=== PATIENT | female | born 1955 | race Caucasian/White ===

== ENCOUNTER 2018-08-14 10:35 | Emergency (ER) | payer MEDICAID ==
[~2018-08-14] VITALS: Ht 175.3 cm; Wt 66.7 kg
[2018-08-14 10:35] VITALS: BP 152/91
[~2018-08-14 10:35] MED LIST: ASPI81CH43; [UNRECOGNIZED DRUG - CODE]
[2018-08-14] MEDS ORDERED: KETOROLAC TROMETH 30 MG/ML 1ML VIAL IM ONE (13:45)
== END 2018-08-14 14:27 | disposition home or self-care (01) ==
LOC: ER 10:42
DX: S80.02XA Contusion of left knee, initial encounter (principal); J44.9 Chronic obstructive pulmonary disease, unspecified; I48.91 Unspecified atrial fibrillation; Z88.0 Allergy status to penicillin; Z98.51 Tubal ligation status; X58.XXXA Exposure to other specified factors, initial encounter; Y93.89 Activity, other specified; Y92.89 Other specified places as the place of occurrence of the external cause; Y99.8 Other external cause status
CPT/HCPCS: 29505; 73562; 96372; 99283; J1885

== ENCOUNTER 2021-06-13 18:09 | Emergency (ER) | payer OTHER, MEDICAID ==
[~2021-06-13] VITALS: Ht 172.7 cm; Wt 59.0 kg
[2021-06-13] MEDS ORDERED: KETOROLAC TROMETH 30 MG/ML 1ML VIAL IV ONE (20:15)
[2021-06-13] MEDS ORDERED: fentaNYL CITRATE 100 MCG/2 ML VL IV ONE (20:15)
[2021-06-13 21:14] LABS: Basophils # (auto) 0.1 10 ^3/uL (0-0.2); Basophils % (auto) 0.9 % (0.0-2.0); Eosinophils # (auto) 0 10 ^3/uL (0-0.8); Eosinophils % (auto) 0.1 % (0.0-7.0); Hematocrit 35.6 % (36.0-46.0); Hemoglobin 12.1 g/dL (12.2-16.2); Lymphocytes # (auto) 0.5 10 ^3/uL (0.4-5.4); Lymphocytes % (auto) 5.6 % (10.0-50.0); Mean Corpuscular Hemoglobin 33.5 pg (28.0-32.0); Mean Corpuscular Hgb Conc. 34.1 g/dL (32.0-36.0); Monocytes # (auto) 0.5 10 ^3/uL (0-1.3); Monocytes % (auto) 5.7 % (0.0-12.0); Neutrophils # (auto) 7.8 10 ^3/uL (1.6-8.6); Neutrophils % (auto) 87.7 % (37.0-80.0); Red Blood Cells 3.63 10^6/uL (4.0-5.20); Red Cell Distribution Width 13.2 % (11.8-14.3); White Blood Cell 8.8 10^3/uL (4.4-10.8)
[2021-06-13 21:18] LABS: Albumin 3.7 g/dL (3.4-5.0); BUN/Creatinine Ratio 15.2; Calcium 8.2 mg/dL (8.5-10.1); Potassium 3.4 mmol/L (3.5-5.1)
[2021-06-13 21:23] LABS: Bilirubin, Total 0.7 mg/dL (0.2-1.0); Total Protein 6.2 g/dL (6.4-8.2)
[2021-06-13 21:28] LABS: INR 0.97 (0.9-1.15); Partial Thromboplastin Time 26.8 sec (23.6-33.0)
[2021-06-14] MEDS ORDERED: KETOROLAC TROMETH 30 MG/ML 1ML VIAL IV ONE (03:00)
[2021-06-14 04:15] VITALS: BP 123/78
== END 2021-06-14 04:30 | disposition short-term general hospital (02) ==
LOC: ER 18:10
DX: S32.049A Unspecified fracture of fourth lumbar vertebra, initial encounter for closed fracture (principal); S22.31XA Fracture of one rib, right side, initial encounter for closed fracture; Z88.0 Allergy status to penicillin; Z98.51 Tubal ligation status; S72.102A Unspecified trochanteric fracture of left femur, initial encounter for closed fracture; W18.39XA Other fall on same level, initial encounter; Y93.89 Activity, other specified; Y92.89 Other specified places as the place of occurrence of the external cause; Y99.8 Other external cause status
CPT/HCPCS: 36415; 80053; 84484; 85025; 85610; 85730; 87426; 93005; 96374; 96376; 99285; J1885; J3010

== ENCOUNTER 2022-02-08 10:19 | Emergency (ER) | payer OTHER, MEDICAID ==
[~2022-02-08] VITALS: Ht 172.7 cm; Wt 59.0 kg
[2022-02-08] MEDS ORDERED: HYDROcodone-ACET 5/325MG TAB PO ONE (15:00)
[2022-02-08 15:30] LABS: Basophils # (auto) 0.1 10 ^3/uL (0-0.2); Basophils % (auto) 0.7 % (0.0-2.0); Eosinophils # (auto) 0 10 ^3/uL (0-0.8); Eosinophils % (auto) 0.4 % (0.0-7.0); Hematocrit 34.8 % (36.0-46.0); Hemoglobin 11.7 g/dL (12.2-16.2); Lymphocytes # (auto) 1.8 10 ^3/uL (0.4-5.4); Lymphocytes % (auto) 24.2 % (10.0-50.0); Mean Corpuscular Hemoglobin 33.5 pg (28.0-32.0); Mean Corpuscular Hgb Conc. 33.6 g/dL (32.0-36.0); Mean Corpuscular Volume 99.7 fL (80.0-100.0); Monocytes # (auto) 0.4 10 ^3/uL (0-1.3); Monocytes % (auto) 5.5 % (0.0-12.0); Neutrophils # (auto) 5.3 10 ^3/uL (1.6-8.6); Neutrophils % (auto) 69.2 % (37.0-80.0); Red Blood Cells 3.49 10^6/uL (4.0-5.20); Red Cell Distribution Width 12.7 % (11.8-14.3); White Blood Cell 7.6 10^3/uL (4.4-10.8)
[2022-02-08 16:03] LABS: Albumin 4.1 g/dL (3.4-5.0); BUN/Creatinine Ratio 25.9; Calcium 8.4 mg/dL (8.5-10.1); Potassium 4.2 mmol/L (3.5-5.1)
[2022-02-08 16:07] LABS: Bilirubin, Total 0.5 mg/dL (0.2-1.0); Total Protein 6.7 g/dL (6.4-8.2)
[2022-02-08 17:00] VITALS: BP 141/85
== END 2022-02-08 17:00 | disposition home or self-care (01) ==
LOC: EDBD 10:19 → ER 10:19
DX: N20.0 Calculus of kidney (principal); K80.80 Other cholelithiasis without obstruction; I48.91 Unspecified atrial fibrillation; J44.9 Chronic obstructive pulmonary disease, unspecified; F17.210 Nicotine dependence, cigarettes, uncomplicated; Z90.89 Acquired absence of other organs; Z79.82 Long term (current) use of aspirin; Z79.899 Other long term (current) drug therapy; Z88.0 Allergy status to penicillin; V49.9XXA Car occupant (driver) (passenger) injured in unspecified traffic accident, initial encounter; Y93.89 Activity, other specified; Y92.89 Other specified places as the place of occurrence of the external cause; Y99.8 Other external cause status
CPT/HCPCS: 36415; 74176; 76705; 80053; 83690; 85025; 93005

== ENCOUNTER 2024-03-08 16:53 | Inpatient (IN) | payer OTHER, MEDICAID ==
[~2024-03-08] VITALS: Ht 167.6 cm; Wt 67.4 kg
--- NOTE | 2024-03-08 17:38 | ED.PDOC ---
Musculoskeletal HPI Comments 69Y F with PMHx Afib, COPD, and CA presents to ED via EMS for chief complaint rt ankle pain s/p fall. Pt states she tried getting up from walker when she slipped, fell, and landed on her rt ankle. Pt presents to ED with rt ankle deformity, swelling, and redness. Allergies include PCNs. Chief Complaint: Lower Extremity Time Seen by MD: 17:23 Primary Care Provider: UNKNOWN Reviewed Notes: Medications, Allergies Allergies: Coded Allergies: Penicillins (Verified Allergy, Intermediate, 02/08/22) Home Meds Reported Medications Hxsuyzzuv-Hvo-Mi W/Apap (Cough Syrup M) Syp 10/07/11 Aspirin (Asa) 81 Mg Ch 10/07/11 Information Source: Patient, Emergency Med Personnel Mode of Arrival: EMS Brought in by: EMS Location: Right Extremity Location: Ankle Timing: Hours Prehospital treatment: Other Severity: Severe Able to Move Extremity: No Bear Weight: No Pain: Severe Mechanism: Twisting Circumstances: Fall Onset of Symptoms: After Trauma Symptoms: Swelling, Pain, Erythema DVT Risk Factors: NONE Last Tetanus: UTD Associated signs and symptoms: Ankle pain Past Medical History PAST MEDICAL HISTORY: AFIB, Cancer, COPD Surgical History: Tonsillectomy, Tubal Ligation 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 Family History Family History: Reviewed,noncontributory to illness Social History Smoker: Cigarettes Alcohol: Denies ETOH Use Drugs: Denies Drug Use Lives In: Home Constitutional: denies: chills, diaphoresis, fatigue, fever, malaise, sweats, weakness, others EENTM: denies: blurred vision, double vision, ear bleeding, ear discharge, ear drainage, ear pain, ear ringing, eye pain, eye redness, hearing loss, mouth pain, mouth swelling, nasal discharge, nose bleeding, nose congestion, nose pain, photophobia, tearing, throat pain, throat swelling, voice changes, others Respiratory: denies: cough, hemoptysis, orthopnea, SOB at rest, shortness of breath, SOB with excertion, stridor, wheezing, others Cardiovascular: denies: chest pain, dizzy spells, diaphoresis, Dyspnea on exertion, edema, irregular heart beat, left arm pain, lightheadedness, palp itations, PND, syncope, others Gastrointestinal: denies: abdomen distended, abdominal pain, blood streaked bowels, constipated, diarrhea, dysphagia, difficulty swallowing, hematemesis, melena, nausea, poor appetite, poor fluid intake, rectal bleeding, rectal pain, vomiting, others Genitourinary: denies: abnormal vagina bleeding, burning, dyspareunia, dysuria, flank pain, frequency, hematuria, incontinence, pain, , vagina discharge, urgency, others Neurological: denies: dizziness, fainting, headache, left sided numbness, left sided weakness, numbness, paresthesia, pre-existing deficit, right sided numbness, right sided weakness, seizure, speech problems, tingling, tremors, weakness, others Musculoskeletal: reports: others (rt ankle pain); denies: back pain, gout, joint pain, joint swelling, muscle pain, muscle stiffness, neck pain Integumetry: denies: bruises, change in color, change in hair/nails, dryness, laceration, lesions, lumps, rash, wounds, others Allergic/Immunocompromised: denies: Difficulty Healing, Frequent Infections, Hives, Itching, others Hematologic/Lymphatic: denies: anemia, blood clots, easy bleeding, easy bruising, swollen glands, others Endocrine: denies: excessive hunger, excessive sweating, excessive thirst, excessive urination, flushing, intolerance to cold, intolerance to heat, unexplained weight gain, unexplained weight loss, others Psychiatric: denies: anxiety, bipolar disorder, depression, hopeless, panic disorder, schizophrenia, sleepless, suicidal, others All Other Systems: Reviewed and Negative Physical Exam General Appearance: No Apparent Distress, Normal HEENT: Normal ENT Inspection, Pharynx Normal, TMs Normal Neck: Full Range of Motion, Non-Tender, Normal, Normal Inspection Respiratory: Chest Non-Tender, Lungs Clear, No Accessory Muscle Use, No Respiratory Distress, Normal Breath Sounds Cardiovascular: No Edema, No JVD, No Murmur, No Gallop, Normal Peripheral Pulses, Regular Rate/Rhythm Breast Exam: Deferred Gastrointestinal: No Organomegaly, Non Tender, No Pulsatile Mass, Normal Bowel Sounds, Soft Genitalia: Deferred Pelvic: Deferred Rectal: Deferred Extremities: No calf tenderness, Normal inspection, No pedal edema Musculoskeletal : Location: Right Extremity Location: Ankle Apperance: Swelling, Deformity, Limited ROM, Tenderness: Severe Neurologic: Alert, 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 Was a procedure done?: Yes Sedation Sedation?: Yes Informed consent obtained: Yes Sedation start time: 20:03 Sedation end time: 20:03 Sedation provider statement: Seraj Reduction Indication: Subluxation, Fracture Sedation: Ankle Intra-articular anesthetic juan: No Post-reduction x-ray show: Reduction, Good Alignment Informed consent obtained: Yes Risks/benefits/alt described: Yes Differential Diagnosis EXT Differential Diagnosis: Fracture, Sprain, Dislocation, Contusion, Strain X-Ray, Labs, Meds, VS Vital Signs Date Time Temp Pulse Resp B/P (MAP) Pulse Ox O2 Delivery O2 Flow Rate FiO2 03/08/24 19:20 98.7 90 18 124/69 (87) 95 98.7 03/08/24 18:45 87 15 140/84 03/08/24 18:15 89 15 96 Room Air* 0 21 03/08/24 18:15 89 15 150/73 (98) 96 03/08/24 17:08 98.6 100 14 145/97 (113) 98 Lab Test 03/08/24 18:18 Range/Units White Blood Count 5.4 4.4-10.8 10^3/uL Red Blood Count 3.23 L 4.0-5.20 10^6/uL Hemoglobin 10.4 L 12.2-16.2 g/dL Hematocrit 31.0 L 36.0-46.0 % Mean Corpuscular Volume 96.0 80.0-100.0 fL Mean Corpuscular Hemoglobin 32.1 H 28.0-32.0 pg Mean Corpuscular Hemoglobin Concent 33.4 32.0-36.0 g/dL Red Cell Distribution Width 14.4 H 11.8-14.3 % Platelet Count 243 140-450 10^3/uL Mean Platelet Volume 7.8 6.9-10.8 fL Neutrophils (%) (Auto) 71.9 37.0-80.0 % Lymphocytes (%) (Auto) 20.1 10.0-50.0 % Monocytes (%) (Auto) 6.5 0.0-12.0 % Eosinophils (%) (Auto) 0.5 0.0-7.0 % Basophils (%) (Auto) 1.0 0.0-2.0 % Neutrophils # (Auto) 3.8 1.6-8.6 10 ^3/uL Lymphocytes # (Auto) 1.1 0.4-5.4 10 ^3/uL Monocytes # (Auto) 0.3 0-1.3 10 ^3/uL Eosinophils # (Auto) 0 0-0.8 10 ^3/uL Basophils # (Auto) 0.1 0-0.2 10 ^3/uL Nucleated Red Blood Cells 0.0 % Prothrombin Time 10.9 9.3-11.8 sec Prothrombin Time INR 1.03 0.9-1.15 Sodium Level 146 H 136-145 mmol/L Potassium Level 3.3 L 3.5-5.1 mmol/L Chloride Level 113 H 98-107 mmol/L Carbon Dioxide Level 25 20-31 mmol/L Anion Gap 8 5-15 Blood Urea Nitrogen 19 9-23 mg/dL Creatinine 1.02 0.550-1.02 mg/dL Glomerular Filtration Rate Calc 59 >90 mL/min BUN/Creatinine Ratio 18.6 10.0-20.0 Serum Glucose 141 H 74-106 mg/dL Calcium Level 9.4 8.7-10.4 mg/dL Total Bilirubin 0.3 0.2-1.0 mg/dL Aspartate Amino Transferase (AST) 12 L 13-40 U/L Alanine Aminotransferase (ALT) 14 7-40 U/L Alkaline Phosphatase 69 46-116 U/L Total Protein 5.5 L 5.7-8.2 g/dL Albumin 3.8 3.2-4.8 g/dL Current Medications Medications (Trade) Dose Ordered Sig/Jez Route Start Time Stop Time Status Last Admin Morphine Sulfate 4 mg ONCE ONCE IV 03/08/24 18:45 03/08/24 18:46 DC 03/08/24 18:45 Ondansetron HCl (Zofran) 4 mg ONCE ONCE IV 03/08/24 18:45 03/08/24 18:46 DC 03/08/24 18:47 Midazolam HCl (Versed Injection) 1 mg ONCE ONCE IV 03/08/24 19:00 03/08/24 19:02 DC 03/08/24 19:[address] [address] Ph: [phone] DIAGNOSTIC IMAGING Diagnostic Imaging Report : [id number] Signed PATIENT: ZIA CONNOLLY ACCT: [id number] UNIT: [id number] : 1955 LOC: ER ROOM / BED: / AGE / SEX: 69 / F ADM STATUS: REG ER SERVICE 174 ORDERING PHYSICIAN: THOMAS SHANNON MD PROCEDURE(s): RANK2 - R ANKLE 2 VIEW XRAY REASON: ankle pain ORDER NUMBER(s): [id number], ACCESSION NUMBER(s): [id number] EXAM: XY R ANKLE 2 VIEW XRAY CLINICAL HISTORY: ankle pain COMPARISON: None TECHNIQUE: XY R ANKLE 2 VIEW XRAY Findings/Impression: 2 views of the right ankle. Moderately displaced comminuted fractures of the distal tibial and fibular metadiaphyses with moderate lateral angulation of the distal fracture fragments. Moderate soft tissue edema. Possible nondisplaced longitudinal fracture of the distal 2nd metatarsal. There is no evidence of dislocation, blastic, or lytic lesions. No radiopaque foreign bodies. ATED BY: DANA SMITH DO DICTATED DATE/TIME: 03/08/241847 SIGNED BY: DANA SMITH DO SIGNED DATE/TIME: 03/08/241847 CC: X-Ray, Labs, Meds, VS Comment [age] old female presents emergency room secondary to right ankle pain and deformity. Patient was walking when she had to be given trip and fall. She t hen noted her ankle was angulated medially. She was going to have sensation intact and able to move her toes. Pulses are intact. Patient states any movement of the ankle causes severe pain. X-ray shows a comminuted angulated fracture. My reached out to the orthopedic surgeon on-call, Dr. Padron who accepted the patient. Time of 1ST Reevaluation: 17:53 Reevaluation 1ST: Unchanged Patient Education/Counseling: Diagnosis, Treatment Family Education/Counseling: No Family Present Critical Care Note Critical Care Time?: No Stability Stability form required: No Heart Score Heart Score: Heart Score Response (Comments) Value History N/A 0 EKG N/A 0 Age N/A 0 Risk Factors N/A 0 Troponin N/A 0 Total 0 I personally scribed for TH[facility]ON [facility] on 03/08/24 at 17:38. Electronically submitted by Lay Wang ([facility] I personally scribed for THOMAS SHANNON MD ([facility]) on 03/08/24 at 18:45. Electronically submitted by Gómez Diallo ([facility]). I personally scribed for THOMAS SHANNON MD ([facility]) on 03/08/24 at 18:54. Electronically submitted by Lay Wang ([facility] THOMAS SHANNON MD Mar 08, 2024 17:38
[2024-03-08 18:15] VITALS: PULSE 89; RESP 15; O2SAT 96
[2024-03-08] MEDS: MORPHINE SULFATE 4 MG/ML SYR/VIAL IV ONE (18:45)
[2024-03-08] MEDS: ONDANSETRON HCL 4 MG/2 ML VIAL IV ONE (18:47)
[2024-03-08 18:49] LABS: Basophils # (auto) 0.1 10 ^3/uL (0-0.2); Eosinophils # (auto) 0 10 ^3/uL (0-0.8); Eosinophils % (auto) 0.5 % (0.0-7.0); Hemoglobin 10.4 g/dL (12.2-16.2); Lymphocytes # (auto) 1.1 10 ^3/uL (0.4-5.4); Lymphocytes % (auto) 20.1 % (10.0-50.0); Mean Corpuscular Hemoglobin 32.1 pg (28.0-32.0); Mean Corpuscular Hgb Conc. 33.4 g/dL (32.0-36.0); Monocytes # (auto) 0.3 10 ^3/uL (0-1.3); Monocytes % (auto) 6.5 % (0.0-12.0); Neutrophils # (auto) 3.8 10 ^3/uL (1.6-8.6); Neutrophils % (auto) 71.9 % (37.0-80.0); Platelet Count (auto) 243 10^3/uL (140-450); Red Blood Cells 3.23 10^6/uL (4.0-5.20); Red Cell Distribution Width 14.4 % (11.8-14.3); White Blood Cell 5.4 10^3/uL (4.4-10.8)
--- NOTE | 2024-03-08 18:50 | DVH ---
EXAM: XY R ANKLE 2 VIEW XRAY CLINICAL HISTORY: ankle pain COMPARISON: None TECHNIQUE: XY R ANKLE 2 VIEW XRAY Findings/Impression: 2 views of the right ankle. Moderately displaced comminuted fractures of the distal tibial and fibular metadiaphyses with moderat e lateral angulation of the distal fracture fragments. Moderate soft tissue edema. Possible nondisplaced longitudinal fracture of the distal 2nd metatarsal. There is no evidence of dislocation, blastic, or lytic lesions. No radiopaque foreign bodies.
[2024-03-08 19:03] LABS: INR 1.03 (0.9-1.15); Prothrombin Time 10.9 sec (9.3-11.8)
[2024-03-08 19:12] LABS: Alanine Aminotransferase 14 U/L (7-40); Albumin 3.8 g/dL (3.2-4.8); Alkaline Phosphatase 69 U/L (46-116); Anion Gap 8 (5-15); BUN/Creatinine Ratio 18.6 (10.0-20.0); Blood Urea Nitrogen 19 mg/dL (9-23); Calcium 9.4 mg/dL (8.7-10.4); Carbon Dioxide 25 mmol/L (20-31)
[2024-03-08] MEDS: MIDAZOLAM HCL 2MG/2ML 2ml VIAL (1mg/ml) IV ONE (19:12)
[2024-03-08 19:13] LABS: Bilirubin, Total 0.3 mg/dL (0.2-1.0)
[2024-03-08 19:15] VITALS: PULSE 100; RESP 15; O2SAT 100
[2024-03-08 19:24] LABS: Chloride 113 mmol/L (98-107); Potassium 3.3 mmol/L (3.5-5.1); Sodium 146 mmol/L (136-145)
[2024-03-08 19:25] LABS: Aspartate Aminotransferase 12 U/L (13-40); Glucose 141 mg/dL (74-106); Total Protein 5.5 g/dL (5.7-8.2)
[2024-03-08] MEDS ORDERED: NITROGLYCERIN 0.4 MG SL TAB SL PRN (19:30)
[2024-03-08] MEDS: ENOXAPARIN SOD 40 MG/0.4 ML SYRINGE SC SCH (19:30)
[2024-03-08] MEDS ORDERED: MORPHINE SULFATE INJ 2 MG/ml SYRG IV PRN (19:30)
[2024-03-08] MEDS ORDERED: ACETAMINOPHEN 325 MG TAB PO PRN (19:30)
[2024-03-08] MEDS: KETAMINE 50mg/ML 10ml Vial (500mg/10ml) IM ONE (19:52)
[2024-03-08] MEDS: SODIUM CHLORIDE 0.9% 1,000 ML IV SCH (20:30)
--- NOTE | 2024-03-08 21:17 | DVH ---
EXAM: XY R ANKLE 2 VIEW XRAY CLINICAL HISTORY: POST REDUCTION COMPARISON: XY R ANKLE 2 VIEW XRAY on DOS: 03/08/24 TECHNIQUE: XY R ANKLE 2 VIEW XRAY Findings/Impression: 2 views of the right ankle. Suboptimal visualization of the fine osseous and soft tissue details due to the overlying fibrous spl int. Improved alignment of the comminuted fractures of the distal tibia and fibula with mild residual ante rior angulation of the distal fracture fragments. There is no evidence of dislocation, blastic, or lytic lesions.
--- NOTE | 2024-03-08 22:13 | DVHHPRES ---
History of Present Illness Resident Creating Document: RAMONA GARNER RESIDENT Reason for Visit: Right ankle fracture History of Present Illness 69-year-old female patient with past medical history of atrial fibrillation managed with the diltiazem and aspirin 325 mg daily, peripheral neuropathy, chronic obstructive pulmonary disease and remote history of bone cancer and reportedly diagnosed in 1969 that resolved . She presented to the emergency department after a fall at home. The patient states she was attempting to use her walker and she lost her balance and fell, landing directly on her right foot. She reports pain and inability to bear weight on the affected limb. Imaging in the ED confirmed comminuted fracture of the right ankle. The patient reports significant pain on palpation of the right ankle but denies numbness, tingling or other complaints. She has been given pain medication during the ED stay, which has provided partial relief. The patient denies any recent fever, shortness of breath, chest pain or other systemic symptoms. She is a former smoker but currently uses electronic cigarette (Truzip), despite counseling to discontinue due to her underlying COPD. Her medication history includes diltiazem, aspirin 325 mg daily, ibuprofen, diltiazem, Ventolin p.r.n. . She has a known allergy to penicillin and declines anticoagulation with Lovenox due to concerns about bleeding, given her history of easy bruising. Surgical intervention planning internal and external fixation, scheduled for tomorrow in the morning Patient will need to be NPO since midnight Past Medical History Atrial fibrillation COPD History of bone cancer Family History: None Smoke: No ALCOHOL: none Drugs: None Lives: Alone Domestic Violence: Neg Review of Systems Review of Systems Constitutional: No: Fever, Chills, Sweats, Weakness, Malaise, patient reports significant pain in the right ankle following the fall. ENT: No: Ear pain, Ear discharge, Nose pain, Nose discharge, Nose congestion, Mouth pain, Mouth swelling, Throat pain, Throat swelling, Other Respiratory: Denies shortness of breath, cough, or wheezing currently. History of COPD with the ongoing use of an electronic cigarettes Cardiovascular: No: Chest Pain, Palpitations, Orthopnea, Paroxysmal Noc. Dyspnea, Edema, Lt Headedness, Other Gastrointestinal: No: Nausea, Vomiting, Abdominal Pain, Diarrhea, Constipation, Melena, Hematochezia, Other Musculoskeletal: Reports severe right ankle pain and inability to bear weight following the fall. Denies pain in the other joints or muscles Neurological:; No: Weakness, Numbness, Incoordination, Change in speech, Confusion, Seizures Allergies: Coded Allergies: Penicillins (Verified Allergy, Intermediate, 02/08/22) Medications Current Medications Medications Dose Ordered Sig/Jez Route Start Time Stop Time Status Last Admin Dose Admin Sodium Chloride 1,000 ml @ 60 mls/hr [id number] IV 03/08/24 19:30 03/08/24 20:30 60 MLS/HR Acetaminophen 650 mg Q6HP PRN PO 03/08/24 19:30 Morphine Sulfate 2 mg Q4HPRN PRN IV 03/08/24 19:30 Enoxaparin Sodium 40 mg DAILY SC 03/08/24 19:30 Nitroglycerin 0.4 mg Q5MINP PRN SL 03/08/24 19:30 Morphine Sulfate 2 mg Q30M PRN IV 03/08/24 19:30 Exam Vital Signs Vital Signs Date Time Temp Pulse Resp B/P (MAP) Pulse Ox O2 Delivery O2 Flow Rate FiO2 03/08/24 21:00 98 18 146/82 (103) 100 03/08/24 20:19 6.0 03/08/24 19:20 98.7 98.7 03/08/24 19:15 Room Air* 21 Exam Examination General Appearance: Alert, Oriented X3, Cooperative, No acute distress HEENT: EOMI Respiratory: Clear to auscultation, Normal air movement Cardiovascular: Irregularly irregular rhythm without murmurs, rubs or gallops. Peripheral pulses 2+ bilaterally Abdominal: Normal bowel sounds Extremities: Swelling and ecchymosis noted over the lateral malleolus, significant tenderness on palpation of the lateral and medial malleolus, limited range of motion due to pain, no gross deformity or open wounds. Skin: Several bruises in the upper extremities were noted during physical exam Labs/Xrays Labs Test 03/08/24 18:18 Range/Units White Blood Count 5.4 4.4-10.8 10^3/uL Red Blood Count 3.23 L 4.0-5.20 10^6/uL Hemoglobin 10.4 L 12.2-16.2 g/dL Hematocrit 31.0 L 36.0-46.0 % Mean Corpuscular Volume 96.0 80.0-100.0 fL Mean Corpuscular Hemoglobin 32.1 H 28.0-32.0 pg Mean Corpuscular Hemoglobin Concent 33.4 32.0-36.0 g/dL Red Cell Distribution Width 14.4 H 11.8-14.3 % Platelet Count 243 140-450 10^3/uL Mean Platelet Volume 7.8 6.9-10.8 fL Neutrophils (%) (Auto) 71.9 37.0-80.0 % Lymphocytes (%) (Auto) 20.1 10.0-50.0 % Monocytes (%) (Auto) 6.5 0.0-12.0 % Eosinophils (%) (Auto) 0.5 0.0-7.0 % Basophils (%) (Auto) 1.0 0.0-2.0 % Neutrophils # (Auto) 3.8 1.6-8.6 10 ^3/uL Lymphocytes # (Auto) 1.1 0.4-5.4 10 ^3/uL Monocytes # (Auto) 0.3 0-1.3 10 ^3/uL Eosinophils # (Auto) 0 0-0.8 10 ^3/uL Basophils # (Auto) 0.1 0-0.2 10 ^3/uL Nucleated Red Blood Cells 0.0 % Prothrombin Time 10.9 9.3-11.8 sec Prothrombin Time INR 1.03 0.9-1.15 Sodium Level 146 H 136-145 mmol/L Potassium Level 3.3 L 3.5-5.1 mmol/L Chloride Level 113 H 98-107 mmol/L Carbon Dioxide Level 25 20-31 mmol/L Anion Gap 8 5-15 Blood Urea Nitrogen 19 9-23 mg/dL Creatinine 1.02 0.550-1.02 mg/dL Glomerular Filtration Rate Calc 59 >90 mL/min BUN/Creatinine Ratio 18.6 10.0-20.0 Serum Glucose 141 H 74-106 mg/dL Calcium Level 9.4 8.7-10.4 mg/dL Total Bilirubin 0.3 0.2-1.0 mg/dL Aspartate Amino Transferase (AST) 12 L 13-40 U/L Alanine Aminotransferase (ALT) 14 7-40 U/L Alkaline Phosphatase 69 46-116 U/L Total Protein 5.5 L 5.7-8.2 g/dL Albumin 3.8 3.2-4.8 g/dL Assessment/Plan Assessment/Plan #Comminuted fracture of the right ankle due to trauma from a fall -Surgical intervention planned for tomorrow -Orthopedic consultation -NPO -PTT/PT -type and screen #History of Atrial fibrillation -managed with diltiazem an aspirin -patient did not tolerate Lovenox, high-risk bleeding #COPD, not on exacerbation #History of smoking , currently using an electronic cigarette -Oxygen supplementation through nasal cannula -smoking cessation counseling #Fall risk prevention -Recommend physical therapy eval postoperatively #History of bone cancer (per patient) -monitor Case discussed with Dr. Jarquin Goals of care discussed with the patient for 32 minutes Code status: Full code Plan discussed with: Patient My Orders Orders - RAMONA GARNER RESIDENT Procedure Category Date Status Time Admit ADMIT 03/08/24 Transmitted 19:28 Allergies OMAR 03/08/24 In Process 19:28 Code Status CODE 03/08/24 Transmitted 19:28 Sodium Chloride 0.9% PHA 03/08/24 In Process 19:30 Complete Blood Count LAB 03/09/24 Verified 04:00 Comprehensive LAB 03/09/24 Verified Metabolic Panel 04:00 Cardiac DIET 03/09/24 Transmitted Diet-2gna,Lofat,Lochol Breakfast Pt Request For Service PT 03/08/24 Logged 19:28 Echo 2d Mode Cardiac US 03/08/24 Logged DOP 19:28 Acetaminophen Tablet PHA 03/08/24 In Process (Tylenol Tablet) 19:30 Morphine Sulfate PHA 03/08/24 In Process Injection 19:30 Enoxaparin Sodium PHA 03/08/24 In Process (Lovenox) 19:30 Nitroglycerin PHA 03/08/24 In Process Sublingual (Ntrostat 19:30 Morphine Sulfate PHA 03/08/24 In Process Injection 19:30 Oxygen By Nasal RT 03/08/24 Transmitted Cannula 19:28 Stat Ekg For Chest OMAR 03/08/24 In Process Pain 19:28 Notify Of Changes OMAR 03/08/24 In Process From Base 19:28 Electric Meter Repairer For OMAR 03/08/24 In Process 24 Hours 19:28 Emergency Dysrhythmia OMAR 03/08/24 In Process Protocol 19:28 Rhythm Strips Once OMAR 03/08/24 In Process Every Shift 19:28 Date of Service: Mar 08, 2024 Billing Provider: MISTI JARQUIN MD Common Visit Codes: 09613-[id number] INP/OBS CARE (HIGH) Secondary Visit Codes: 45748-[id number] CARE PLAN 30 MINUTES RAMONA GARNER RESIDENT Mar 08, 2024 22:13 MISTI JARQUIN MD Mar 11, 2024 12:02
[2024-03-08 22:56] VITALS: BP 121/66; PULSE 97; RESP 18; TEMP 98.1; O2SAT 94
[2024-03-08] MEDS: MORPHINE SULFATE INJ 2 MG/ml SYRG IV PRN (23:02)
[2024-03-08 23:55] LABS: INR 1.05 (0.9-1.15); Partial Thromboplastin Time 24.9 SEC (24.5-34.5); Prothrombin Time 11.1 sec (9.3-11.8)
[2024-03-09] VITALS (8 sets, daily range): BP systolic 107–141; BP diastolic 63–83; PULSE 92–113; RESP 14–18; TEMP 97.6–98.5; O2SAT 91–98
[2024-03-09] MEDS: POTASSIUM EFFERVESENT TAB 25 MEQ PO ONE ×2 (00:06→05:12)
[2024-03-09] MEDS: PANTOPRAZOLE 40 MG/10 ML VIAL INJ IV ONE (00:10)
[2024-03-09] MEDS ORDERED: FAMO-12 PO (02:45)
[2024-03-09] MEDS ORDERED: IBUP-1455 PO (02:45)
[2024-03-09] MEDS ORDERED: CYAN-17 PO (02:45)
[2024-03-09] MEDS ORDERED: CHOL200021 PO (02:45)
[2024-03-09] MEDS ORDERED: ALBUAER3 IN (02:45)
[2024-03-09] MEDS ORDERED: ASPI325T6 PO (02:45)
--- NOTE | 2024-03-09 04:09 | DVH ---
CHEST RADIOGRAPH Indication: preop Technique: Single frontal view of the chest was obtained Comparison: EKG on DOS: 02/08/22 IMPRESSION: The heart appears normal in size. No sizable effusion or pneumothorax. The right lung appears clear. Somewhat irregular appearance of the left hilum which may be vascular versus mass. Attention on follo w-up versus cross-sectional imaging is recommended when the patient is clinically able.
[2024-03-09 06:55] LABS: Basophils # (auto) 0 10 ^3/uL (0-0.2); Eosinophils # (auto) 0 10 ^3/uL (0-0.8); Hematocrit 24.8 % (36.0-46.0); Lymphocytes # (auto) 1.2 10 ^3/uL (0.4-5.4); Monocytes # (auto) 0.5 10 ^3/uL (0-1.3); Nucleated Red Blood Cells % 0.1 %; White Blood Cell 5.4 10^3/uL (4.4-10.8)
[2024-03-09 06:57] LABS: Basophils % (auto) 0.6 % (0.0-2.0); Eosinophils % (auto) 0.4 % (0.0-7.0); Hemoglobin 8.4 g/dL (12.2-16.2); Lymphocytes % (auto) 21.3 % (10.0-50.0); Mean Corpuscular Hemoglobin 32.6 pg (28.0-32.0); Mean Corpuscular Hgb Conc. 33.8 g/dL (32.0-36.0); Mean Corpuscular Volume 96.2 fL (80.0-100.0); Monocytes % (auto) 8.5 % (0.0-12.0); Neutrophils # (auto) 3.8 10 ^3/uL (1.6-8.6); Neutrophils % (auto) 69.2 % (37.0-80.0); Platelet Count (auto) 200 10^3/uL (140-450); Red Blood Cells 2.58 10^6/uL (4.0-5.20); Red Cell Distribution Width 14.3 % (11.8-14.3)
[2024-03-09 07:06] LABS: Alanine Aminotransferase 13 U/L (7-40); Albumin 3.4 g/dL (3.2-4.8); Alkaline Phosphatase 60 U/L (46-116); Anion Gap 5 (5-15); Aspartate Aminotransferase 13 U/L (13-40); BUN/Creatinine Ratio 20.5 (10.0-20.0); Blood Urea Nitrogen 16 mg/dL (9-23); Calcium 8.8 mg/dL (8.7-10.4); Carbon Dioxide 26 mmol/L (20-31); Glucose 81 mg/dL (74-106); Potassium 3.8 mmol/L (3.5-5.1)
[2024-03-09 07:07] LABS: Bilirubin, Total 0.5 mg/dL (0.2-1.0)
[2024-03-09 07:09] LABS: Chloride 115 mmol/L (98-107); Sodium 146 mmol/L (136-145); Total Protein 4.9 g/dL (5.7-8.2)
[2024-03-09 07:10] LABS: Free T3 2.89 pg/mL (2.3-4.2); Free T4 (Free Thyroxine) 0.94 ng/dL (0.89-1.76)
[2024-03-09 07:35] LABS: % Iron Saturation 17.4 % (15-50)
--- NOTE | 2024-03-09 08:25 | DVHINCON2 ---
Date of service: Mar 09, 2024 Reason for Consultation Right ankle fracture History of Present Illness 69 yo F with multiple medical issues sp mechanical fall and twisted at her right ankle Past Medical History Atrial fibrillation COPD History of bone cancer Family History: Patient reports no known family medical history. Allergies: Coded Allergies: Penicillins (Verified Allergy, Intermediate, 02/08/22) Home Meds Reported Medications Cyanocobalamin (B12) 1,000 Mcg Cap, 1000 MCG PO DAILY, CAP 03/09/24 Famotidine (Famotidine) 20 Mg Tab, 40 MG PO BID for 30 Days, MG 03/09/24 Cholecalciferol (D3) 2,000 Unit Tab, 2000 UNIT PO DAILY, TAB 03/09/24 Albuterol Sulfate (VENTOLIN MDI) 90 Mcg Ih, 90 MCG IN QIDP, INH 03/09/24 Ibuprofen Micronized (Ibuprofen) 800 Mg Tab, 800 MG PO TIDPRN, TAB 03/09/24 Aspirin (Aspirin) 325 Mg Tab, 325 MG PO DAILY for 30 Days, MG 03/09/24 [id number]-[id number] W/Apap (Cough Syrup M) Syp 10/07/11 Aspirin (Asa) 81 Mg Ch 10/07/11 Current Medications Current Medications Medications (Trade) Dose Ordered Sig/Jez Route PRN Reason Start Time Stop Time Status Last Admin Sodium Chloride 1,000 ml @ 60 mls/hr [id number] IV 03/08/24 19:30 03/08/24 20:30 Acetaminophen (Tylenol Tablet) 650 mg Q6HP PRN PO PAIN SCALE 1-3 OR TEMP>100.4 03/08/24 19:30 Morphine Sulfate 2 mg Q4HPRN PRN IV SEVERE PAIN (7-10 PAIN SCALE) 03/08/24 19:30 03/09/24 03:09 Enoxaparin Sodium (Lovenox) 40 mg DAILY SC 03/08/24 19:30 Hold Nitroglycerin (Ntrostat Sublingual) 0.4 mg Q5MINP PRN SL FOR CHEST PAIN 03/08/24 19:30 Morphine Sulfate 2 mg Q30M PRN IV FOR CHEST PAIN 03/08/24 19:30 Pantoprazole Sodium (Protonix) 40 mg DAILY IV 03/09/24 10:00 Review of Systems as per HPI Vital Signs Vital Signs Date Time Temp Pulse Resp B/P (MAP) Pulse Ox O2 Delivery O2 Flow Rate FiO2 03/09/24 05:00 97.7 95 17 107/63 (78) 91 97.7 03/08/24 22:56 Room Air* 0 21 Physical Exam NAD RLE: splint in place +ehl/fhl foot wwp Labs/Diagnostic Data Labs Test 03/09/24 05:48 03/08/24 23:06 03/08/24 18:18 Range/Units White Blood Count 5.4 4.4-10.8 10^3/uL Red Blood Count 2.58 L 4.0-5.20 10^6/uL Hemoglobin 8.4 #L 12.2-16.2 g/dL Hematocrit 24.8 #L 36.0-46.0 % Mean Corpuscular Volume 96.2 80.0-100.0 fL Mean Corpuscular Hemoglobin 32.6 H 28.0-32.0 pg Mean Corpuscular Hemoglobin Concent 33.8 32.0-36.0 g/dL Red Cell Distribution Width 14.3 11.8-14.3 % Platelet Count 200 140-450 10^3/uL Mean Platelet Volume 8.0 6.9-10.8 fL Neutrophils (%) (Auto) 69.2 37.0-80.0 % Lymphocytes (%) (Auto) 21.3 10.0-50.0 % Monocytes (%) (Auto) 8.5 0.0-12.0 % Eosinophils (%) (Auto) 0.4 0.0-7.0 % Basophils (%) (Auto) 0.6 0.0-2.0 % Neutrophils # (Auto) 3.8 1.6-8.6 10 ^3/uL Lymphocytes # (Auto) 1.2 0.4-5.4 10 ^3/uL Monocytes # (Auto) 0.5 0-1.3 10 ^3/uL Eosinophils # (Auto) 0 0-0.8 10 ^3/uL Basophils # (Auto) 0 0-0.2 10 ^3/uL Nucleated Red Blood Cells 0.1 % Sodium Level 146 H 136-145 mmol/L Potassium Level 3.8 3.5-5.1 mmol/L Chloride Level 115 H 98-107 mmol/L Carbon Dioxide Level 26 20-31 mmol/L Anion Gap 5 5-15 Blood Urea Nitrogen 16 9-23 mg/dL Creatinine 0.78 0.550-1.02 mg/dL Glomerular Filtration Rate Calc 82 >90 mL/min BUN/Creatinine Ratio 20.5 H 10.0-20.0 Serum Glucose 81 74-106 mg/dL Calcium Level 8.8 8.7-10.4 mg/dL Iron Level 50 50-170 ug/dL Total Iron Binding Capacity 287 250-425 ug/dL Percent Iron Saturation 17.4 15-50 % Ferritin 20.9 10-291 ng/mL Total Bilirubin 0.5 0.2-1.0 mg/dL Aspartate Amino Transferase (AST) 13 13-40 U/L Alanine Aminotransferase (ALT) 13 7-40 U/L Alkaline Phosphatase 60 46-116 U/L Total Protein 4.9 L 5.7-8.2 g/dL Albumin 3.4 3.2-4.8 g/dL Vitamin D 25-Hydroxy 32.7 30.0-100 ng/mL Free Thyroxine (T4) Calculated 0.94 0.89-1.76 ng/dL Free Triiodothyronine (T3) pg/mL 2.89 2.3-4.2 pg/mL Prothrombin Time 11.1 9.3-11.8 sec Prothrombin Time INR 1.05 0.9-1.15 Activated Partial Thromboplast Time 24.9 24.5-34.5 SEC Thyroid Stimulating Hormone (TSH) 5.57 H 0.55-4.78 uIU/mL Plan/Recommendation 69 yo F sp fall wtih displaced right distal tibia/fibula fracture 1. NWB RLE 2. cont splint 3. plan for open reduction internal fixation of right distal tibia/ fibula fracture 4. cardiac clearance - pending 5. plan for surgery once cleared Plan discussed with: Patient YANG CONLEY MD Mar 09, 2024 08:25
[2024-03-09] MEDS: PANTOPRAZOLE 40 MG/10 ML VIAL INJ IV SCH (09:15)
--- NOTE | 2024-03-09 10:00 | DVH ---
Procedure: CT CHEST WITHOUT CONTRAST Reason for study/Clinical History: possible mediastenal mass. Comparison Study: None available at time of dictation. Exam Date: 03/09/2024 08:37 AM TECHNIQUE: Multidetector CT of the chest was performed from the lung apices to the upper abdomen with out the use of intravenous contract. Axial, coronal and sagittal multiplanar reformats were performed . Radiation Dose Information: CT Dose: CTDI volume is 5.14 mGy. Dose-length product is 192.24 mGy*cm The dose indicators for CT are the volume Computed Tomography (CT) Dose Index (CTDIvol) and the Dose Length Product (DLP), and are measured in units of mGy and mGy-cm, respectively. These indicators are not patient dose, but values generated from the CT scanner acquisition factors. The report includes radiation exposure data for exposures received during this examination. FINDINGS: Lower neck: Normal thyroid. Lungs: Moderate to severe centrilobular emphysema. Vague ground-glass densities in the right middle l obe may reflect mild atypical pneumonia. Bibasilar atelectasis. No pleural effusion or pneumothorax . Heart/Vascular Structures: Normal heart size. No pericardial effusion. No mediastinal mass is seen. Lymph Nodes: No adenopathy Pleura: No pleural effusion or significant pneumothorax. Musculoskeletal: No acute osseous abnormality. Soft tissues: Normal. Upper abdomen: Limited portions of the upper abdomen are unremarkable. IMPRESSION: 1. No mediastinal mass is seen. 2. Vague ground-glass densities seen in the right middle lobe may reflect mild atypical pneumonia. Re commend follow-up noncontrast chest CT in 3 months to evaluate for stability. 3. Moderate to severe centrilobular emphysema. Radiation optimization: All CT scans at this facility use at least one of these dose optimization chaya hniques: automated exposure control mA and/or kV adjustment per patient size (includes targeted exam s where dose is matched to clinical indication) or iterative reconstruction.
--- NOTE | 2024-03-09 10:07 | DVH ---
Procedure: CT CT R ANKLE WO CONTRAST 03/09/2024 08:34 AM Indication: fracture Comparison Study: Radiograph dated 03/08/2024 Technique: Axial images of the right ankle were obtained and reformatted in coronal and sagittal plan es. All CT scans at this medical facility are performed using dose modulation techniques as appropriate t o a performed exam including the following: Automated exposure control was utilized; adjustment of th e MA and/or KV according to patient size; and use of iterative reconstruction technique. CT Dose: CTDI volume is 7.75 mGy. Dose-length product is 187.68 mGy*cm FINDINGS: Bones: Comminuted, impacted, apex dorsal angulated distal tibial metadiaphysis. Acute nondisplaced fr acture of the anterior -medial tibial plafond noted. Acute, impacted comminuted distal fibular shaft noted. Old corticated avulsion fracture of the lateral malleolus is seen. There is a cast overlying t he ankle. Soft tissues: Diffuse soft tissue swelling noted. Moderate atherosclerotic calcification is seen. Th ere is no discontinuity of the Achilles tendon. IMPRESSION: Distal tibial and fibular fractures status post casting. Diffuse soft tissue swelling noted.
[2024-03-09] MEDS: ENOXAPARIN SOD 40 MG/0.4 ML SYRINGE SC SCH (11:22)
--- NOTE | 2024-03-09 13:11 | DVHPNRES ---
Progress Note Date Seen: Mar 09, 2024 Resident Creating Document: JOSE PRINGLE RESIDENT Medical Necessity Reason Pt with a Central, PICC or Fol: No Subjective Review of Systems Kathy Brooks is a 69-year-old female patient who presents to the ED with chief complaint of lower right ankle and knee pain intensity 10/10 and not being able to bear weight on same limb after sustaining mechanical fall with no loss of consciousness. Mechanism of fall was secondary to attempt to mobilize with walker, but her right hand did not hold properly the walker due to wrist pain, making her lose her balance and falling on the ground from her own height. 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 Current smoker (over 20 pack year history of smoking). Denies alcohol and other drug abuse Allergies: Penicillin Home medication: Diltiazem, aspirin 325 mg p.o. daily, vitamin-D 2000 units daily, ibuprofen 200 mg p.r.n., Pepcid Patient seen and examined at bedside. Continues with exquisite pain especially when moving right lower limb. Has no other complaints. Awaiting cardiological clearance Objective vital signs Vital Sign Date Time Temp Pulse Resp B/P (MAP) Pulse Ox O2 Delivery O2 Flow Rate FiO2 03/09/24 09:46 111 18 110/74 03/09/24 09:00 98.1 95 98.1 03/09/24 07:30 Room Air* 0 21 Total Intake and Output 03/08/24 03/08/24 03/09/24 15:00 23:00 07:00 Intake Total 60 ml 530 ml Output Total 0 ml Balance 60 ml 530 ml medications Current Medications Medications Dose Ordered Sig/Jez Route Start Time Stop Time Status Last Admin Dose Admin Sodium Chloride 1,000 ml @ 60 mls/hr [id number] IV 03/08/24 19:30 03/08/24 20:30 60 MLS/HR Acetaminophen 650 mg Q6HP PRN PO 03/08/24 19:30 Morphine Sulfate 2 mg Q4HPRN PRN IV 03/08/24 19:30 03/09/24 09:16 2 MG Nitroglycerin 0.4 mg Q5MINP PRN SL 03/08/24 19:30 Morphine Sulfate 2 mg Q30M PRN IV 03/08/24 19:30 Pantoprazole Sodium 40 mg DAILY IV 03/09/24 10:00 03/09/24 09:15 40 MG Enoxaparin Sodium 40 mg DAILY SC 03/09/24 10:00 03/09/24 11:22 40 MG Examination Patient lying in bed, in no acute distress General: Lucid, afebrile, mucosae are moist Cardiovascular: Normal S1 and S2. No murmurs, gallops or rubs Respiratory: Normal ventilation mechanics. Clear lung sounds on auscultation Abdomen: Soft, nontender, no organomegaly, normal bowel sounds MSK/skin: Mobilizes 4 limbs, when mobilizing right lower limb presents severe pain. Skin is dry and warm. Right foot has conserved pulses and warm to touch. Neurological: Oriented in 3 spheres. No motor no sensitive deficits. Pupils are isocoric and reactive laboratory and microbiology Laboratory Tests 03/09/24 05:48 Test 03/09/24 05:48 Range/Units Serum Glucose 81 74-106 mg/dL Labs and/or images reviewed: Labs reviewed by me, Image(s) reviewed by me Problem List/Assessment/Plan Problem List/Assessment/Plan Comminuted fracture of the right ankle due to trauma from mechanical fall with no loss of consciousness Surgical intervention planned for 03/10/2024 Orthopedic consultation Waiting for cardiological clearance (pending echocardiogram) Paroxysmal Atrial fibrillation ([id number] score of 2/HAS-BLED of 2) secondary hypercoagulability state - not anticoagulated as outpatient due to high-risk of bleeding Managed with diltiazem an aspirin as outpatient Currently in hospitalization patient on therapeutic enoxaparin. Once discharged we will only continue with aspirin. EKG in this visit shows atrial fibrillation with normal ventricular response, no ST alteration. COPD, not on exacerbation Oxygen supplementation through nasal cannula Current tobacco abuse Smoking cessation counseling for 18 minutes Fall risk prevention Recommend physical therapy eval postoperatively History of bone tumor - status post resection Completed surgery at age 13 Goals of care discussed with patient for 20 minutes: Full code status Discussed plan with Dr. Delvalle, patient and nurses: Pending completion of cardiological clearance, optimizing pain therapy, evaluated by network support specialist who was planning on completing surgical intervention on 03/10/2024 Plan discussed with: Patient, Other (Nurses) My Orders My Orders Orders - JOSE PRINGLE RESIDENT Procedure Category Date Status Time * Cardiology Consult CONS 03/09/24 Transmitted 12:37 Addendum Addendum Addendum I was physically present for the vieira portions of the service provided to patient by THE RESIDENT. I have reviewed the documentation, discussed the case with resident and agree with the resident's documentation except as noted. Also the patient's clinical case was discussed with the patient's nurse. This medical document was created using an electronic medical record system with computerized dictation system. Although this document has been carefully reviewed, there might still be some phonetic and typographical errors. These areas are purely typographical due to imperfections of the software programs, and do not reflect any compromise in the patient's medical care. Late signature. Date of Service: Mar 09, 2024 Billing Provider: LITZY DELVALLE MD Common Visit Codes: 69504-[id number] INP/OBS CARE(HIGH) Secondary Visit Codes: 80783-RFKLY CHNG SMOKING >10MIN (18 minutes), 93401- ADVANCED CARE PLAN 30 MINUTES (20 minutes) JOSE PRINGLE RESIDENT Mar 09, 2024 13:11 LITZY DELVALLE MD Mar 11, 2024 04:27
--- NOTE | 2024-03-09 13:27 | DVHSR ---
APPROVED REPORT EXAM: LIMITED Two-dimensional and M-mode echocardiogram with Doppler and color Doppler. Blood Pressure: 107/63 mmHg INDICATION afib RISK FACTORS Obesity: Height: 5'6, Weight: 122 DIMENSIONS LVDd4.3 (3.8-5.7cm)LA (2D)3.4 (1.9-4.0cm)Aortic Root (2.0-3.7cm) LVDs3.7 (2.5-4.0cm)LA (MM) (1.9-4.0cm)Aortic Cusp Exc (1.5-2.0cm) EF (%) 30.0 (55-70%)Rt. Atrium (1.9-4.0cm)Asc. Aorta3.5 cm IVSd0.8 (0.7-1.1cm)RV (D) (1.8-2.4cm) PWd1.2 (0.7-1.1cm) Mitral Valve MitralMitral Stenosis E wave0.80m/sMV Mean GR.mmHg A wave0.01m/sMV Peak GR.65mmHg E/A ratio80.02D MVAcm2 DECEL [id number] 1/2 Timems Aortic Valve Aortic ValveAortic Stenosis V10.91m/Adal Mean GR.4mmHg V21.25m/Adal Peak GR.6mmHg LVOT Diameter2.0 (1.8-2.4cm)Doppler AVA2.29cm2 Pulmonic Valve V20.86m/s Tricuspid Valve TR Velocity2.73m/s [id number] Conclusion Mildly concentric left ventricular hypertrophy. Well-preserved left ventricular systolic function wi th estimated ejection fraction 55%. There is a grade diastolic 2 dysfunction. Normal right ventricular size and dimension. Normal left ventricular systolic function. Mildly elev ated right ventricular systolic [id number] mm of mercury. Moderately dilated right and left atria. Aortic valve is thickened and calcific it is functionally bicuspid aortic valve with mild aortic valv e regurgitation. The mitral valve is mildly thickened there is mild mitral valve regurgitation. There is moderate to severe tricuspid valve regurgitation. The pulmonary valve is grossly normal. No pericardial effusion.
[2024-03-09 14:46] LABS: Urine Bacteria None Seen /hpf (None Seen)
[2024-03-09 15:04] LABS: Urine Blood Negative /uL (Negative); Urine Clarity Clear (Clear); Urine Color Light-Yellow (Yellow); Urine Protein, UAD TRACE (Negative); Urine Specific Gravity 1.019 (1.001-1.035); Urine Squamous Epithelial Cell FEW /hpf (<5); Urine Urobilinogen Normal (Negative); Urine WBC 2 /hpf (0 - 5); Urine pH 6.5 (5.0-9.0)
[2024-03-09] MEDS: dilTIAZem 120MG ER CAP PO ONE (15:43)
[2024-03-09 19:44] LABS: Amphetamine Screen, Urine Neg (NEGATIVE); Barbiturate Scree,Urine Neg (NEGATIVE); Benzodiazephine Screen, Urine Pos (NEGATIVE); Cannabinoid Screen, Urine Neg (NEGATIVE); Cocaine Screen, Urine Neg (NEGATIVE); Opiate Scree,Urine Pos (NEGATIVE); Phencyclidine Screen, Urine Neg (NEGATIVE)
[2024-03-09] MEDS: ENOXAPARIN SOD 100 MG/1 ML SYRINGE SC SCH (23:30)
[2024-03-10] VITALS (8 sets, daily range): BP systolic 106–140; BP diastolic 56–76; PULSE 92–114; RESP 16–20; TEMP 97.8–99; O2SAT 90–97
[2024-03-10 06:07] LABS: Eosinophils # (auto) 0 10 ^3/uL (0-0.8); Lymphocytes # (auto) 1.2 10 ^3/uL (0.4-5.4); Mean Corpuscular Volume 96.8 fL (80.0-100.0)
[2024-03-10 06:08] LABS: Potassium 3.7 mmol/L (3.5-5.1); Sodium 145 mmol/L (136-145)
[2024-03-10 06:09] LABS: Anion Gap 7 (5-15); Calcium 8.8 mg/dL (8.7-10.4); Carbon Dioxide 25 mmol/L (20-31)
[2024-03-10 06:11] LABS: Basophils # (auto) 0 10 ^3/uL (0-0.2); Basophils % (auto) 0.8 % (0.0-2.0); Eosinophils % (auto) 0.3 % (0.0-7.0); Hematocrit 24.2 % (36.0-46.0); Hemoglobin 8.2 g/dL (12.2-16.2); Lymphocytes % (auto) 20.3 % (10.0-50.0); Mean Corpuscular Hemoglobin 32.9 pg (28.0-32.0); Monocytes # (auto) 0.5 10 ^3/uL (0-1.3); Monocytes % (auto) 8.9 % (0.0-12.0); Neutrophils % (auto) 69.7 % (37.0-80.0); Platelet Count (auto) 204 10^3/uL (140-450); Red Cell Distribution Width 14.6 % (11.8-14.3); White Blood Cell 5.8 10^3/uL (4.4-10.8)
[2024-03-10 06:14] LABS: BUN/Creatinine Ratio 23.8 (10.0-20.0); Blood Urea Nitrogen 15 mg/dL (9-23); Glucose 76 mg/dL (74-106)
[2024-03-10 06:15] LABS: Magnesium 1.8 mg/dL (1.6-2.6)
[2024-03-10 06:16] LABS: Phosphorus 3.1 mg/dL (2.4-5.1)
[2024-03-10 06:18] LABS: Chloride 113 mmol/L (98-107)
--- NOTE | 2024-03-10 07:21 | DVHINCON2 ---
Date Seen: Mar 10, 2024 Referring Physician Mark Reason for Consultation Pre-op Cardiac Assessment History of Present Illness 69-year-old female with PMH for HTN, chronic AFib not on anticoagulation therapy due to bleeding complications in the past, COPD, history of tobacco use current ly continues using vape presents to the hospital with right ankle pain s/p fall. Patient states she usually uses walker misstepped and her hand slipped for which patient fell forward landing awkwardly on her ankle. Denies any chest pain, palpitations, shortness of breath, lightheadedness, syncope, diaphoresis. Upon evaluation in the ER patient noted to have a comminuted fracture of the right ankle. Cardiology consulted for preop cardiac assessment. EKG reviewed and shows atrial fibrillation controlled rate and 95 beats per minute, no acute ST abnormality noted. Past Medical History COPD HTN Chronic atrial fibrillation not on anticoagulation therapy Past Surgical History Cardiac Cath 07/11/2018 - no obstructive CAD Family History: Patient reports no known family medical history. Family History Denies pertinent family cardiac history Social History Continues to use nicotine via V does not smoke cigarettes no for the last 4 years. Denies alcohol or illicit drug use. Allergies: Coded Allergies: Penicillins (Verified Allergy, Intermediate, 02/08/22) Home Meds Reported Medications Cyanocobalamin (B12) 1,000 Mcg Cap, 1000 MCG PO DAILY, CAP 03/09/24 Famotidine (Famotidine) 20 Mg Tab, 40 MG PO BID for 30 Days, MG 03/09/24 Cholecalciferol (D3) 2,000 Unit Tab, 2000 UNIT PO DAILY, TAB 03/09/24 Albuterol Sulfate (VENTOLIN MDI) 90 Mcg Ih, 90 MCG IN QIDP, INH 03/09/24 Ibuprofen Micronized (Ibuprofen) 800 Mg Tab, 800 MG PO TIDPRN, TAB 03/09/24 Aspirin (Aspirin) 325 Mg Tab, 325 MG PO DAILY for 30 Days, MG 03/09/24 [id number] W/Apap (Cough Syrup M) Syp 10/07/11 Aspirin (Asa) 81 Mg Ch 10/07/11 Current Medications Current Medications Medications (Trade) Dose Ordered Sig/Jez Route PRN Reason Start Time Stop Time Status Last Admin Pantoprazole Sodium (Protonix) 40 mg DAILY IV 03/09/24 10:00 03/09/24 09:15 Enoxaparin Sodium (Lovenox) 40 mg DAILY SC 03/09/24 10:00 03/09/24 18:51 DC 03/09/24 11:22 Diltiazem HCl (Cardizem ER Capsule) 120 mg DAILY PO 03/10/24 10:00 Enoxaparin Sodium (Lovenox) 60 mg Q12HR SC 03/09/24 22:00 03/09/24 23:30 Review of Systems Constitutional: No: Fever, Chills, Sweats, Weakness, Malaise, Other Eyes: No: Pain, Vision change, Conjunctivae inflammation, Eyelid inflammation, Other, Redness ENT: No: Ear pain, Ear discharge, Nose pain, Nose discharge, Nose congestion, Mouth pain, Mouth swelling, Throat pain, Throat swelling, Other Respiratory: No: Dry, Shortness of breath, SOB with exertion, Wheezing, Hemoptysis, Pleuritic Pain, Sputum, Wheezing, Other positive: Cough, Cardiovascular: ; No: Chest Pain Palpitations, Orthopnea, Paroxysmal Noc. Dyspnea, Edema, Lt Headedness, Other Gastrointestinal: No: Nausea, Vomiting, Abdominal Pain, Diarrhea, Constipation, Melena, Hematochezia, Other Genitourinary: No Dysuria, No Frequency, No Incontinence, No Hematuria, No Retention, No Other Musculoskeletal: neck pain; No: other, shoulder pain, arm pain, back pain, hand pain, positive: leg pain, foot pain Skin: No: Rash, Lesions, Jaundice, Bruising, Other Neurological: Other (Dizziness, headache.); No: Weakness, Numbness, Incoordination, Change in speech, Confusion, Seizures Vital Signs Vital Signs Date Time Temp Pulse Resp B/P (MAP) Pulse Ox O2 Delivery O2 Flow Rate FiO2 03/10/24 06:44 102 17 114/70 03/10/24 05:00 97.8 90 97.8 03/09/24 20:00 Room Air* 0 21 Physical Exam General appearance: Patient is well-developed, well-nourished, in no acute distress. HEENT: Exam shows: Normocephalic, atraumatic, PERRLA, EOMI Neck: Supple, no bruits Chest: Equal chest excursion bilaterally. Breath sounds wrong. Heart: Rhythm: Irregular rate; murmur Abdomen: Exam shows: Soft, nontender, nondistended Musculoskeletal: No clubbing, no cyanosis, no lower extremity edema Dermatology: Skin warm, moist. Neurological: Exam shows: Alert and oriented x4, normal speech Available prior records, labs, EKG, rhythm strips reviewed and interpreted Labs/Diagnostic Data Labs Test 03/10/24 05:11 03/09/24 14:20 03/09/24 05:48 03/08/24 23:06 Range/Units White Blood Count 5.8 4.4-10.8 10^3/uL Red Blood Count 2.50 L 4.0-5.20 10^6/uL Hemoglobin 8.2 L 12.2-16.2 g/dL Hematocrit 24.2 L 36.0-46.0 % Mean Corpuscular Volume 96.8 80.0-100.0 fL Mean Corpuscular Hemoglobin 32.9 H 28.0-32.0 pg Mean Corpuscular Hemoglobin Concent 34.0 32.0-36.0 g/dL Red Cell Distribution Width 14.6 H 11.8-14.3 % Platelet Count 204 140-450 10^3/uL Mean Platelet Volume 7.9 6.9-10.8 fL Neutrophils (%) (Auto) 69.7 37.0-80.0 % Lymphocytes (%) (Auto) 20.3 10.0-50.0 % Monocytes (%) (Auto) 8.9 0.0-12.0 % Eosinophils (%) (Auto) 0.3 0.0-7.0 % Basophils (%) (Auto) 0.8 0.0-2.0 % Neutrophils # (Auto) 4.0 1.6-8.6 10 ^3/uL Lymphocytes # (Auto) 1.2 0.4-5.4 10 ^3/uL Monocytes # (Auto) 0.5 0-1.3 10 ^3/uL Eosinophils # (Auto) 0 0-0.8 10 ^3/uL Basophils # (Auto) 0 0-0.2 10 ^3/uL Nucleated Red Blood Cells 0.0 % Sodium Level 145 136-145 mmol/L Potassium Level 3.7 3.5-5.1 mmol/L Chloride Level 113 H 98-107 mmol/L Carbon Dioxide Level 25 20-31 mmol/L Anion Gap 7 5-15 Blood Urea Nitrogen 15 9-23 mg/dL Creatinine 0.63 0.550-1.02 mg/dL Glomerular Filtration Rate Calc 95 >90 mL/min BUN/Creatinine Ratio 23.8 H 10.0-20.0 Serum Glucose 76 74-106 mg/dL Calcium Level 8.8 8.7-10.4 mg/dL Phosphorus Level 3.1 2.4-5.1 mg/dL Magnesium Level 1.8 1.6-2.6 mg/dL Urine Color Light-yellow Yellow Urine Clarity Clear Clear Urine pH 6.5 5.0-9.0 Urine Specific [place] 1.019 1.001-1.035 Urine Protein Trace H Negative Urine Ketones 1+ H Negative Urine Blood Negative Negative /uL Urine Nitrite Negative Negative Urine Bilirubin Negative Negative Urine Urobilinogen Normal Negative mg/dL Urine Leukocyte Esterase Negative Negative /uL Urine RBC 1 0 - 4 /hpf Urine WBC 2 0 - 5 /hpf Urine Squamous Epithelial Cells Few <5 /hpf Urine Bacteria None seen None Seen /hpf Urine Glucose Normal Normal mg/dL Urine Opiates Screen Pos NEGATIVE Urine Fentanyl Screen Pos NEGATIVE Urine Barbiturates Screen Neg NEGATIVE Urine Phencyclidine Screen Neg NEGATIVE Urine Amphetamines Screen Neg NEGATIVE Urine Benzodiazepines Screen Pos NEGATIVE Urine Cocaine Screen Neg NEGATIVE Urine Cannabinoids Screen Neg NEGATIVE Iron Level 50 50-170 ug/dL Total Iron Binding Capacity 287 250-425 ug/dL Percent Iron Saturation 17.4 15-50 % Ferritin 20.9 10-291 ng/mL Total Bilirubin 0.5 0.2-1.0 mg/dL Aspartate Amino Transferase (AST) 13 13-40 U/L Alanine Aminotransferase (ALT) 13 7-40 U/L Alkaline Phosphatase 60 46-116 U/L Total Protein 4.9 L 5.7-8.2 g/dL Albumin 3.4 3.2-4.8 g/dL Vitamin D 25-Hydroxy 32.7 30.0-100 ng/mL Free Thyroxine (T4) Calculated 0.94 0.89-1.76 ng/dL Free Triiodothyronine (T3) pg/mL 2.89 2.3-4.2 pg/mL Prothrombin Time 11.1 9.3-11.8 sec Prothrombin Time INR 1.05 0.9-1.15 Activated Partial Thromboplast Time 24.9 24.5-34.5 SEC Test 03/08/24 18:18 Range/Units Thyroid Stimulating Hormone (TSH) 5.57 H 0.55-4.78 uIU/mL Assessment * Pre-op Cardiac Assessment - Patient is requiring ankle surgery due to fracture s/p mechanical fall . ECG on admission showed atrial fibrillation, no acute ischemic changes. Denies active cardiac symptoms. Echo recently showed LV EF 55%. Patient has history of coronary angiogram 07/11/2018 which showed widely patent coronary arteries Patient is intermediate risk for this intermediate risk surgery. May proceed with surgery with close monitoring of cardiorespiratory status, avoid fluid overload. * Right ankle fracture - ortho on board, planned surgery possibly today. * Chronic atrial fibrillation - continue home dose diltiazem and added 20 mg p.o. daily. Not on anticoagulation therapy due to bleeding history per patient. * HTN - stable, continue on Cardizem. * Hypokalemia - monitoring replace electrolytes Case Discussed with Dr Cardenas. There is no further cardiac work-up indicated at this time. Patient intermediate risk for this intermediate surgery. EF 55%. May proceed. Critical care, time spent: 35 minutes This medical document was created using an electronic medical record system with voice recognition software and computerized dictation system. Although this document has been carefully reviewed, there might still be some phonetic and typographical errors. Occasional wrong-word or ``sound-alike substitutions may have occurred due to the inherent limitations of voice recognition software. These areas are purely typographical due to imperfections of the software programs and do not reflect any compromise in the patient's medical care. Please read the chart carefully and recognize, using context, where these substitutions have occurred. Plan discussed with: Patient Date of Service: Mar 10, 2024 Billing Provider: MARISELA CARDENAS MD Cardiology Common Codes: [id number] INP/OBS CARE (High), [id number] CARE 30-74 MIN HAIM SOTO AGACNP Mar 10, 2024 07:21
[2024-03-10] MEDS: dilTIAZem 120MG ER CAP PO SCH (09:38)
--- NOTE | 2024-03-10 09:44 | DVHPNRES ---
Progress Note Date Seen: Mar 10, 2024 Resident Creating Document: VIVIANA SUTTON RESIDENT Medical Necessity Reason Pt with a Central, PICC or Fol: No Subjective Review of Systems A 69-year-old female with past medical history of AFib COPD history of bone tumor and GERD to came to the hospital due to mechanical fall with trauma in right ankle and knee. No syncope, Patient use a walker at home and due to wrist pain, she couldn't handle properly the walker and she felt. Home meds: Home medication: Diltiazem, aspirin 325 mg p.o. daily, vitamin-D 2000 units daily, ibuprofen 200 mg p.r.n., Pepcid Objective vital signs Vital Sign Date Time Temp Pulse Resp B/P (MAP) Pulse Ox O2 Delivery O2 Flow Rate FiO2 03/10/24 07:30 Room Air* 0 21 03/10/24 06:44 102 17 114/70 03/10/24 05:00 97.8 90 97.8 Total Intake and Output 03/09/24 03/09/24 03/10/24 15:00 23:00 07:00 Intake Total 10 ml 500 ml 100 ml Output Total 0 ml 100 ml Balance 10 ml 500 ml 0 ml medications Current Medications Medications Dose Ordered Sig/Jez Route Start Time Stop Time Status Last Admin Dose Admin Sodium Chloride 1,000 ml @ 60 mls/hr [id number] IV 03/08/24 19:30 03/09/24 16:03 60 MLS/HR Acetaminophen 650 mg Q6HP PRN PO 03/08/24 19:30 Morphine Sulfate 2 mg Q4HPRN PRN IV 03/08/24 19:30 03/10/24 06:14 2 MG Nitroglycerin 0.4 mg Q5MINP PRN SL 03/08/24 19:30 Morphine Sulfate 2 mg Q30M PRN IV 03/08/24 19:30 Pantoprazole Sodium 40 mg DAILY IV 03/09/24 10:00 03/09/24 09:15 40 MG Diltiazem HCl 120 mg DAILY PO 03/10/24 10:00 Enoxaparin Sodium 60 mg Q12HR SC 03/09/24 22:00 03/09/24 23:30 60 MG Examination GEN: Healthy appearing, well-developed, NAD. PSYCH: Good Judgment. AOx3. Normal memory, mood, and affect. HEENT -Head: normocephalic atraumatic, no facial trauma, neck is supple -Eyes: PERRL, EOMI. No discharge or redness; -Ears: External ears are normal. Normal TMs. -Nose: Normal nares. -Mouth and throat: MMM. Normal gums, mucosa, palate,. Good dentition. NECK: Supple, with no masses. CV: RRR, no m/r/g. LUNGS: respiratory effort normal, speaks in full sentences, no tripod position, no accessory muscle use. Lungs clear to auscultation without rhonchi, wheezes, rales ABD: Soft, ND/NT. No evidence of fluid wave. No pulsatile masses on exam, rebound tenderness, Nichols sign or pain over Mcburney's point. : N/A SKIN: Warm, well perfused. No skin rashes or abnormal lesions. MSK/skin: Mobilizes 4 limbs, when mobilizing right lower limb presents severe pain. Skin is dry and warm. Right foot has conserved pulses in is warm to touch. EXT: No clubbing, cyanosis, or edema. NEURO: Ambulating with no limitations. Normal muscle strength and tone. No focal deficits laboratory and microbiology Laboratory Tests 03/10/24 05:11 Test 03/10/24 05:11 Range/Units Serum Glucose 76 74-106 mg/dL Labs and/or images reviewed: Labs reviewed by me, Image(s) reviewed by me Problem List/Assessment/Plan Problem List/Assessment/Plan #Comminuted fracture of the right ankle due to trauma from mechanical fall #Syncope ruled out #Paroxysmal Atrial fibrillation ([id number] score of 2/HAS-BLED of 2) #COPD, not on exacerbation #Current tobacco abuse #Subclinical hypothyroidism #History of bone tumor - status post resection Images: ECHO: Mildly concentric left ventricular hypertrophy. Well-preserved left ventricular systolic function with estimated ejection fraction 55%. There is a grade diastolic 2 dysfunction. Normal right ventricular size and dimension. Normal left ventricular systolic function. Mildly elevated right ventricular systolic [id number] mm of mercury. Moderately dilated right and left atria. Aortic valve is thickened and calcific it is functionally bicuspid aortic valve with mild aortic valve regurgitation. The mitral valve is mildly thickened there is mild mitral valve regurgitation. There is moderate to severe tricuspid valve regurgitation. The pulmonary valve is grossly normal. No pericardial effusion. Chest CT scan: 1. No mediastinal mass is seen. 2. Vague ground-glass densities seen in the right middle lobe may reflect mild atypical pneumonia. Recommend follow-up noncontrast chest CT in 3 months to evaluate for stability. 3. Moderate to severe centrilobular emphysema. Ankle CT scan: Distal tibial and fibular fractures status post casting. Diffuse soft tissue swelling noted. Plan: Cardiac diet today NPO at midnight Open reduction internal fixation of right distal tibia/ fibula fracture, tomorrow Cardiology already gave clearance Hold on Aspirin due to surgery Keep diltiazem due to HR above 100s: due to pain [place] and Morphine for pain Keep maintenance fluid: 60cc/h Protonix Hold on enoxaparin today due to surgery tomorrow Case discussed Dr Delvalle Plan discussed with: Patient, Other (rn) Addendum Addendum Addendum I was physically present for the vieira portions of the service provided to patient by THE RESIDENT. I have reviewed the documentation, discussed the case with resident and agree with the resident's documentation except as noted. Also the patient's clinical case was discussed with the patient's nurse. This medical document was created using an electronic medical record system with computerized dictation system. Although this document has been carefully reviewed, there might still be some phonetic and typographical errors. These areas are purely typographical due to imperfections of the software programs, and do not reflect any compromise in the patient's medical care. Late signature. Date of Service: Mar 10, 2024 Billing Provider: LITZY DELVALLE MD Common Visit Codes: [id number] INP/OBS CARE(HIGH) VIVIANA SUTTON RESIDENT Mar 10, 2024 09:43 LITZY DELVALLE MD Mar 11, 2024 04:29
[2024-03-10] MEDS: HYDROcodone-ACET 10/325MG TAB PO PRN (10:31)
[2024-03-11] VITALS (9 sets, daily range): BP systolic 119–144; BP diastolic 56–77; PULSE 96–124; RESP 16–20; TEMP 97.4–98.6; O2SAT 91–100
--- NOTE | 2024-03-11 06:54 | DVH ---
CLINICAL INDICATION: Right wrist pain TECHNIQUE: XY R WRIST 3+ VIEW XRAY Comparison: XY R ANKLE 2 VIEW XRAY on DOS: 03/08/24, XY R ANKLE 2 VIEW XRAY on DOS: 03/08/24 FINDINGS/IMPRESSION: : Limited examination secondary to osteopenia and overlying artifact. Subtle cortical lucencies are present associated with the proximal pole of the scaphoid possibly repr esenting a nondisplaced fracture versus artifact. Recommend correlation with point tenderness.
[2024-03-11 07:02] LABS: Alanine Aminotransferase 15 U/L (7-40); Albumin 3.2 g/dL (3.2-4.8); Alkaline Phosphatase 65 U/L (46-116); Anion Gap 5 (5-15); Aspartate Aminotransferase 24 U/L (13-40); BUN/Creatinine Ratio 24.7 (10.0-20.0); Bilirubin, Total 0.7 mg/dL (0.2-1.0); Blood Urea Nitrogen 18 mg/dL (9-23); Calcium 8.8 mg/dL (8.7-10.4); Carbon Dioxide 26 mmol/L (20-31); Glucose 80 mg/dL (74-106); Potassium 3.8 mmol/L (3.5-5.1); Sodium 145 mmol/L (136-145)
[2024-03-11 07:04] LABS: Chloride 114 mmol/L (98-107); Total Protein 4.9 g/dL (5.7-8.2)
[2024-03-11 07:05] LABS: Basophils # (auto) 0 10 ^3/uL (0-0.2); Hematocrit 22.1 % (36.0-46.0); Mean Corpuscular Hgb Conc. 33.7 g/dL (32.0-36.0); Neutrophils # (auto) 3.7 10 ^3/uL (1.6-8.6); Nucleated Red Blood Cells % 0.1 %
[2024-03-11 07:07] LABS: Basophils % (auto) 0.8 % (0.0-2.0); Eosinophils # (auto) 0 10 ^3/uL (0-0.8); Eosinophils % (auto) 0.8 % (0.0-7.0); Hemoglobin 7.5 g/dL (12.2-16.2); Lymphocytes # (auto) 1.1 10 ^3/uL (0.4-5.4); Lymphocytes % (auto) 20.8 % (10.0-50.0); Mean Corpuscular Hemoglobin 32.9 pg (28.0-32.0); Mean Corpuscular Volume 97.8 fL (80.0-100.0); Monocytes # (auto) 0.5 10 ^3/uL (0-1.3); Monocytes % (auto) 9.7 % (0.0-12.0); Neutrophils % (auto) 67.9 % (37.0-80.0); Platelet Count (auto) 199 10^3/uL (140-450); Red Blood Cells 2.26 10^6/uL (4.0-5.20); Red Cell Distribution Width 14.2 % (11.8-14.3); White Blood Cell 5.4 10^3/uL (4.4-10.8)
[2024-03-11] MEDS: BUPIVACAINE HCL 50 ML ONE (09:30)
[2024-03-11] MEDS: TETRACAINE 1% INJ 2 ML VIAL IJ ONE (09:57)
[2024-03-11] MEDS ORDERED: MIDAZOLAM HCL 2MG/2ML 2ml VIAL (1mg/ml) ONE (10:04)
[2024-03-11] MEDS ORDERED: fentaNYL CITRATE 100 MCG/2 ML VL ONE (10:04)
[2024-03-11] MEDS ORDERED: KETAMINE 50mg/ML 10ml Vial 10 ML ONE (10:05)
--- NOTE | 2024-03-11 10:10 | DVHPNRES ---
Progress Note Date Seen: Mar 11, 2024 Resident Creating Document: VIVIANA SUTTON RESIDENT Medical Necessity Reason Pt with a Central, PICC or Fol: No Subjective Review of Systems A 69-year-old female with past medical history of AFib COPD history of bone tumor and GERD to came to the hospital due to mechanical fall with trauma in right ankle and knee. No syncope, Patient use a walker at home and due to wrist pain, she couldn't handle properly the walker and she felt. Home meds: Home medication: Diltiazem, aspirin 325 mg p.o. daily, vitamin-D 2000 units daily, ibuprofen 200 mg p.r.n., Pepcid Objective vital signs Vital Sign Date Time Temp Pulse Resp B/P (MAP) Pulse Ox O2 Delivery O2 Flow Rate FiO2 03/11/24 09:00 97.4 111 20 144/63 (90) 91 97.4 03/11/24 07:40 Room Air* 0 21 Total Intake and Output 03/10/24 03/10/24 03/11/24 15:00 23:00 07:00 Intake Total 436 ml 1045 ml Balance 436 ml 1045 ml medications Current Medications Medications Dose Ordered Sig/Jez Route Start Time Stop Time Status Last Admin Dose Admin Sodium Chloride 1,000 ml @ 60 mls/hr [id number] IV 03/08/24 19:30 03/10/24 21:44 60 MLS/HR Acetaminophen 650 mg Q6HP PRN PO 03/08/24 19:30 Cancel Morphine Sulfate 2 mg Q4HPRN PRN IV 03/08/24 19:30 03/10/24 06:14 2 MG Pantoprazole Sodium 40 mg DAILY IV 03/09/24 10:00 03/10/24 09:35 40 MG Diltiazem HCl 120 mg DAILY PO 03/10/24 10:00 03/10/24 09:38 120 MG Enoxaparin Sodium 60 mg Q12HR SC 03/09/24 22:00 Hold 03/09/24 23:30 60 MG Acetaminophen/ Hydrocodone Bitart 1 tab Q6HP PRN PO 03/10/24 09:30 03/11/24 03:55 1 TAB Examination GEN: Healthy appearing, well-developed, NAD. PSYCH: Good Judgment. AOx3. Normal memory, mood, and affect. HEENT -Head: normocephalic atraumatic, no facial trauma, neck is supple -Eyes: PERRL, EOMI. No discharge or redness; -Ears: External ears are normal. Normal TMs. -Nose: Normal nares. -Mouth and throat: MMM. Normal gums, mucosa, palate,. Good dentition. NECK: Supple, with no masses. CV: RRR, no m/r/g. LUNGS: respiratory effort normal, speaks in full sentences, no tripod position, no accessory muscle use. Lungs clear to auscultation without rhonchi, wheezes, rales ABD: Soft, ND/NT. No evidence of fluid wave. No pulsatile masses on exam, rebound tenderness, Nichols sign or pain over Mcburney's point. : N/A SKIN: Warm, well perfused. No skin rashes or abnormal lesions. MSK/skin: Mobilizes 4 limbs, when mobilizing right lower limb presents severe pain. Skin is dry and warm. Right foot has conserved pulses in is warm to touch. Pain in the right wrist EXT: No clubbing, cyanosis, or edema. NEURO: Ambulating with no limitations. Normal muscle strength and tone. No focal deficits laboratory and microbiology Laboratory Tests 03/11/24 05:34 Test 03/11/24 05:34 Range/Units Serum Glucose 80 74-106 mg/dL Problem List/Assessment/Plan Problem List/Assessment/Plan #Comminuted fracture of the right ankle due to trauma from mechanical fall #Possible right schaphoid nondisplaced fracture #Syncope ruled out #Paroxysmal Atrial fibrillation (chads Vasc 2/has bled 2) with RVR at admission now normal #secondary hypercoagulability state #COPD, not on exacerbation #Current tobacco abuse #Subclinical hypothyroidism #History of bone tumor - status post resection Images: ECHO: Mildly concentric left ventricular hypertrophy. Well-preserved left ventricular systolic function with estimated ejection fraction 55%. There is a grade diastolic 2 dysfunction. Normal right ventricular size and dimension. Normal left ventricular systolic function. Mildly elevated right ventricular systolic [id number] mm of mercury. Moderately dilated right and left atria. Aortic valve is thickened and calcific it is functionally bicuspid aortic valve with mild aortic valve regurgitation. The mitral valve is mildly thickened there is mild mitral valve regurgitation. There is moderate to severe tricuspid valve regurgitation. The pulmonary valve is grossly normal. No pericardial effusion. Chest CT scan: 1. No mediastinal mass is seen. 2. Vague ground-glass densities seen in the right middle lobe may reflect mild atypical pneumonia. Recommend follow-up noncontrast chest CT in 3 months to evaluate for stability. 3. Moderate to severe centrilobular emphysema. Ankle CT scan: Distal tibial and fibular fractures status post casting. Diffuse soft tissue swelling noted. Plan: NPO Open reduction internal fixation of right distal tibia/ fibula fracture, today morning, also findings in the wrist xray were communicated to Dr Mora Cardiology already gave clearance Hold on Aspirin due to surgery Keep diltiazem due to HR above 100s: due to pain [place] and Morphine for pain Keep maintenance fluid: 60cc/h Protonix Hold on enoxaparin today Case discussed Dr Guzmán Time spent on care 23 min Plan discussed with: Patient, Other (rn) Date of Service: Mar 11, 2024 Billing Provider: BAY GUZMÁN MD Common Visit Codes: [id number] INP/OBS CARE(HIGH) VIVIANA SUTTON RESIDENT Mar 11, 2024 10:10 BAY GUZMÁN MD Mar 11, 2024 19:50
[2024-03-11] MEDS: ceFAZolin 2 GM/D5W100ml 100 ML IV ONE (10:20)
--- NOTE | 2024-03-11 10:22 | DVHHP2 ---
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
[2024-03-11] MEDS ORDERED: PROPOFOL 10 MG/ML 20 ML IV ONE (11:21)
[2024-03-11] MEDS ORDERED: ONDANSETRON HCL 4 MG/2 ML VIAL ONE (12:24)
[2024-03-11] MEDS: ROPIVACAINE 0.5% (5MG/ML) 20ML AMPULE IJ ONE (12:35)
--- NOTE | 2024-03-11 12:40 | DVHOP2 ---
Operative Report - 2 Report Details Date: 03/11/24 Preop Diagnosis: Right distal tib fib fracture Postop Diagnosis: same Surgeon: Poli Odom MD Rn Eligibility: none Anesthesiologist: Dr Raza Anesthesia: Regional Drains: none Implant: recon fitting plates, tibia-anterolateral, fibula - lateral Consent: The patient was informed of the risks and benefits of the procedure. These include but are not limited to complications of anesthesia, postoperative infection, incomplete relief of symptoms, recurrence of symptoms, damage to blood vessels, nerves and tendons, deep venous thrombosis, pulmonary embolism and possible need for repeat surgery in the future. Complications: none Estimated Blood Loss: 50cc Findings: very poor bone quality, comminuted fracture of distal tibia, fibula Indications for Surgery: unstable fracture with expected non-union, malunion without fixation , subsequent bedrest and compications associated with bedrest Name of Procedure Performed Open reduction internal fixation of right distgal tiba, fibula fracture Procedure Details Procedure Details: patient brought into the OR, received ancef 1g and TXA 1 g IVPV pre-opeatively. Spinal anetshtesia Dr Raza, no complicatons, non sterile tourniquet right thigh, sterile prep and drape right LE. TIme out performed, confirmation right side correct and ORIF of distal tib/fib correct porcedurew after review operative constent , H and P, my initials on right lower leg. compression with esmarch, tourniquet elevated to 250 mm Hg, total time, 40 min, lateral incision 15 cm, deep to fascia, fascia divided subperiosteal elevation of fibula, placement of recon plate laterally, screws proximal and distal to the comminuted fracture. The tibia was fixed by making an anterior incision, limited to 5 cm length to decrease risk of skin necrosis, incision to deep fascia, deep fascia divided, blunt dissection of deep peroneal artery and nerve medially with EHL, and EDC retracted laterally. subperosteal elevation of anterior distal tibia and anterolateral porximal tibia, then a pre-contoured anterolateral plate placed subcutaneously. C arm Fluoro showed good alignment of fracture and plate. Plate fixed with 6 distal cancellous screws and proximally with 5 bicortical screws, locking. tourniquet let down after c arm showed good alignment of fracture and plate , excellent hemostasis noted. EBL 50cc, irrigation, placement of demineralized bone graft at both tibia and fibula fractures. closure with 2.0 vicryl subvcutaneous, skin with yash. dry dressing , walker boot, strict non-wt bearing 6-8 weeks. Specimen: none Condition Stable Disposition Still a Patient POLI ODOM MD Mar 11, 2024 12:40
[2024-03-11] MEDS: ONDANSETRON HCL 4 MG/2 ML VIAL IV ONE (12:45)
--- NOTE | 2024-03-11 12:49 | DVH ---
C-ARM FLUOROSCOPY: PROCEDURE: ORIF right ankle FLUOROSCOPY TIME: 17.5 sec
--- NOTE | 2024-03-11 12:49 | DVH ---
C-ARM FLUOROSCOPY: PROCEDURE: ORIF right ankle FLUOROSCOPY TIME: 17.5 sec
[2024-03-11 13:01] LABS: % Iron Saturation 7.1 % (15-50)
[2024-03-11] MEDS: ceFAZolin 1GM/50ML 50 ML IV SCH (14:24)
[2024-03-11] MEDS ORDERED: ESMOLOL HCL (10MG/ML) 10 ML VIAL IV ONE (16:02)
[2024-03-11] MEDS: D5W/SOD CHL 0.45%/KCL 20MEQ 1,000 ML IV SCH (16:23)
[2024-03-12] VITALS (11 sets, daily range): BP systolic 101–147; BP diastolic 57–82; PULSE 63–128; RESP 17–20; TEMP 97.8–99.3; O2SAT 90–97
[2024-03-12 05:51] LABS: Basophils # (auto) 0 10 ^3/uL (0-0.2); Eosinophils # (auto) 0 10 ^3/uL (0-0.8); Monocytes # (auto) 0.9 10 ^3/uL (0-1.3); Neutrophils # (auto) 6.8 10 ^3/uL (1.6-8.6); White Blood Cell 8.7 10^3/uL (4.4-10.8)
[2024-03-12 05:52] LABS: Basophils % (auto) 0.2 % (0.0-2.0); Eosinophils % (auto) 0.2 % (0.0-7.0); Hematocrit 20.6 % (36.0-46.0); Lymphocytes % (auto) 11.7 % (10.0-50.0); Mean Corpuscular Hemoglobin 32.8 pg (28.0-32.0); Mean Corpuscular Hgb Conc. 33.8 g/dL (32.0-36.0); Mean Corpuscular Volume 97.1 fL (80.0-100.0); Monocytes % (auto) 10.1 % (0.0-12.0); Neutrophils % (auto) 77.8 % (37.0-80.0); Platelet Count (auto) 212 10^3/uL (140-450); Red Blood Cells 2.12 10^6/uL (4.0-5.20); Red Cell Distribution Width 14.3 % (11.8-14.3)
[2024-03-12 06:09] LABS: Alanine Aminotransferase 13 U/L (7-40); Alkaline Phosphatase 63 U/L (46-116); Anion Gap 3 (5-15); Aspartate Aminotransferase 32 U/L (13-40); BUN/Creatinine Ratio 22.2 (10.0-20.0); Blood Urea Nitrogen 14 mg/dL (9-23); Carbon Dioxide 26 mmol/L (20-31); Potassium 3.8 mmol/L (3.5-5.1); Sodium 140 mmol/L (136-145)
[2024-03-12 06:10] LABS: Bilirubin, Total 0.5 mg/dL (0.2-1.0)
[2024-03-12 06:16] LABS: Calcium 8.4 mg/dL (8.7-10.4); Chloride 111 mmol/L (98-107); Glucose 108 mg/dL (74-106); Total Protein 4.4 g/dL (5.7-8.2)
[2024-03-12] MEDS: IRON SUCROSE COMPLEX 110 ML IV SCH (11:36)
--- NOTE | 2024-03-12 13:16 | DVHPNRES ---
Progress Note Date Seen: Mar 12, 2024 Resident Creating Document: VIVIANA SUTTON RESIDENT Medical Necessity Reason Pt with a Central, PICC or Fol: No Subjective Review of Systems A 69-year-old female with past medical history of AFib COPD history of bone tumor and GERD to came to the hospital due to mechanical fall with trauma in right ankle and knee. No syncope, Patient use a walker at home and due to wrist pain, she couldn't handle properly the walker and she felt. Home meds: Home medication: Diltiazem, aspirin 325 mg p.o. daily, vitamin-D 2000 units daily, ibuprofen 200 mg p.r.n., Pepcid Objective vital signs Vital Sign Date Time Temp Pulse Resp B/P (MAP) Pulse Ox O2 Delivery O2 Flow Rate FiO2 03/12/24 09:20 108 18 116/57 03/12/24 09:11 98.4 97 98.4 03/11/24 20:00 Room Air* 0 21 Total Intake and Output 03/11/24 03/11/24 03/12/24 15:00 23:00 07:00 Intake Total 200 ml 350 ml 400 ml Output Total 200 ml Balance 200 ml 150 ml 400 ml medications Current Medications Medications Dose Ordered Sig/Jez Route Start Time Stop Time Status Last Admin Dose Admin Acetaminophen 650 mg Q6HP PRN PO 03/08/24 19:30 Cancel Morphine Sulfate 2 mg Q4HPRN PRN IV 03/08/24 19:30 03/12/24 09:20 2 MG Pantoprazole Sodium 40 mg DAILY IV 03/09/24 10:00 03/12/24 09:11 40 MG Diltiazem HCl 120 mg DAILY PO 03/10/24 10:00 03/12/24 09:09 120 MG Enoxaparin Sodium 60 mg Q12HR SC 03/09/24 22:00 Hold 03/09/24 23:30 60 MG Acetaminophen/ Hydrocodone Bitart 1 tab Q6HP PRN PO 03/10/24 09:30 03/11/24 23:39 1 TAB Potassium Chloride/Dextrose/ Sod Cl 1,000 ml @ 150 mls/hr Q6H40M IV 03/11/24 12:45 03/12/24 02:05 150 MLS/HR Iron Sucrose 110 ml @ 110 mls/hr DAILY@1200 IV 03/12/24 12:00 03/16/24 12:59 03/12/24 11:36 110 MLS/HR Examination GEN: Healthy appearing, well-developed, NAD. PSYCH: Good Judgment. AOx3. Normal memory, mood, and affect. HEENT -Head: normocephalic atraumatic, no facial trauma, neck is supple -Eyes: PERRL, EOMI. No discharge or redness; -Ears: External ears are normal. Normal TMs. -Nose: Normal nares. -Mouth and throat: MMM. Normal gums, mucosa, palate,. Good dentition. NECK: Supple, with no masses. CV: RRR, no m/r/g. LUNGS: respiratory effort normal, speaks in full sentences, no tripod position, no accessory muscle use. Lungs clear to auscultation without rhonchi, wheezes, rales ABD: Soft, ND/NT. No evidence of fluid wave. No pulsatile masses on exam, rebound tenderness, Nichols sign or pain over Mcburney's point. : N/A SKIN: Warm, well perfused. No skin rashes or abnormal lesions. MSK/skin: Mobilizes 4 limbs, when mobilizing right lower limb presents severe pain. Skin is dry and warm. Right foot has conserved pulses in is warm to touch. Pain in the right wrist EXT: No clubbing, cyanosis, or edema. NEURO: Ambulating with no limitations. Normal muscle strength and tone. No focal deficits laboratory and microbiology Laboratory Tests 03/12/24 04:53 Test 03/12/24 04:53 Range/Units Serum Glucose 108 H 74-106 mg/dL Problem List/Assessment/Plan Problem List/Assessment/Plan #s/p Open reduction internal fixation of right distal tiba, fibula fracture #Comminuted fracture of the right ankle due to trauma from mechanical fall #Possible right schaphoid nondisplaced fracture- conservative mamagment #Syncope ruled out #Paroxysmal Atrial fibrillation (chads Vasc 2/has bled 2) with RVR at admission now normal #secondary hypercoagulability state #COPD, not on exacerbation #Current tobacco abuse #Subclinical hypothyroidism #History of bone tumor - status post resection #ferropeninc severe anemia Images: ECHO: Mildly concentric left ventricular hypertrophy. Well-preserved left ventricular systolic function with estimated ejection fraction 55%. There is a grade diastolic 2 dysfunction. Normal right ventricular size and dimension. Normal left ventricular systolic function. Mildly elevated right ventricular systolic [id number] mm of mercury. Moderately dilated right and left atria. Aortic valve is thickened and calcific it is functionally bicuspid aortic valve with mild aortic valve regurgitation. The mitral valve is mildly thickened there is mild mitral valve regurgitation. There is moderate to severe tricuspid valve regurgitation. The pulmonary valve is grossly normal. No pericardial effusion. Chest CT scan: 1. No mediastinal mass is seen. 2. Vague ground-glass densities seen in the right middle lobe may reflect mild atypical pneumonia. Recommend follow-up noncontrast chest CT in 3 months to evaluate for stability. 3. Moderate to severe centrilobular emphysema. Ankle CT scan: Distal tibial and fibular fractures status post casting. Diffuse soft tissue swelling noted. wrist xray Subtle cortical lucencies are present associated with the proximal pole of the scaphoid possibly representing a nondisplaced fracture versus artifact. Recommend correlation with point tenderness. Plan: 1RBC transfusion Iron infusion Open reduction internal fixation of right distal tibia/ fibula fracture, yesterday no complications Cardiology already gave clearance Hold on Aspirin due to surgery and anemia Keep diltiazem due to HR above 100s: due to pain [place] and Morphine for pain Keep maintenance fluid: 60cc/h Protonix Hold on enoxaparin today due to anemia Case discussed Dr Guzmán Time spent on care 23 min Plan discussed with: Patient, Other (rn) My Orders My Orders Orders - VIVIANA SUTTON Procedure Category Date Status Time Iron Sucrose Complex PHA 03/12/24 In Process (Venofer) 12:00 Type And Screen BBK 03/12/24 In Process 06:40 Pulse Ox Cont Per Day RT 03/12/24 Logged 06:40 Vital Signs OMAR 03/12/24 In Process 06:40 Administer Blood OMAR 03/12/24 In Process Products 06:40 * Liability Analyst CONS 03/12/24 Transmitted Consult Date of Service: Mar 12, 2024 Billing Provider: BAY GUZMÁN MD Common Visit Codes: [id number] INP/OBS CARE(HIGH) VIVIANA SUTTON RESIDENT Mar 12, 2024 13:16 BAY GUZMÁN MD Mar 13, 2024 17:51
--- NOTE | 2024-03-12 13:43 | DVHPN2 ---
Date of Progress Note Date of Progress Note Date of Progress Note: 03/12/24 Date of Admission Date of Admission Date of Admission: Date of Admission: Mar 08, 2024 at 19:28 Overnight Events Overnight events Overnight Events Pt with lorrie alexander pain on POs, lorrie reg diet Family History Family History Family History: Patient reports no known family medical history. Allergies: Coded Allergies: Penicillins (Verified Allergy, Intermediate, 02/08/22) Home Meds Reported Medications Cyanocobalamin (B12) 1,000 Mcg Cap, 1000 MCG PO DAILY, CAP 03/09/24 Famotidine (Famotidine) 20 Mg Tab, 40 MG PO BID for 30 Days, MG 03/09/24 Cholecalciferol (D3) 2,000 Unit Tab, 2000 UNIT PO DAILY, TAB 03/09/24 Albuterol Sulfate (VENTOLIN MDI) 90 Mcg Ih, 90 MCG IN QIDP, INH 03/09/24 Ibuprofen Micronized (Ibuprofen) 800 Mg Tab, 800 MG PO TIDPRN, TAB 03/09/24 Aspirin (Aspirin) 325 Mg Tab, 325 MG PO DAILY for 30 Days, MG 03/09/24 [id number] W/Apap (Cough Syrup M) Syp 10/07/11 Aspirin (Asa) 81 Mg Ch 10/07/11 Current Medications Current Medications Medications (Trade) Dose Ordered Sig/Jez Route PRN Reason Start Time Stop Time Status Last Admin Cefazolin Sodium 50 ml @ 50 mls/hr Q8HR IV 03/11/24 14:00 03/11/24 22:59 DC 03/11/24 22:09 Iron Sucrose 110 ml @ 110 mls/hr DAILY@1200 IV 03/12/24 12:00 03/16/24 12:59 03/12/24 11:36 Physical Examination General Examination: Last Vital sign Vital Signs Date Time Temp Pulse Resp B/P (MAP) Pulse Ox O2 Delivery O2 Flow Rate FiO2 03/12/24 09:20 108 18 116/57 03/12/24 09:11 98.4 97 98.4 03/11/24 20:00 Room Air* 0 21 General: General: No apparent distress, appears comfortable. Cooperative. Extremities: Right LE, in walker boot, toes warm, good capp refill Neurological Examination: Neurological Examination: Mental Status: Cranial Nerves: Motor Examination: Reflexes: Sensory: Coordination: Gait: Labs: Labs: Laboratory Tests Test 03/08/24 18:18 03/08/24 23:06 03/09/24 05:48 03/09/24 14:20 Range/Units White Blood Count 5.4 5.4 4.4-10.8 10^3/uL Red Blood Count 3.23 L 2.58 L 4.0-5.20 10^6/uL Hemoglobin 10.4 L 8.4 #L 12.2-16.2 g/dL Hematocrit 31.0 L 24.8 #L 36.0-46.0 % Mean Corpuscular Volume 96.0 96.2 80.0-100.0 fL Mean Corpuscular Hemoglobin 32.1 H 32.6 H 28.0-32.0 pg Mean Corpuscular Hemoglobin Concent 33.4 33.8 32.0-36.0 g/dL Red Cell Distribution Width 14.4 H 14.3 11.8-14.3 % Platelet Count 243 200 140-450 10^3/uL Mean Platelet Volume 7.8 8.0 6.9-10.8 fL Neutrophils (%) (Auto) 71.9 69.2 37.0-80.0 % Lymphocytes (%) (Auto) 20.1 21.3 10.0-50.0 % Monocytes (%) (Auto) 6.5 8.5 0.0-12.0 % Eosinophils (%) (Auto) 0.5 0.4 0.0-7.0 % Basophils (%) (Auto) 1.0 0.6 0.0-2.0 % Neutrophils # (Auto) 3.8 3.8 1.6-8.6 10 ^3/uL Lymphocytes # (Auto) 1.1 1.2 0.4-5.4 10 ^3/uL Monocytes # (Auto) 0.3 0.5 0-1.3 10 ^3/uL Eosinophils # (Auto) 0 0 0-0.8 10 ^3/uL Basophils # (Auto) 0.1 0 0-0.2 10 ^3/uL Nucleated Red Blood Cells 0.0 0.1 % Prothrombin Time 10.9 11.1 9.3-11.8 sec Prothrombin Time INR 1.03 1.05 0.9-1.15 Sodium Level 146 H 146 H 136-145 mmol/L Potassium Level 3.3 L 3.8 3.5-5.1 mmol/L Chloride Level 113 H 115 H 98-107 mmol/L Carbon Dioxide Level 25 26 20-31 mmol/L Anion Gap 8 5 5-15 Blood Urea Nitrogen 19 16 9-23 mg/dL Creatinine 1.02 0.78 0.550-1.02 mg/dL Glomerular Filtration Rate Calc 59 82 >90 mL/min BUN/Creatinine Ratio 18.6 20.5 H 10.0-20.0 Serum Glucose 141 H 81 74-106 mg/dL Calcium Level 9.4 8.8 8.7-10.4 mg/dL Total Bilirubin 0.3 0.5 0.2-1.0 mg/dL Aspartate Amino Transferase (AST) 12 L 13 13-40 U/L Alanine Aminotransferase (ALT) 14 13 7-40 U/L Alkaline Phosphatase 69 60 46-116 U/L Total Protein 5.5 L 4.9 L 5.7-8.2 g/dL Albumin 3.8 3.4 3.2-4.8 g/dL Thyroid Stimulating Hormone (TSH) 5.57 H 0.55-4.78 uIU/mL Activated Partial Thromboplast Time 24.9 24.5-34.5 SEC Iron Level 50 50-170 ug/dL Total Iron Binding Capacity 287 250-425 ug/dL Percent Iron Saturation 17.4 15-50 % Ferritin 20.9 10-291 ng/mL Vitamin D 25-Hydroxy 32.7 30.0-100 ng/mL Free Thyroxine (T4) Calculated 0.94 0.89-1.76 ng/dL Free Triiodothyronine (T3) pg/mL 2.89 2.3-4.2 pg/mL Urine Color Light-yellow Yellow Urine Clarity Clear Clear Urine pH 6.5 5.0-9.0 Urine Specific [place] 1.019 1.001-1.035 Urine Protein Trace H Negative Urine Ketones 1+ H Negative Urine Blood Negative Negative /uL Urine Nitrite Negative Negative Urine Bilirubin Negative Negative Urine Urobilinogen Normal Negative mg/dL Urine Leukocyte Esterase Negative Negative /uL Urine RBC 1 0 - 4 /hpf Urine WBC 2 0 - 5 /hpf Urine Squamous Epithelial Cells Few <5 /hpf Urine Bacteria None seen None Seen /hpf Urine Glucose Normal Normal mg/dL Urine Opiates Screen Pos NEGATIVE Urine Fentanyl Screen Pos NEGATIVE Urine Barbiturates Screen Neg NEGATIVE Urine Phencyclidine Screen Neg NEGATIVE Urine Amphetamines Screen Neg NEGATIVE Urine Benzodiazepines Screen Pos NEGATIVE Urine Cocaine Screen Neg NEGATIVE Urine Cannabinoids Screen Neg NEGATIVE Test 03/10/24 05:11 03/11/24 05:34 03/12/24 04:53 Range/Units White Blood Count 5.8 5.4 8.7 # 4.4-10.8 10^3/uL Red Blood Count 2.50 L 2.26 L 2.12 L 4.0-5.20 10^6/uL Hemoglobin 8.2 L 7.5 L 7.0 *L 12.2-16.2 g/dL Hematocrit 24.2 L 22.1 L 20.6 L 36.0-46.0 % Mean Corpuscular Volume 96.8 97.8 97.1 80.0-100.0 fL Mean Corpuscular Hemoglobin 32.9 H 32.9 H 32.8 H 28.0-32.0 pg Mean Corpuscular Hemoglobin Concent 34.0 33.7 33.8 32.0-36.0 g/dL Red Cell Distribution Width 14.6 H 14.2 14.3 11.8-14.3 % Platelet Count 204 199 212 140-450 10^3/uL Mean Platelet Volume 7.9 8.0 7.6 6.9-10.8 fL Neutrophils (%) (Auto) 69.7 67.9 77.8 37.0-80.0 % Lymphocytes (%) (Auto) 20.3 20.8 11.7 10.0-50.0 % Monocytes (%) (Auto) 8.9 9.7 10.1 0.0-12.0 % Eosinophils (%) (Auto) 0.3 0.8 0.2 0.0-7.0 % Basophils (%) (Auto) 0.8 0.8 0.2 0.0-2.0 % Neutrophils # (Auto) 4.0 3.7 6.8 1.6-8.6 10 ^3/uL Lymphocytes # (Auto) 1.2 1.1 1.0 0.4-5.4 10 ^3/uL Monocytes # (Auto) 0.5 0.5 0.9 0-1.3 10 ^3/uL Eosinophils # (Auto) 0 0 0 0-0.8 10 ^3/uL Basophils # (Auto) 0 0 0 0-0.2 10 ^3/uL Nucleated Red Blood Cells 0.0 0.1 0.0 % Sodium Level 145 145 140 # 136-145 mmol/L Potassium Level 3.7 3.8 3.8 3.5-5.1 mmol/L Chloride Level 113 H 114 H 111 H 98-107 mmol/L Carbon Dioxide Level 25 26 26 20-31 mmol/L Anion Gap 7 5 3 L 5-15 Blood Urea Nitrogen 15 18 14 9-23 mg/dL Creatinine 0.63 0.73 0.63 0.550-1.02 mg/dL Glomerular Filtration Rate Calc 95 88 95 >90 mL/min BUN/Creatinine Ratio 23.8 H 24.7 H 22.2 H 10.0-20.0 Serum Glucose 76 80 108 H 74-106 mg/dL Hemoglobin A1c 5.2 <5.7 % A1C Calcium Level 8.8 8.8 8.4 L 8.7-10.4 mg/dL Phosphorus Level 3.1 2.4-5.1 mg/dL Magnesium Level 1.8 1.6-2.6 mg/dL Haptoglobin 162 37-355 mg/dL Iron Level 18 L 50-170 ug/dL Total Iron Binding Capacity 255 250-425 ug/dL Percent Iron Saturation 7.1 L 15-50 % Ferritin 48.8 10-291 ng/mL Total Bilirubin 0.7 0.5 0.2-1.0 mg/dL Aspartate Amino Transferase (AST) 24 32 13-40 U/L Alanine Aminotransferase (ALT) 15 13 7-40 U/L Alkaline Phosphatase 65 63 46-116 U/L Total Protein 4.9 L 4.4 L 5.7-8.2 g/dL Albumin 3.2 3.0 L 3.2-4.8 g/dL Assessment/Plan Assessment/Plan Assessment and Plan:Kathy Brooks is a 69 year old female who presents POD 1 s/p ORIF of right distal tib fib 1) pt receiving PRBC now 2) am CBC 3) PT, bed to chair transfers with non w vbearing right LE Plan discussed with: Patient PHANI ODOM MD Mar 12, 2024 13:43
[2024-03-12] MEDS: diphenhdrAMINE HCL 25 MG CAP PO ONE (15:13)
[2024-03-12] MEDS: dilTIAZem 120MG ER CAP PO SCH (21:11)
[2024-03-13] VITALS (8 sets, daily range): BP systolic 103–136; BP diastolic 58–77; PULSE 89–114; RESP 16–20; TEMP 97.3–98.5; O2SAT 93–100
[2024-03-13 05:54] LABS: Basophils # (auto) 0 10 ^3/uL (0-0.2); Basophils % (auto) 0.2 % (0.0-2.0); Eosinophils # (auto) 0 10 ^3/uL (0-0.8); Eosinophils % (auto) 0.2 % (0.0-7.0); Hematocrit 27.4 % (36.0-46.0); Hemoglobin 9.2 g/dL (12.2-16.2); Lymphocytes # (auto) 0.9 10 ^3/uL (0.4-5.4); Lymphocytes % (auto) 9.8 % (10.0-50.0); Mean Corpuscular Hemoglobin 30.3 pg (28.0-32.0); Mean Corpuscular Hgb Conc. 33.4 g/dL (32.0-36.0); Mean Corpuscular Volume 90.7 fL (80.0-100.0); Monocytes # (auto) 0.8 10 ^3/uL (0-1.3); Monocytes % (auto) 8.7 % (0.0-12.0); Neutrophils # (auto) 7.9 10 ^3/uL (1.6-8.6); Neutrophils % (auto) 81.1 % (37.0-80.0); Nucleated Red Blood Cells % 0.2 %; Platelet Count (auto) 249 10^3/uL (140-450); Red Blood Cells 3.02 10^6/uL (4.0-5.20); White Blood Cell 9.7 10^3/uL (4.4-10.8)
[2024-03-13 05:55] LABS: Red Cell Distribution Width 20.3 % (11.8-14.3)
[2024-03-13 06:13] LABS: Alanine Aminotransferase 16 U/L (7-40); Alkaline Phosphatase 80 U/L (46-116); Calcium 9.1 mg/dL (8.7-10.4); Carbon Dioxide 25 mmol/L (20-31); Glucose 89 mg/dL (74-106)
[2024-03-13 06:14] LABS: Albumin 3.5 g/dL (3.2-4.8); Anion Gap 7 (5-15); BUN/Creatinine Ratio 16.1 (10.0-20.0); Blood Urea Nitrogen 9 mg/dL (9-23); Potassium 3.7 mmol/L (3.5-5.1); Sodium 140 mmol/L (136-145)
[2024-03-13 06:34] LABS: Aspartate Aminotransferase 41 U/L (13-40); Bilirubin, Total 1.3 mg/dL (0.2-1.0); Chloride 108 mmol/L (98-107); Total Protein 5.4 g/dL (5.7-8.2)
[2024-03-13 07:40] LABS: Magnesium 1.8 mg/dL (1.6-2.6)
[2024-03-13 07:43] LABS: Phosphorus 2.2 mg/dL (2.4-5.1)
--- NOTE | 2024-03-13 11:31 | DVHPNRES ---
Progress Note Date Seen: Mar 13, 2024 Resident Creating Document: VIVIANA SUTTON RESIDENT Medical Necessity Reason Pt with a Central, PICC or Fol: No Subjective Review of Systems A 69-year-old female with past medical history of AFib COPD history of bone tumor and GERD to came to the hospital due to mechanical fall with trauma in right ankle and knee. No syncope, Patient use a walker at home and due to wrist pain, she couldn't handle properly the walker and she felt. Home meds: Home medication: Diltiazem, aspirin 325 mg p.o. daily, vitamin-D 2000 units daily, ibuprofen 200 mg p.r.n., Pepcid Objective vital signs Vital Sign Date Time Temp Pulse Resp B/P (MAP) Pulse Ox O2 Delivery O2 Flow Rate FiO2 03/13/24 09:08 114 136/77 03/13/24 08:50 98.1 20 95 98.1 03/12/24 20:00 Room Air* 0 21 Total Intake and Output 03/12/24 03/12/24 03/13/24 15:00 23:00 07:00 Intake Total 110 ml 1320 ml 200 ml Balance 110 ml 1320 ml 200 ml medications Current Medications Medications Dose Ordered Sig/Jez Route Start Time Stop Time Status Last Admin Dose Admin Acetaminophen 650 mg Q6HP PRN PO 03/08/24 19:30 Cancel Morphine Sulfate 2 mg Q4HPRN PRN IV 03/08/24 19:30 03/13/24 03:11 2 MG Pantoprazole Sodium 40 mg DAILY IV 03/09/24 10:00 03/13/24 09:09 40 MG Enoxaparin Sodium 60 mg Q12HR SC 03/09/24 22:00 Hold 03/09/24 23:30 60 MG Acetaminophen/ Hydrocodone Bitart 1 tab Q6HP PRN PO 03/10/24 09:30 03/13/24 09:09 1 TAB Potassium Chloride/Dextrose/ Sod Cl 1,000 ml @ 150 mls/hr Q6H40M IV 03/11/24 12:45 03/13/24 04:45 150 MLS/HR Iron Sucrose 110 ml @ 110 mls/hr DAILY@1200 IV 03/12/24 12:00 03/16/24 12:59 03/12/24 11:36 110 MLS/HR Diltiazem HCl 120 mg BID PO 03/12/24 20:15 03/13/24 09:08 120 MG Examination GEN: Healthy appearing, well-developed, NAD. PSYCH: Good Judgment. AOx3. Normal memory, mood, and affect. HEENT -Head: normocephalic atraumatic, no facial trauma, neck is supple -Eyes: PERRL, EOMI. No discharge or redness; -Ears: External ears are normal. Normal TMs. -Nose: Normal nares. -Mouth and throat: MMM. Normal gums, mucosa, palate,. Good dentition. NECK: Supple, with no masses. CV: RRR, no m/r/g. LUNGS: respiratory effort normal, speaks in full sentences, no tripod position, no accessory muscle use. Lungs clear to auscultation without rhonchi, wheezes, rales ABD: Soft, ND/NT. No evidence of fluid wave. No pulsatile masses on exam, rebound tenderness, Nichols sign or pain over Mcburney's point. : N/A SKIN: Warm, well perfused. No skin rashes or abnormal lesions. MSK/skin: pain in the left hip and knee, when mobilizing right lower limb presents severe pain. Skin is dry and warm. Right foot has conserved pulses in is warm to touch. Pain in the right wrist , cast in right foot EXT: No clubbing, cyanosis, or edema. NEURO: Ambulating with no limitations. Normal muscle strength and tone. No focal deficits laboratory and microbiology Laboratory Tests 03/13/24 05:24 Test 03/13/24 05:24 Range/Units Serum Glucose 89 74-106 mg/dL Problem List/Assessment/Plan Problem List/Assessment/Plan #s/p Open reduction internal fixation of right distal tiba, fibula fracture #Comminuted fracture of the right ankle due to trauma from mechanical fall #Possible right schaphoid nondisplaced fracture- conservative management # Moderate left hip osteoarthritis #comminuted fracture involving the distal femur shaft #Syncope ruled out #Paroxysmal Atrial fibrillation (chads Vasc 2/has bled 2) with RVR at admission now normal #secondary hypercoagulability state #COPD, not on exacerbation #Current tobacco abuse #Subclinical hypothyroidism #History of bone tumor - status post resection #ferropeninc severe anemia Images: ECHO: Mildly concentric left ventricular hypertrophy. Well-preserved left ventricular systolic function with estimated ejection fraction 55%. There is a grade diastolic 2 dysfunction. Normal right ventricular size and dimension. Normal left ventricular systolic function. Mildly elevated right ventricular systolic [id number] mm of mercury. Moderately dilated right and left atria. Aortic valve is thickened and calcific it is functionally bicuspid aortic valve with mild aortic valve regurgitation. The mitral valve is mildly thickened there is mild mitral valve regurgitation. There is moderate to severe tricuspid valve regurgitation. The pulmonary valve is grossly normal. No pericardial effusion. Chest CT scan: 1. No mediastinal mass is seen. 2. Vague ground-glass densities seen in the right middle lobe may reflect mild atypical pneumonia. Recommend follow-up noncontrast chest CT in 3 months to evaluate for stability. 3. Moderate to severe centrilobular emphysema. Ankle CT scan: Distal tibial and fibular fractures status post casting. Diffuse soft tissue swelling noted. wrist xray Subtle cortical lucencies are present associated with the proximal pole of the scaphoid possibly representing a nondisplaced fracture versus artifact. Recommend correlation with point tenderness. knee xray: comminuted fracture involving the distal femur shaft Plan: 1RBC already given Iron infusion Open reduction internal fixation of right distal tibia/ fibula fracture, no complications Dr Ryan is aware of knee xray findings: surgery tomorrow Cardiology already gave clearance Hold on Aspirin due to surgery and anemia Keep diltiazem due to HR above 100s: due to pain [place] and Morphine for pain Keep maintenance fluid: 60cc/h Protonix Hold on enoxaparin today due to anemia Pt is not candidate for oral anticoagulants as outpatient due to high risk of bleeding and fall risk Case discussed Dr Guzmán Time spent on care 23 min Plan discussed with: Patient, Other My Orders My Orders Orders - VIVIANA SUTTON RESIDENT Procedure Category Date Status Time Pt Request For Service PT 03/12/24 Logged 15:14 L Hip Complete Xray XY 03/13/24 Logged 10:15 R Knee 2v Xray XY 03/13/24 Logged 10:18 CC Plasma Assessment Blood Product Administration S: [id number] Date of Service: Mar 13, 2024 Billing Provider: BAY GUZMÁN MD Common Visit Codes: [id number] INP/OBS CARE(HIGH) VIVIANA SUTTON RESIDENT Mar 13, 2024 11:31 BAY GUZMÁN MD Mar 18, 2024 18:06
--- NOTE | 2024-03-13 12:27 | DVH ---
CLINICAL INDICATION: hip pain TECHNIQUE: XY L HIP COMPLETE XRAY Comparison: None FINDINGS/IMPRESSION: There is no evidence of acute fracture or dislocation. Moderate left hip osteoarthritis The alignment is anatomical. There is no radiopaque foreign body.
--- NOTE | 2024-03-13 12:28 | DVH ---
CLINICAL INDICATION: knee pain TECHNIQUE: XY R KNEE 2V XRAY Comparison: XY R ANKLE 2 VIEW XRAY on DOS: 03/11/24, XY R ANKLE 2 VIEW XRAY on DOS: 03/08/24, XY R ANKL E 2 VIEW XRAY on DOS: 03/08/24 FINDINGS/IMPRESSION: comminuted fracture involving the distal femur shaft. Moderate joint effusion. Diffuse soft tissue s welling.
--- NOTE | 2024-03-13 16:20 | DVHPN2 ---
Date of Progress Note Date of Progress Note Date of Progress Note: 03/13/24 Date of Admission Date of Admission Date of Admission: Date of Admission: Mar 08, 2024 at 19:28 Overnight Events Overnight events Overnight Events Pt with pain right knee, XR taken of right knee and hip XR showed right distal femur fracture, no evidence of fracture right hip Family History Family History Family History: Patient reports no known family medical history. Allergies: Coded Allergies: Penicillins (Verified Allergy, Intermediate, 02/08/22) Home Meds Reported Medications Cyanocobalamin (B12) 1,000 Mcg Cap, 1000 MCG PO DAILY, CAP 03/09/24 Famotidine (Famotidine) 20 Mg Tab, 40 MG PO BID for 30 Days, MG 03/09/24 Cholecalciferol (D3) 2,000 Unit Tab, 2000 UNIT PO DAILY, TAB 03/09/24 Albuterol Sulfate (VENTOLIN MDI) 90 Mcg Ih, 90 MCG IN QIDP, INH 03/09/24 Ibuprofen Micronized (Ibuprofen) 800 Mg Tab, 800 MG PO TIDPRN, TAB 03/09/24 Aspirin (Aspirin) 325 Mg Tab, 325 MG PO DAILY for 30 Days, MG 03/09/24 [id number] W/Apap (Cough Syrup M) Syp 10/07/11 Aspirin (Asa) 81 Mg Ch 10/07/11 Current Medications Current Medications Medications (Trade) Dose Ordered Sig/Jez Route PRN Reason Start Time Stop Time Status Last Admin Diltiazem HCl (Cardizem ER Capsule) 120 mg BID PO 03/12/24 20:15 03/13/24 09:08 Physical Examination General Examination: Last Vital sign Vital Signs Date Time Temp Pulse Resp B/P (MAP) Pulse Ox O2 Delivery O2 Flow Rate FiO2 03/13/24 14:27 92 18 106/65 03/13/24 12:30 97.3 95 97.3 03/12/24 20:00 Room Air* 0 21 General: General: No apparent distress, appears comfortable. Cooperative. HEENT: NCAT alert oriented x4 Extremities: Right knee ,swollen, skin intact, ROM , stability not assessed due to fracture Right lower leg, incisions clean, non-draining Skin: intact Neurological Examination: Neurological Examination: Mental Status: Cranial Nerves: Motor Examination: Reflexes: Sensory: Coordination: Gait: NVI Labs: Labs: Laboratory Tests Test 03/08/24 18:18 03/08/24 23:06 03/09/24 05:48 03/09/24 14:20 Range/Units White Blood Count 5.4 5.4 4.4-10.8 10^3/uL Red Blood Count 3.23 L 2.58 L 4.0-5.20 10^6/uL Hemoglobin 10.4 L 8.4 #L 12.2-16.2 g/dL Hematocrit 31.0 L 24.8 #L 36.0-46.0 % Mean Corpuscular Volume 96.0 96.2 80.0-100.0 fL Mean Corpuscular Hemoglobin 32.1 H 32.6 H 28.0-32.0 pg Mean Corpuscular Hemoglobin Concent 33.4 33.8 32.0-36.0 g/dL Red Cell Distribution Width 14.4 H 14.3 11.8-14.3 % Platelet Count 243 200 140-450 10^3/uL Mean Platelet Volume 7.8 8.0 6.9-10.8 fL Neutrophils (%) (Auto) 71.9 69.2 37.0-80.0 % Lymphocytes (%) (Auto) 20.1 21.3 10.0-50.0 % Monocytes (%) (Auto) 6.5 8.5 0.0-12.0 % Eosinophils (%) (Auto) 0.5 0.4 0.0-7.0 % Basophils (%) (Auto) 1.0 0.6 0.0-2.0 % Neutrophils # (Auto) 3.8 3.8 1.6-8.6 10 ^3/uL Lymphocytes # (Auto) 1.1 1.2 0.4-5.4 10 ^3/uL Monocytes # (Auto) 0.3 0.5 0-1.3 10 ^3/uL Eosinophils # (Auto) 0 0 0-0.8 10 ^3/uL Basophils # (Auto) 0.1 0 0-0.2 10 ^3/uL Nucleated Red Blood Cells 0.0 0.1 % Prothrombin Time 10.9 11.1 9.3-11.8 sec Prothrombin Time INR 1.03 1.05 0.9-1.15 Sodium Level 146 H 146 H 136-145 mmol/L Potassium Level 3.3 L 3.8 3.5-5.1 mmol/L Chloride Level 113 H 115 H 98-107 mmol/L Carbon Dioxide Level 25 26 20-31 mmol/L Anion Gap 8 5 5-15 Blood Urea Nitrogen 19 16 9-23 mg/dL Creatinine 1.02 0.78 0.550-1.02 mg/dL Glomerular Filtration Rate Calc 59 82 >90 mL/min BUN/Creatinine Ratio 18.6 20.5 H 10.0-20.0 Serum Glucose 141 H 81 74-106 mg/dL Calcium Level 9.4 8.8 8.7-10.4 mg/dL Total Bilirubin 0.3 0.5 0.2-1.0 mg/dL Aspartate Amino Transferase (AST) 12 L 13 13-40 U/L Alanine Aminotransferase (ALT) 14 13 7-40 U/L Alkaline Phosphatase 69 60 46-116 U/L Total Protein 5.5 L 4.9 L 5.7-8.2 g/dL Albumin 3.8 3.4 3.2-4.8 g/dL Thyroid Stimulating Hormone (TSH) 5.57 H 0.55-4.78 uIU/mL Activated Partial Thromboplast Time 24.9 24.5-34.5 SEC Iron Level 50 50-170 ug/dL Total Iron Binding Capacity 287 250-425 ug/dL Percent Iron Saturation 17.4 15-50 % Ferritin 20.9 10-291 ng/mL Vitamin D 25-Hydroxy 32.7 30.0-100 ng/mL Free Thyroxine (T4) Calculated 0.94 0.89-1.76 ng/dL Free Triiodothyronine (T3) pg/mL 2.89 2.3-4.2 pg/mL Urine Color Light-yellow Yellow Urine Clarity Clear Clear Urine pH 6.5 5.0-9.0 Urine Specific [place] 1.019 1.001-1.035 Urine Protein Trace H Negative Urine Ketones 1+ H Negative Urine Blood Negative Negative /uL Urine Nitrite Negative Negative Urine Bilirubin Negative Negative Urine Urobilinogen Normal Negative mg/dL Urine Leukocyte Esterase Negative Negative /uL Urine RBC 1 0 - 4 /hpf Urine WBC 2 0 - 5 /hpf Urine Squamous Epithelial Cells Few <5 /hpf Urine Bacteria None seen None Seen /hpf Urine Glucose Normal Normal mg/dL Urine Opiates Screen Pos NEGATIVE Urine Fentanyl Screen Pos NEGATIVE Urine Barbiturates Screen Neg NEGATIVE Urine Phencyclidine Screen Neg NEGATIVE Urine Amphetamines Screen Neg NEGATIVE Urine Benzodiazepines Screen Pos NEGATIVE Urine Cocaine Screen Neg NEGATIVE Urine Cannabinoids Screen Neg NEGATIVE Test 03/10/24 05:11 03/11/24 05:34 03/12/24 04:53 03/13/24 05:24 Range/Units White Blood Count 5.8 5.4 8.7 # 9.7 4.4-10.8 10^3/uL Red Blood Count 2.50 L 2.26 L 2.12 L 3.02 L 4.0-5.20 10^6/uL Hemoglobin 8.2 L 7.5 L 7.0 *L 9.2 #L 12.2-16.2 g/dL Hematocrit 24.2 L 22.1 L 20.6 L 27.4 #L 36.0-46.0 % Mean Corpuscular Volume 96.8 97.8 97.1 90.7 # 80.0-100.0 fL Mean Corpuscular Hemoglobin 32.9 H 32.9 H 32.8 H 30.3 28.0-32.0 pg Mean Corpuscular Hemoglobin Concent 34.0 33.7 33.8 33.4 32.0-36.0 g/dL Red Cell Distribution Width 14.6 H 14.2 14.3 20.3 H 11.8-14.3 % Platelet Count 204 199 212 249 140-450 10^3/uL Mean Platelet Volume 7.9 8.0 7.6 7.4 6.9-10.8 fL Neutrophils (%) (Auto) 69.7 67.9 77.8 81.1 H 37.0-80.0 % Lymphocytes (%) (Auto) 20.3 20.8 11.7 9.8 L 10.0-50.0 % Monocytes (%) (Auto) 8.9 9.7 10.1 8.7 0.0-12.0 % Eosinophils (%) (Auto) 0.3 0.8 0.2 0.2 0.0-7.0 % Basophils (%) (Auto) 0.8 0.8 0.2 0.2 0.0-2.0 % Neutrophils # (Auto) 4.0 3.7 6.8 7.9 1.6-8.6 10 ^3/uL Lymphocytes # (Auto) 1.2 1.1 1.0 0.9 0.4-5.4 10 ^3/uL Monocytes # (Auto) 0.5 0.5 0.9 0.8 0-1.3 10 ^3/uL Eosinophils # (Auto) 0 0 0 0 0-0.8 10 ^3/uL Basophils # (Auto) 0 0 0 0 0-0.2 10 ^3/uL Nucleated Red Blood Cells 0.0 0.1 0.0 0.2 % Sodium Level 145 145 140 # 140 136-145 mmol/L Potassium Level 3.7 3.8 3.8 3.7 3.5-5.1 mmol/L Chloride Level 113 H 114 H 111 H 108 H 98-107 mmol/L Carbon Dioxide Level 25 26 26 25 20-31 mmol/L Anion Gap 7 5 3 L 7 5-15 Blood Urea Nitrogen 15 18 14 9 9-23 mg/dL Creatinine 0.63 0.73 0.63 0.56 0.550-1.02 mg/dL Glomerular Filtration Rate Calc 95 88 95 98 >90 mL/min BUN/Creatinine Ratio 23.8 H 24.7 H 22.2 H 16.1 10.0-20.0 Serum Glucose 76 80 108 H 89 74-106 mg/dL Hemoglobin A1c 5.2 <5.7 % A1C Calcium Level 8.8 8.8 8.4 L 9.1 8.7-10.4 mg/dL Phosphorus Level 3.1 2.2 L 2.4-5.1 mg/dL Magnesium Level 1.8 1.8 1.6-2.6 mg/dL Haptoglobin 162 37-355 mg/dL Iron Level 18 L 50-170 ug/dL Total Iron Binding Capacity 255 250-425 ug/dL Percent Iron Saturation 7.1 L 15-50 % Ferritin 48.8 10-291 ng/mL Total Bilirubin 0.7 0.5 1.3 H 0.2-1.0 mg/dL Aspartate Amino Transferase (AST) 24 32 41 H 13-40 U/L Alanine Aminotransferase (ALT) 15 13 16 7-40 U/L Alkaline Phosphatase 65 63 80 46-116 U/L Total Protein 4.9 L 4.4 L 5.4 L 5.7-8.2 g/dL Albumin 3.2 3.0 L 3.5 3.2-4.8 g/dL Imaging Imagin03/13/24 XR right knee, supracondylar femur fracture Assessment/Plan Assessment/Plan Assessment and Plan:Kathy Brooks is a 69 year old female, POD 2 s/p ORIF right distal tib fib fx, now with right distal femur fracture 1) CBC 2) surgery , ORIF right distal femur fracture , 03/15/24, NPO after midnight 03/14/24 Plan discussed with: Patient PHANI ODOM MD Mar 13, 2024 16:20
[2024-03-13 17:40] LABS: Basophils # (auto) 0 10 ^3/uL (0-0.2); Basophils % (auto) 0.3 % (0.0-2.0); Eosinophils # (auto) 0 10 ^3/uL (0-0.8); Eosinophils % (auto) 0.3 % (0.0-7.0); Hematocrit 23.8 % (36.0-46.0); Lymphocytes # (auto) 0.8 10 ^3/uL (0.4-5.4); Lymphocytes % (auto) 11.8 % (10.0-50.0); Mean Corpuscular Hemoglobin 30.6 pg (28.0-32.0); Mean Corpuscular Hgb Conc. 33.5 g/dL (32.0-36.0); Mean Corpuscular Volume 91.6 fL (80.0-100.0); Monocytes # (auto) 0.6 10 ^3/uL (0-1.3); Monocytes % (auto) 9.6 % (0.0-12.0); Neutrophils # (auto) 5.2 10 ^3/uL (1.6-8.6); Nucleated Red Blood Cells % 0.1 %; Platelet Count (auto) 231 10^3/uL (140-450); White Blood Cell 6.7 10^3/uL (4.4-10.8)
[2024-03-13 17:42] LABS: Red Cell Distribution Width 20.3 % (11.8-14.3)
[2024-03-14] VITALS (8 sets, daily range): BP systolic 112–153; BP diastolic 52–79; PULSE 81–107; RESP 16–19; TEMP 97.1–99.1; O2SAT 93–98
[2024-03-14 06:52] LABS: Basophils # (auto) 0 10 ^3/uL (0-0.2); Basophils % (auto) 0.2 % (0.0-2.0); Eosinophils # (auto) 0.1 10 ^3/uL (0-0.8); Hematocrit 22.9 % (36.0-46.0); Hemoglobin 7.6 g/dL (12.2-16.2); Lymphocytes # (auto) 0.6 10 ^3/uL (0.4-5.4); Lymphocytes % (auto) 9.8 % (10.0-50.0); Mean Corpuscular Hemoglobin 30.5 pg (28.0-32.0); Mean Corpuscular Hgb Conc. 33.3 g/dL (32.0-36.0); Mean Corpuscular Volume 91.6 fL (80.0-100.0); Monocytes # (auto) 0.7 10 ^3/uL (0-1.3); Neutrophils # (auto) 4.7 10 ^3/uL (1.6-8.6); Nucleated Red Blood Cells % 0.1 %; Platelet Count (auto) 238 10^3/uL (140-450); White Blood Cell 6.1 10^3/uL (4.4-10.8)
[2024-03-14 07:15] LABS: Alanine Aminotransferase 12 U/L (7-40); Alkaline Phosphatase 68 U/L (46-116); Anion Gap 4 (5-15); BUN/Creatinine Ratio 14.5 (10.0-20.0); Calcium 8.7 mg/dL (8.7-10.4); Carbon Dioxide 25 mmol/L (20-31); Sodium 138 mmol/L (136-145)
[2024-03-14 07:16] LABS: Aspartate Aminotransferase 24 U/L (13-40); Bilirubin, Total 0.7 mg/dL (0.2-1.0)
[2024-03-14 07:25] LABS: Albumin 2.9 g/dL (3.2-4.8); Blood Urea Nitrogen 8 mg/dL (9-23); Chloride 109 mmol/L (98-107); Glucose 123 mg/dL (74-106); Total Protein 4.6 g/dL (5.7-8.2)
[2024-03-14] MEDS: SODIUM PHOSPHATES 20 MEQ in SODIUM CHL 0.9% 100 ML IV ONE (12:49)
[2024-03-14 15:23] LABS: Hematocrit 26.2 % (36.0-46.0); Hemoglobin 8.6 g/dL (12.2-16.2)
--- NOTE | 2024-03-14 17:48 | DVHPNRES ---
Progress Note Date Seen: Mar 14, 2024 Resident Creating Document: VIVIANA SUTTON RESIDENT Medical Necessity Reason Pt with a Central, PICC or Fol: No Subjective Review of Systems A 69-year-old female with past medical history of AFib COPD history of bone tumor and GERD to came to the hospital due to mechanical fall with trauma in right ankle and knee. No syncope, Patient use a walker at home and due to wrist pain, she couldn't handle properly the walker and she felt. Home meds: Home medication: Diltiazem, aspirin 325 mg p.o. daily, vitamin-D 2000 units daily, ibuprofen 200 mg p.r.n., Pepcid Objective vital signs Vital Sign Date Time Temp Pulse Resp B/P (MAP) Pulse Ox O2 Delivery O2 Flow Rate FiO2 03/14/24 16:00 99.1 98 17 112/72 (85) 93 99.1 03/13/24 19:40 Nasal Cannula* 2 28 Total Intake and Output 03/13/24 03/13/24 03/14/24 15:00 23:00 07:00 Intake Total 110 ml 954 ml 1250 ml Balance 110 ml 954 ml 1250 ml medications Current Medications Medications Dose Ordered Sig/Jez Route Start Time Stop Time Status Last Admin Dose Admin Acetaminophen 650 mg Q6HP PRN PO 03/08/24 19:30 Cancel Morphine Sulfate 2 mg Q4HPRN PRN IV 03/08/24 19:30 03/14/24 14:29 2 MG Pantoprazole Sodium 40 mg DAILY IV 03/09/24 10:00 03/14/24 09:50 40 MG Enoxaparin Sodium 60 mg Q12HR SC 03/09/24 22:00 Hold 03/09/24 23:30 60 MG Acetaminophen/ Hydrocodone Bitart 1 tab Q6HP PRN PO 03/10/24 09:30 03/13/24 20:47 1 TAB Potassium Chloride/Dextrose/ Sod Cl 1,000 ml @ 150 mls/hr Q6H40M IV 03/11/24 12:45 03/14/24 12:48 150 MLS/HR Iron Sucrose 110 ml @ 110 mls/hr DAILY@1200 IV 03/12/24 12:00 03/16/24 12:59 03/13/24 13:19 110 MLS/HR Diltiazem HCl 120 mg BID PO 03/12/24 20:15 03/14/24 09:50 120 MG Examination GEN: Healthy appearing, well-developed, NAD. PSYCH: Good Judgment. AOx3. Normal memory, mood, and affect. HEENT -Head: normocephalic atraumatic, no facial trauma, neck is supple -Eyes: PERRL, EOMI. No discharge or redness; -Ears: External ears are normal. Normal TMs. -Nose: Normal nares. -Mouth and throat: MMM. Normal gums, mucosa, palate,. Good dentition. NECK: Supple, with no masses. CV: RRR, no m/r/g. LUNGS: respiratory effort normal, speaks in full sentences, no tripod position, no accessory muscle use. Lungs clear to auscultation without rhonchi, wheezes, rales ABD: Soft, ND/NT. No evidence of fluid wave. No pulsatile masses on exam, rebound tenderness, Nichols sign or pain over Mcburney's point. : N/A SKIN: Warm, well perfused. No skin rashes or abnormal lesions. MSK/skin: pain in the left hip and knee, when mobilizing right lower limb presents severe pain. Skin is dry and warm. Right foot has conserved pulses in is warm to touch. Pain in the right wrist , cast in right foot EXT: No clubbing, cyanosis, or edema. NEURO: Ambulating with no limitations. Normal muscle strength and tone. No focal deficits laboratory and microbiology Laboratory Tests 03/14/24 15:09 03/14/24 05:59 Test 03/14/24 05:59 Range/Units Serum Glucose 123 H 74-106 mg/dL Problem List/Assessment/Plan Problem List/Assessment/Plan #s/p Open reduction internal fixation of right distal tiba, fibula fracture #Comminuted fracture of the right ankle due to trauma from mechanical fall #Possible right schaphoid nondisplaced fracture- conservative management # Moderate left hip osteoarthritis #comminuted fracture involving the distal femur shaft #Syncope ruled out #Paroxysmal Atrial fibrillation (chads Vasc 2/has bled 2) with RVR at admission now normal #secondary hypercoagulability state #COPD, not on exacerbation #Current tobacco abuse #Subclinical hypothyroidism #History of bone tumor - status post resection #ferropeninc severe anemia #Hypophosphatemia Images: ECHO: Mildly concentric left ventricular hypertrophy. Well-preserved left ventricular systolic function with estimated ejection fraction 55%. There is a grade diastolic 2 dysfunction. Normal right ventricular size and dimension. Normal left ventricular systolic function. Mildly elevated right ventricular systolic [id number] mm of mercury. Moderately dilated right and left atria. Aortic valve is thickened and calcific it is functionally bicuspid aortic valve with mild aortic valve regurgitation. The mitral valve is mildly thickened there is mild mitral valve regurgitation. There is moderate to severe tricuspid valve regurgitation. The pulmonary valve is grossly normal. No pericardial effusion. Chest CT scan: 1. No mediastinal mass is seen. 2. Vague ground-glass densities seen in the right middle lobe may reflect mild atypical pneumonia. Recommend follow-up noncontrast chest CT in 3 months to evaluate for stability. 3. Moderate to severe centrilobular emphysema. Ankle CT scan: Distal tibial and fibular fractures status post casting. Diffuse soft tissue swelling noted. wrist xray Subtle cortical lucencies are present associated with the proximal pole of the scaphoid possibly representing a nondisplaced fracture versus artifact. Recommend correlation with point tenderness. knee xray: comminuted fracture involving the distal femur shaft Plan: 1RBC already given Iron infusion Open reduction internal fixation of right distal tibia/ fibula fracture, no complications Dr Ryan is aware of knee xray findings: surgery tomorrow Cardiology already gave clearance Hold on Aspirin due to surgery and anemia Keep diltiazem due to HR above 100s: due to pain [place] and Morphine for pain Dr Ryan increased fluids 150cc/h Protonix Hold on enoxaparin today due to anemia Pt is not candidate for oral anticoagulants as outpatient due to high risk of bleeding and fall risk Phospate given Case discussed Dr Guzmán Time spent on care 23 min Plan discussed with: Patient, Other (rn) Dietary Evaluation Review Comments: Continue current plan of care Expected Outcomes/Goals: F/U in 3-5 days CC Plasma Assessment Blood Product Administration S: 1746 Date of Service: Mar 14, 2024 Billing Provider: BAY GUZMÁN MD Common Visit Codes: [id number] INP/OBS CARE(HIGH) VIVIANA SUTTON RESIDENT Mar 14, 2024 17:47 BAY GUZMÁN MD Mar 18, 2024 18:07
--- NOTE | 2024-03-14 18:45 | DVHPN2 ---
Date of Progress Note Date of Progress Note Date of Progress Note: 03/14/24 Date of Admission Date of Admission Date of Admission: Date of Admission: Mar 08, 2024 at 19:28 Overnight Events Overnight events Overnight Events lorrie pain on POs able to void without alexander Family History Family History Family History: Patient reports no known family medical history. Allergies: Coded Allergies: Penicillins (Verified Allergy, Intermediate, 02/08/22) Home Meds Reported Medications Cyanocobalamin (B12) 1,000 Mcg Cap, 1000 MCG PO DAILY, CAP 03/09/24 Famotidine (Famotidine) 20 Mg Tab, 40 MG PO BID for 30 Days, MG 03/09/24 Cholecalciferol (D3) 2,000 Unit Tab, 2000 UNIT PO DAILY, TAB 03/09/24 Albuterol Sulfate (VENTOLIN MDI) 90 Mcg Ih, 90 MCG IN QIDP, INH 03/09/24 Ibuprofen Micronized (Ibuprofen) 800 Mg Tab, 800 MG PO TIDPRN, TAB 03/09/24 Aspirin (Aspirin) 325 Mg Tab, 325 MG PO DAILY for 30 Days, MG 03/09/24 [id number] W/Apap (Cough Syrup M) Syp 10/07/11 Aspirin (Asa) 81 Mg Ch 10/07/11 Physical Examination General Examination: Last Vital sign Vital Signs Date Time Temp Pulse Resp B/P (MAP) Pulse Ox O2 Delivery O2 Flow Rate FiO2 03/14/24 18:37 98 18 112/72 03/14/24 16:00 99.1 93 99.1 03/13/24 19:40 Nasal Cannula* 2 28 General: General: No apparent distress, appears comfortable. Cooperative. Extremities: Right leg in walker boot for ORIF of distal tib fib right knee swollen, skin intact, NVI Skin: intact Neurological Examination: Neurological Examination: Mental Status: Cranial Nerves: Motor Examination: Reflexes: Sensory: Coordination: Gait: NVI Labs: Labs: Laboratory Tests Test 03/08/24 18:18 03/08/24 23:06 03/09/24 05:48 03/09/24 14:20 Range/Units White Blood Count 5.4 5.4 4.4-10.8 10^3/uL Red Blood Count 3.23 L 2.58 L 4.0-5.20 10^6/uL Hemoglobin 10.4 L 8.4 #L 12.2-16.2 g/dL Hematocrit 31.0 L 24.8 #L 36.0-46.0 % Mean Corpuscular Volume 96.0 96.2 80.0-100.0 fL Mean Corpuscular Hemoglobin 32.1 H 32.6 H 28.0-32.0 pg Mean Corpuscular Hemoglobin Concent 33.4 33.8 32.0-36.0 g/dL Red Cell Distribution Width 14.4 H 14.3 11.8-14.3 % Platelet Count 243 200 140-450 10^3/uL Mean Platelet Volume 7.8 8.0 6.9-10.8 fL Neutrophils (%) (Auto) 71.9 69.2 37.0-80.0 % Lymphocytes (%) (Auto) 20.1 21.3 10.0-50.0 % Monocytes (%) (Auto) 6.5 8.5 0.0-12.0 % Eosinophils (%) (Auto) 0.5 0.4 0.0-7.0 % Basophils (%) (Auto) 1.0 0.6 0.0-2.0 % Neutrophils # (Auto) 3.8 3.8 1.6-8.6 10 ^3/uL Lymphocytes # (Auto) 1.1 1.2 0.4-5.4 10 ^3/uL Monocytes # (Auto) 0.3 0.5 0-1.3 10 ^3/uL Eosinophils # (Auto) 0 0 0-0.8 10 ^3/uL Basophils # (Auto) 0.1 0 0-0.2 10 ^3/uL Nucleated Red Blood Cells 0.0 0.1 % Prothrombin Time 10.9 11.1 9.3-11.8 sec Prothrombin Time INR 1.03 1.05 0.9-1.15 Sodium Level 146 H 146 H 136-145 mmol/L Potassium Level 3.3 L 3.8 3.5-5.1 mmol/L Chloride Level 113 H 115 H 98-107 mmol/L Carbon Dioxide Level 25 26 20-31 mmol/L Anion Gap 8 5 5-15 Blood Urea Nitrogen 19 16 9-23 mg/dL Creatinine 1.02 0.78 0.550-1.02 mg/dL Glomerular Filtration Rate Calc 59 82 >90 mL/min BUN/Creatinine Ratio 18.6 20.5 H 10.0-20.0 Serum Glucose 141 H 81 74-106 mg/dL Calcium Level 9.4 8.8 8.7-10.4 mg/dL Total Bilirubin 0.3 0.5 0.2-1.0 mg/dL Aspartate Amino Transferase (AST) 12 L 13 13-40 U/L Alanine Aminotransferase (ALT) 14 13 7-40 U/L Alkaline Phosphatase 69 60 46-116 U/L Total Protein 5.5 L 4.9 L 5.7-8.2 g/dL Albumin 3.8 3.4 3.2-4.8 g/dL Thyroid Stimulating Hormone (TSH) 5.57 H 0.55-4.78 uIU/mL Activated Partial Thromboplast Time 24.9 24.5-34.5 SEC Iron Level 50 50-170 ug/dL Total Iron Binding Capacity 287 250-425 ug/dL Percent Iron Saturation 17.4 15-50 % Ferritin 20.9 10-291 ng/mL Vitamin D 25-Hydroxy 32.7 30.0-100 ng/mL Free Thyroxine (T4) Calculated 0.94 0.89-1.76 ng/dL Free Triiodothyronine (T3) pg/mL 2.89 2.3-4.2 pg/mL Urine Color Light-yellow Yellow Urine Clarity Clear Clear Urine pH 6.5 5.0-9.0 Urine Specific [place] 1.019 1.001-1.035 Urine Protein Trace H Negative Urine Ketones 1+ H Negative Urine Blood Negative Negative /uL Urine Nitrite Negative Negative Urine Bilirubin Negative Negative Urine Urobilinogen Normal Negative mg/dL Urine Leukocyte Esterase Negative Negative /uL Urine RBC 1 0 - 4 /hpf Urine WBC 2 0 - 5 /hpf Urine Squamous Epithelial Cells Few <5 /hpf Urine Bacteria None seen None Seen /hpf Urine Glucose Normal Normal mg/dL Urine Opiates Screen Pos NEGATIVE Urine Fentanyl Screen Pos NEGATIVE Urine Barbiturates Screen Neg NEGATIVE Urine Phencyclidine Screen Neg NEGATIVE Urine Amphetamines Screen Neg NEGATIVE Urine Benzodiazepines Screen Pos NEGATIVE Urine Cocaine Screen Neg NEGATIVE Urine Cannabinoids Screen Neg NEGATIVE Test 03/10/24 05:11 03/11/24 05:34 03/12/24 04:53 03/13/24 05:24 Range/Units White Blood Count 5.8 5.4 8.7 # 9.7 4.4-10.8 10^3/uL Red Blood Count 2.50 L 2.26 L 2.12 L 3.02 L 4.0-5.20 10^6/uL Hemoglobin 8.2 L 7.5 L 7.0 *L 9.2 #L 12.2-16.2 g/dL Hematocrit 24.2 L 22.1 L 20.6 L 27.4 #L 36.0-46.0 % Mean Corpuscular Volume 96.8 97.8 97.1 90.7 # 80.0-100.0 fL Mean Corpuscular Hemoglobin 32.9 H 32.9 H 32.8 H 30.3 28.0-32.0 pg Mean Corpuscular Hemoglobin Concent 34.0 33.7 33.8 33.4 32.0-36.0 g/dL Red Cell Distribution Width 14.6 H 14.2 14.3 20.3 H 11.8-14.3 % Platelet Count 204 199 212 249 140-450 10^3/uL Mean Platelet Volume 7.9 8.0 7.6 7.4 6.9-10.8 fL Neutrophils (%) (Auto) 69.7 67.9 77.8 81.1 H 37.0-80.0 % Lymphocytes (%) (Auto) 20.3 20.8 11.7 9.8 L 10.0-50.0 % Monocytes (%) (Auto) 8.9 9.7 10.1 8.7 0.0-12.0 % Eosinophils (%) (Auto) 0.3 0.8 0.2 0.2 0.0-7.0 % Basophils (%) (Auto) 0.8 0.8 0.2 0.2 0.0-2.0 % Neutrophils # (Auto) 4.0 3.7 6.8 7.9 1.6-8.6 10 ^3/uL Lymphocytes # (Auto) 1.2 1.1 1.0 0.9 0.4-5.4 10 ^3/uL Monocytes # (Auto) 0.5 0.5 0.9 0.8 0-1.3 10 ^3/uL Eosinophils # (Auto) 0 0 0 0 0-0.8 10 ^3/uL Basophils # (Auto) 0 0 0 0 0-0.2 10 ^3/uL Nucleated Red Blood Cells 0.0 0.1 0.0 0.2 % Sodium Level 145 145 140 # 140 136-145 mmol/L Potassium Level 3.7 3.8 3.8 3.7 3.5-5.1 mmol/L Chloride Level 113 H 114 H 111 H 108 H 98-107 mmol/L Carbon Dioxide Level 25 26 26 25 20-31 mmol/L Anion Gap 7 5 3 L 7 5-15 Blood Urea Nitrogen 15 18 14 9 9-23 mg/dL Creatinine 0.63 0.73 0.63 0.56 0.550-1.02 mg/dL Glomerular Filtration Rate Calc 95 88 95 98 >90 mL/min BUN/Creatinine Ratio 23.8 H 24.7 H 22.2 H 16.1 10.0-20.0 Serum Glucose 76 80 108 H 89 74-106 mg/dL Hemoglobin A1c 5.2 <5.7 % A1C Calcium Level 8.8 8.8 8.4 L 9.1 8.7-10.4 mg/dL Phosphorus Level 3.1 2.2 L 2.4-5.1 mg/dL Magnesium Level 1.8 1.8 1.6-2.6 mg/dL Haptoglobin 162 37-355 mg/dL Iron Level 18 L 50-170 ug/dL Total Iron Binding Capacity 255 250-425 ug/dL Percent Iron Saturation 7.1 L 15-50 % Ferritin 48.8 10-291 ng/mL Total Bilirubin 0.7 0.5 1.3 H 0.2-1.0 mg/dL Aspartate Amino Transferase (AST) 24 32 41 H 13-40 U/L Alanine Aminotransferase (ALT) 15 13 16 7-40 U/L Alkaline Phosphatase 65 63 80 46-116 U/L Total Protein 4.9 L 4.4 L 5.4 L 5.7-8.2 g/dL Albumin 3.2 3.0 L 3.5 3.2-4.8 g/dL Test 03/13/24 17:15 03/14/24 05:59 03/14/24 15:09 Range/Units White Blood Count 6.7 # 6.1 4.4-10.8 10^3/uL Red Blood Count 2.60 L 2.50 L 4.0-5.20 10^6/uL Hemoglobin 8.0 L 7.6 L 8.6 L 12.2-16.2 g/dL Hematocrit 23.8 #L 22.9 L 26.2 #L 36.0-46.0 % Mean Corpuscular Volume 91.6 91.6 80.0-100.0 fL Mean Corpuscular Hemoglobin 30.6 30.5 28.0-32.0 pg Mean Corpuscular Hemoglobin Concent 33.5 33.3 32.0-36.0 g/dL Red Cell Distribution Width 20.3 H 20.0 H 11.8-14.3 % Platelet Count 231 238 140-450 10^3/uL Mean Platelet Volume 7.3 7.5 6.9-10.8 fL Neutrophils (%) (Auto) 78.0 78.0 37.0-80.0 % Lymphocytes (%) (Auto) 11.8 9.8 L 10.0-50.0 % Monocytes (%) (Auto) 9.6 11.0 0.0-12.0 % Eosinophils (%) (Auto) 0.3 1.0 0.0-7.0 % Basophils (%) (Auto) 0.3 0.2 0.0-2.0 % Neutrophils # (Auto) 5.2 4.7 1.6-8.6 10 ^3/uL Lymphocytes # (Auto) 0.8 0.6 0.4-5.4 10 ^3/uL Monocytes # (Auto) 0.6 0.7 0-1.3 10 ^3/uL Eosinophils # (Auto) 0 0.1 0-0.8 10 ^3/uL Basophils # (Auto) 0 0 0-0.2 10 ^3/uL Nucleated Red Blood Cells 0.1 0.1 % Sodium Level 138 136-145 mmol/L Potassium Level 4.0 3.5-5.1 mmol/L Chloride Level 109 H 98-107 mmol/L Carbon Dioxide Level 25 20-31 mmol/L Anion Gap 4 L 5-15 Blood Urea Nitrogen 8 L 9-23 mg/dL Creatinine 0.55 0.550-1.02 mg/dL Glomerular Filtration Rate Calc 99 >90 mL/min BUN/Creatinine Ratio 14.5 10.0-20.0 Serum Glucose 123 H 74-106 mg/dL Calcium Level 8.7 8.7-10.4 mg/dL Total Bilirubin 0.7 0.2-1.0 mg/dL Aspartate Amino Transferase (AST) 24 13-40 U/L Alanine Aminotransferase (ALT) 12 7-40 U/L Alkaline Phosphatase 68 46-116 U/L Total Protein 4.6 L 5.7-8.2 g/dL Albumin 2.9 L 3.2-4.8 g/dL Assessment/Plan Assessment/Plan Assessment and Plan:Kathy Brooks is a 69 year old female POD 3 s/p ORIF right distal tib fib fx NPO PM Surgery in AM, ORIF Right SC femure fracture transfuse 2 U PRBC tonight Plan discussed with: Patient PHANI ODOM MD Mar 14, 2024 18:45
[2024-03-15] VITALS (23 sets, daily range): BP systolic 120–141; BP diastolic 71–111; PULSE 68–131; RESP 15–22; TEMP 97.8–98.6; O2SAT 92–100
[2024-03-15] MEDS: LIDOCAINE W/ EPINEPHRINE 1% 20ML VIAL ONE (06:56)
[2024-03-15] MEDS: BUPIVACAINE 0.25% INJ 50ML VIAL ONE (06:56)
[2024-03-15] MEDS: VANCOMYCIN HCL 1000 MG VL ONE (06:58)
[2024-03-15 07:15] LABS: Basophils # (auto) 0 10 ^3/uL (0-0.2); Basophils % (auto) 0.2 % (0.0-2.0); Eosinophils # (auto) 0 10 ^3/uL (0-0.8); Eosinophils % (auto) 0.2 % (0.0-7.0); Hematocrit 25.8 % (36.0-46.0); Hemoglobin 8.6 g/dL (12.2-16.2); Lymphocytes # (auto) 0.6 10 ^3/uL (0.4-5.4); Lymphocytes % (auto) 8.8 % (10.0-50.0); Mean Corpuscular Hemoglobin 30.9 pg (28.0-32.0); Mean Corpuscular Hgb Conc. 33.6 g/dL (32.0-36.0); Mean Corpuscular Volume 92.2 fL (80.0-100.0); Monocytes # (auto) 0.6 10 ^3/uL (0-1.3); Monocytes % (auto) 9.2 % (0.0-12.0); Neutrophils # (auto) 5.3 10 ^3/uL (1.6-8.6); Neutrophils % (auto) 81.6 % (37.0-80.0); Nucleated Red Blood Cells % 0.1 %; Platelet Count (auto) 347 10^3/uL (140-450); Red Blood Cells 2.79 10^6/uL (4.0-5.20); Red Cell Distribution Width 19.1 % (11.8-14.3); White Blood Cell 6.5 10^3/uL (4.4-10.8)
[2024-03-15 07:23] LABS: Alanine Aminotransferase 17 U/L (7-40); Albumin 3.4 g/dL (3.2-4.8); Alkaline Phosphatase 78 U/L (46-116); Anion Gap 7 (5-15); Aspartate Aminotransferase 22 U/L (13-40); Bilirubin, Total 0.9 mg/dL (0.2-1.0); Calcium 9.2 mg/dL (8.7-10.4); Carbon Dioxide 24 mmol/L (20-31); Chloride 107 mmol/L (98-107); Glucose 106 mg/dL (74-106); Magnesium 1.7 mg/dL (1.6-2.6); Phosphorus 2.5 mg/dL (2.4-5.1); Potassium 3.8 mmol/L (3.5-5.1); Sodium 138 mmol/L (136-145)
[2024-03-15 07:24] LABS: BUN/Creatinine Ratio 10.9 (10.0-20.0); Blood Urea Nitrogen < 5 mg/dL (9-23); Total Protein 5.3 g/dL (5.7-8.2)
[2024-03-15] MEDS: BUPIVACAINE 0.5% P/F INJ 10 ML VIAL ONE (07:29)
[2024-03-15] MEDS ORDERED: MORPHINE SULF PF 5 MG/10 ML VIAL ONE (07:32)
[2024-03-15] MEDS ORDERED: fentaNYL CITRATE 100 MCG/2 ML VL ONE (07:32)
[2024-03-15] MEDS ORDERED: MIDAZOLAM HCL 2MG/2ML 2ml VIAL (1mg/ml) ONE (07:32)
[2024-03-15] MEDS ORDERED: KETAMINE 50mg/ML 10ml Vial 10 ML ONE (07:32)
[2024-03-15] MEDS ORDERED: ePHEDrine SULFATE 50 MG/ML AMP ONE (07:33)
[2024-03-15] MEDS ORDERED: PROPOFOL 10 MG/ML 20 ML IV ONE (07:33)
[2024-03-15] MEDS ORDERED: GLYCOPYRROLATE 0.2 MG/ML 1ML VIAL ONE (07:33)
--- NOTE | 2024-03-15 09:19 | DVHOP2 ---
Operative Report - 2 Report Details Date: 03/15/24 Preop Diagnosis: Right supracondylar femur fracture Postop Diagnosis: same Surgeon: Poli Odom MD Audio Visual Tech: none Anesthesiologist: Dr Thompson Anesthesia: Regional Drains: none Implant: Lateral distal femoral plate Consent: The patient was informed of the risks and benefits of the procedure. These include but are not limited to complications of anesthesia, postoperative infection, incomplete relief of symptoms, recurrence of symptoms, damage to blood vessels, nerves and tendons, deep venous thrombosis, pulmonary embolism and possible need for repeat surgery in the future. Complications: none Estimated Blood Loss: 50cc Fluids: 500 cc crystalloid Findings: poor bone quality , supracondylar fracture distal femur Indications for Surgery: unstable fracture with expected non-union malunion without fixation Name of Procedure Performed Open reduction internal fixation of right distal femur fracture Procedure Details Procedure Details: Patient brought in the operating room given Ancef 2 g IV piggyback preoperatively spinal anesthetic Dr. Curran without complication nonsterile tourniquet right thigh sterile prep and drape right lower extremity keeping walker boot in place from prior surgery right distal tib-fib time-out performed comprehension right-sided correct site open reduction internal fixation right di stal femur fracture correct procedure after review of operative consent history and physical my initials on right thigh exsanguination with Esmarch tourniquet elevated to 250 mm of mercury total tourniquet time 28 minutes longitudinal incision made from Gerdy's tubercle to mid mid lateral thigh sharp dissection through skin down to deep fascia deep fascia divided and elevated off of the lateral distal femur and subperiosteal elevation performed over lateral femoral shaft anatomic alignment of fracture achieved with slight traction flexion to 40 and slight valgus stress C-arm fluoro confirmed anatomic alignment of fracture on AP and lateral views a lateral distal femoral plate applied fixed with six screws cancellous distally and five screws proximally cortical fluoro taken again showing anatomic alignment of fracture and good placement of plate irrigation performed excellent hemostasis noted after tourniquet let down closure of deep fascia with some interrupted 0 Vicryl sutures subcutaneous 2-0 Vicryl skin yash fluffs ABD Coban splint from groin to toe with foot dorsiflexed to neutral position patient understands she is to be nonwe ightbearing for a minimum of six up to eight weeks and that she may be permanently nonweightbearing the purpose of fixation to allow more ease with [id number] transfers that given her extremely poor bone density she has extreme risk of re fracture and failure of fixation if she ambulates Specimen: none Condition Stable Disposition Still a Patient POLI ODOM MD Mar 15, 2024 09:19
[2024-03-15] MEDS ORDERED: DexAMETHasone SOD PHOS 10MG/1ML VIAL INJ IV PRN (09:30)
[2024-03-15] MEDS ORDERED: ceFAZolin 1GM/50ML 50 ML IV SCH ×3 (09:30→11:00)
[2024-03-15] MEDS ORDERED: BISACODYL 5 MG EC TAB PO PRN (09:30)
[2024-03-15] MEDS ORDERED: NALOXONE HCL 0.4 MG/ML VIAL IV PRN (09:30)
[2024-03-15] MEDS ORDERED: diphenhdrAMINE HCL 50 MG/1 ML VL IV PRN (09:30)
--- NOTE | 2024-03-15 10:29 | DVH ---
CLINICAL INFORMATION: 69 years old, Female; ORIF RIGHT DISTAL FEMUR. TECHNIQUE: Fluoroscopy was provided for assistance during open reduction internal fixation of the rig ht distal femur. 4 fluoroscopic images were submitted. Total fluoroscopy time was 3.9 s. Cumulative r adiation dose was 0.23 mGy. COMPARISON: XY R KNEE 2V XRAY on DOS: 03/13/24 FINDINGS: Fluoroscopy was provided for assistance during open reduction internal fixation of the dist al right femur. Images demonstrate placement of a compression plate and associated screws transfixing the distal right femur fracture site. IMPRESSION: Fluoroscopy was provided for assistance during open reduction internal fixation of the distal right f emur as described above. Please correlate with the operative report.
--- NOTE | 2024-03-15 10:36 | DVH ---
CLINICAL INFORMATION: 69 years old, Female; EVALUATE HARDWARE PLACEMENT. TECHNIQUE: Fluoroscopy was provided for assistance during evaluation of hardware placement at the [facility] ankle. 1 fluoroscopic image was submitted. Total fluoroscopy time was 3.9 s. Cumulative radiation dose was 0.23 mGy. COMPARISON: XY R ANKLE 2 VIEW XRAY on DOS: 03/11/24 FINDINGS: Fluoroscopy was provided for assistance during evaluation of hardware placement at the [facility] t ankle. Images demonstrate compression plates and associated screws transfixing the tibia and fibula . IMPRESSION: Fluoroscopy was provided for assistance during evaluation of hardware placement at the right ankle as described above. Please correlate with the operative report.
[2024-03-15] MEDS: LACTATED RINGER'S 1,000 ML IV SCH (10:52)
[2024-03-15] MEDS: DOCUSATE SOD 100 MG CAP PO SCH (11:33)
[2024-03-15 15:11] LABS: Hematocrit 32.6 % (36.0-46.0); Hemoglobin 10.9 g/dL (12.2-16.2)
--- NOTE | 2024-03-15 15:40 | DVHPNRES ---
Progress Note Date Seen: Mar 15, 2024 Resident Creating Document: VIVIANA SUTTON RESIDENT Medical Necessity Reason Pt with a Central, PICC or Fol: No Subjective Review of Systems A 69-year-old female with past medical history of AFib COPD history of bone tumor and GERD to came to the hospital due to mechanical fall with trauma in right ankle and knee. No syncope, Patient use a walker at home and due to wrist pain, she couldn't handle properly the walker and she felt. Home meds: Home medication: Diltiazem, aspirin 325 mg p.o. daily, vitamin-D 2000 units daily, ibuprofen 200 mg p.r.n., Pepcid Objective vital signs Vital Sign Date Time Temp Pulse Resp B/P (MAP) Pulse Ox O2 Delivery O2 Flow Rate FiO2 03/15/24 13:00 97.8 102 17 128/81 (97) 98 97.8 03/15/24 09:08 Nasal Cannula 4.0 94 Total Intake and Output 03/14/24 03/14/24 03/15/24 15:00 23:00 07:00 Intake Total 1000 ml 1300 ml Output Total 200 ml Balance 800 ml 1300 ml medications Current Medications Medications Dose Ordered Sig/Jez Route Start Time Stop Time Status Last Admin Dose Admin Acetaminophen 650 mg Q6HP PRN PO 03/08/24 19:30 Cancel Morphine Sulfate 2 mg Q4HPRN PRN IV 03/08/24 19:30 03/15/24 00:52 2 MG Pantoprazole Sodium 40 mg DAILY IV 03/09/24 10:00 03/15/24 11:32 40 MG Enoxaparin Sodium 60 mg Q12HR SC 03/09/24 22:00 Hold 03/09/24 23:30 60 MG Acetaminophen/ Hydrocodone Bitart 1 tab Q6HP PRN PO 03/10/24 09:30 03/13/24 20:47 1 TAB Iron Sucrose 110 ml @ 110 mls/hr DAILY@1200 IV 03/12/24 12:00 03/16/24 12:59 03/15/24 11:42 110 MLS/HR Diltiazem HCl 120 mg BID PO 03/12/24 20:15 03/15/24 11:31 120 MG Diphenhydramine HCl 12.5 mg Q4HP PRN IV 03/15/24 09:30 Ondansetron HCl 2 mg Q4HP PRN IV 03/15/24 09:30 Ketorolac Tromethamine 15 mg Q6HP PRN IV 03/15/24 09:30 03/20/24 09:29 Lactated Ringer's 1,000 ml @ 60 mls/hr [id number] IV 03/15/24 09:30 03/15/24 10:52 60 MLS/HR Docusate Sodium 100 mg Q12HR PO 03/15/24 10:00 03/15/24 11:33 100 MG Bisacodyl 5 mg Q12HP PRN PO 03/15/24 09:30 Cefazolin Sodium 50 ml @ 50 mls/hr Q8H IV 03/15/24 15:00 03/16/24 07:59 Examination GEN: Healthy appearing, well-developed, NAD. PSYCH: Good Judgment. AOx3. Normal memory, mood, and affect. HEENT -Head: normocephalic atraumatic, no facial trauma, neck is supple -Eyes: PERRL, EOMI. No discharge or redness; -Ears: External ears are normal. Normal TMs. -Nose: Normal nares. -Mouth and throat: MMM. Normal gums, mucosa, palate,. Good dentition. NECK: Supple, with no masses. CV: RRR, no m/r/g. LUNGS: respiratory effort normal, speaks in full sentences, no tripod position, no accessory muscle use. Lungs clear to auscultation without rhonchi, wheezes, rales ABD: Soft, ND/NT. No evidence of fluid wave. No pulsatile masses on exam, rebound tenderness, Nichols sign or pain over Mcburney's point. : N/A SKIN: Warm, well perfused. No skin rashes or abnormal lesions. MSK/skin: pain in the left hip and knee, when mobilizing right lower limb presents severe pain. Skin is dry and warm. Right foot has conserved pulses in is warm to touch. Pain in the right wrist , cast in right foot EXT: No clubbing, cyanosis, or edema. NEURO: Ambulating with no limitations. Normal muscle strength and tone. No focal deficits laboratory and microbiology Laboratory Tests 03/15/24 14:35 03/15/24 06:24 Test 03/15/24 06:24 Range/Units Serum Glucose 106 74-106 mg/dL Microbiology Date/Time Source Procedure Growth Status 03/14/24 18:55 Nose MRSA Screen - Final Complete Problem List/Assessment/Plan Problem List/Assessment/Plan #s/p Open reduction internal fixation of right distal tiba, fibula fracture #s/p Open reduction internal fixation of right distal femur fracture #Comminuted fracture of the right ankle due to trauma from mechanical fall #Possible right schaphoid nondisplaced fracture- conservative management # Moderate left hip osteoarthritis #comminuted fracture involving the distal femur shaft #Syncope ruled out #Paroxysmal Atrial fibrillation (chads Vasc 2/has bled 2) with RVR at admission now normal #secondary hypercoagulability state #COPD, not on exacerbation #Current tobacco abuse #Subclinical hypothyroidism #History of bone tumor - status post resection #ferropeninc severe anemia #Hypophosphatemia Images: ECHO: Mildly concentric left ventricular hypertrophy. Well-preserved left ventricular systolic function with estimated ejection fraction 55%. There is a grade diastolic 2 dysfunction. Normal right ventricular size and dimension. Normal left ventricular systolic function. Mildly elevated right ventricular systolic [id number] mm of mercury. Moderately dilated right and left atria. Aortic valve is thickened and calcific it is functionally bicuspid aortic valve with mild aortic valve regurgitation. The mitral valve is mildly thickened there is mild mitral valve regurgitation. There is moderate to severe tricuspid valve regurgitation. The pulmonary valve is grossly normal. No pericardial effusion. Chest CT scan: 1. No mediastinal mass is seen. 2. Vague ground-glass densities seen in the right middle lobe may reflect mild atypical pneumonia. Recommend follow-up noncontrast chest CT in 3 months to evaluate for stability. 3. Moderate to severe centrilobular emphysema. Ankle CT scan: Distal tibial and fibular fractures status post casting. Diffuse soft tissue swelling noted. wrist xray Subtle cortical lucencies are present associated with the proximal pole of the scaphoid possibly representing a nondisplaced fracture versus artifact. Recommend correlation with point tenderness. knee xray: comminuted fracture involving the distal femur shaft Plan: 3RBC already given: hb 10.9 Iron infusion Open reduction internal fixation of right distal tibia/ fibula fracture, no complications Open reduction internal fixation of right distal femur fracture, no complications Cardiology already gave clearance Hold on Aspirin due to surgery and anemia Keep diltiazem due to HR above 100s [place] and Morphine for pain Fluids 60cc/h Protonix Hold on enoxaparin today due to anemia Pt is not candidate for oral anticoagulants as outpatient due to high risk of bleeding and fall risk Phospate given Case discussed Dr Guzmán Time spent on care 23 min Plan discussed with: Patient, Other (rn) Dietary Evaluation Review Comments: Continue current plan of care Expected Outcomes/Goals: F/U in 3-5 days CC Plasma Assessment Blood Product Administration S: 1746 Date of Service: Mar 15, 2024 Billing Provider: BAY GUZMÁN MD Common Visit Codes: [id number] INP/OBS CARE(HIGH) VIVIANA SUTTON RESIDENT Mar 15, 2024 15:40 BAY GUZMÁN MD Mar 18, 2024 18:07
[2024-03-15] MEDS: ceFAZolin 1GM/50ML 50 ML IV SCH (16:23)
[2024-03-16] VITALS (17 sets, daily range): BP systolic 105–136; BP diastolic 68–86; PULSE 76–112; RESP 14–20; TEMP 97.6–98.4; O2SAT 92–100
[2024-03-16 06:17] LABS: Basophils # (auto) 0 10 ^3/uL (0-0.2); Basophils % (auto) 0.2 % (0.0-2.0); Eosinophils # (auto) 0 10 ^3/uL (0-0.8); Hematocrit 30.5 % (36.0-46.0); Hemoglobin 10.3 g/dL (12.2-16.2); Lymphocytes # (auto) 0.3 10 ^3/uL (0.4-5.4); Lymphocytes % (auto) 3.5 % (10.0-50.0); Mean Corpuscular Hemoglobin 30.2 pg (28.0-32.0); Mean Corpuscular Hgb Conc. 33.7 g/dL (32.0-36.0); Mean Corpuscular Volume 89.7 fL (80.0-100.0); Monocytes # (auto) 0.5 10 ^3/uL (0-1.3); Monocytes % (auto) 5.8 % (0.0-12.0); Neutrophils # (auto) 8.6 10 ^3/uL (1.6-8.6); Neutrophils % (auto) 90.5 % (37.0-80.0); Nucleated Red Blood Cells % 0.3 %; Platelet Count (auto) 386 10^3/uL (140-450); White Blood Cell 9.5 10^3/uL (4.4-10.8)
[2024-03-16 06:36] LABS: Alanine Aminotransferase 16 U/L (7-40); Alkaline Phosphatase 82 U/L (46-116); Anion Gap 11 (5-15); BUN/Creatinine Ratio 12.3 (10.0-20.0); Calcium 9.5 mg/dL (8.7-10.4); Carbon Dioxide 24 mmol/L (20-31); Chloride 104 mmol/L (98-107); Potassium 3.5 mmol/L (3.5-5.1); Sodium 139 mmol/L (136-145)
[2024-03-16 06:37] LABS: Aspartate Aminotransferase 22 U/L (13-40); Blood Urea Nitrogen 7 mg/dL (9-23); Glucose 112 mg/dL (74-106)
[2024-03-16 06:38] LABS: Albumin 3.6 g/dL (3.2-4.8); Bilirubin, Total 0.9 mg/dL (0.2-1.0); Total Protein 5.8 g/dL (5.7-8.2)
--- NOTE | 2024-03-16 13:58 | DVH ---
EXAM: US Duplex Left Lower Extremity Veins CLINICAL INDICATION: rule out dvt TECHNIQUE: Real-time duplex ultrasound scan of the left lower extremity veins integrating B-mode two -dimensional vascular structure, Doppler spectral analysis, color flow Doppler imaging and compressio n. COMPARISON: None FINDINGS: DEEP VEINS: Unremarkable. No DVT in the visualized common femoral, femoral, proximal deep femoral o r popliteal veins. The veins demonstrate normal color flow, are normally compressible, with normal p hasic flow and/or augmentation response. SUPERFICIAL VEINS: Unremarkable. No thrombus in the visualized great saphenous vein. SOFT TISSUES: No acute findings. No popliteal cyst. OTHER FINDINGS: . . . IMPRESSION: No DVT.
--- NOTE | 2024-03-16 15:01 | DVHPNRES ---
Progress Note Date Seen: Mar 16, 2024 Resident Creating Document: VIVIANA SUTTON RESIDENT Medical Necessity Reason Pt with a Central, PICC or Fol: No Subjective Review of Systems A 69-year-old female with past medical history of AFib COPD history of bone tumor and GERD to came to the hospital due to mechanical fall with trauma in right ankle and knee. No syncope, Patient use a walker at home and due to wrist pain, she couldn't handle properly the walker and she felt. Home meds: Home medication: Diltiazem, aspirin 325 mg p.o. daily, vitamin-D 2000 units daily, ibuprofen 200 mg p.r.n., Pepcid Objective vital signs Vital Sign Date Time Temp Pulse Resp B/P (MAP) Pulse Ox O2 Delivery O2 Flow Rate FiO2 03/16/24 13:09 98.0 101 18 131/80 (97) 94 98.0 03/16/24 08:00 Nasal Cannula* 2 28 Total Intake and Output 03/15/24 03/15/24 03/16/24 15:00 23:00 07:00 Intake Total 110 ml 290 ml 1470 ml Output Total 250 ml 2000 ml 1200 ml Balance -140 ml -1710 ml 270 ml medications Current Medications Medications Dose Ordered Sig/Jez Route Start Time Stop Time Status Last Admin Dose Admin Acetaminophen 650 mg Q6HP PRN PO 03/08/24 19:30 Cancel Morphine Sulfate 2 mg Q4HPRN PRN IV 03/08/24 19:30 03/15/24 00:52 2 MG Pantoprazole Sodium 40 mg DAILY IV 03/09/24 10:00 03/16/24 10:20 40 MG Acetaminophen/ Hydrocodone Bitart 1 tab Q6HP PRN PO 03/10/24 09:30 03/16/24 10:30 1 TAB Diltiazem HCl 120 mg BID PO 03/12/24 20:15 03/16/24 10:21 120 MG Diphenhydramine HCl 12.5 mg Q4HP PRN IV 03/15/24 09:30 Ondansetron HCl 2 mg Q4HP PRN IV 03/15/24 09:30 Ketorolac Tromethamine 15 mg Q6HP PRN IV 03/15/24 09:30 03/20/24 09:29 Lactated Ringer's 1,000 ml @ 60 mls/hr [id number] IV 03/15/24 09:30 03/16/24 02:25 60 MLS/HR Docusate Sodium 100 mg Q12HR PO 03/15/24 10:00 03/16/24 10:21 100 MG Bisacodyl 5 mg Q12HP PRN PO 03/15/24 09:30 Apixaban 5 mg BID PO 03/16/24 22:00 Examination GEN: Healthy appearing, well-developed, NAD. PSYCH: Good Judgment. AOx3. Normal memory, mood, and affect. HEENT -Head: normocephalic atraumatic, no facial trauma, neck is supple -Eyes: PERRL, EOMI. No discharge or redness; -Ears: External ears are normal. Normal TMs. -Nose: Normal nares. -Mouth and throat: MMM. Normal gums, mucosa, palate,. Good dentition. NECK: Supple, with no masses. CV: RRR, no m/r/g. LUNGS: respiratory effort normal, speaks in full sentences, no tripod position, no accessory muscle use. Lungs clear to auscultation without rhonchi, wheezes, rales ABD: Soft, ND/NT. No evidence of fluid wave. No pulsatile masses on exam, rebound tenderness, Nichols sign or pain over Mcburney's point. : N/A SKIN: Warm, well perfused. No skin rashes or abnormal lesions. MSK/skin: pain in the left hip and knee, when mobilizing right lower limb presents severe pain. Skin is dry and warm. Right foot has conserved pulses in is warm to touch. Pain in the right wrist , cast in right foot, purpura and bruise in left leg EXT: No clubbing, cyanosis, or edema. NEURO: Ambulating with no limitations. Normal muscle strength and tone. No focal deficits laboratory and microbiology Laboratory Tests 03/16/24 04:39 Test 03/16/24 04:39 Range/Units Serum Glucose 112 H 74-106 mg/dL Microbiology Date/Time Source Procedure Growth Status 03/14/24 18:55 Nose MRSA Screen - Final Complete Problem List/Assessment/Plan Problem List/Assessment/Plan #s/p Open reduction internal fixation of right distal tiba, fibula fracture #s/p Open reduction internal fixation of right distal femur fracture #Comminuted fracture of the right ankle due to trauma from mechanical fall #Possible right schaphoid nondisplaced fracture- conservative management # Moderate left hip osteoarthritis #comminuted fracture involving the distal femur shaft #Syncope ruled out #Paroxysmal Atrial fibrillation (chads Vasc 2/has bled 2) with RVR at admission now normal #secondary hypercoagulability state #COPD, not on exacerbation #Current tobacco abuse #Subclinical hypothyroidism #History of bone tumor - status post resection #ferropeninc severe anemia #Hypophosphatemia Images: ECHO: Mildly concentric left ventricular hypertrophy. Well-preserved left ventricular systolic function with estimated ejection fraction 55%. There is a grade diastolic 2 dysfunction. Normal right ventricular size and dimension. Normal left ventricular systolic function. Mildly elevated right ventricular systolic [id number] mm of mercury. Moderately dilated right and left atria. Aortic valve is thickened and calcific it is functionally bicuspid aortic valve with mild aortic valve regurgitation. The mitral valve is mildly thickened there is mild mitral valve regurgitation. There is moderate to severe tricuspid valve regurgitation. The pulmonary valve is grossly normal. No pericardial effusion. Chest CT scan: 1. No mediastinal mass is seen. 2. Vague ground-glass densities seen in the right middle lobe may reflect mild atypical pneumonia. Recommend follow-up noncontrast chest CT in 3 months to evaluate for stability. 3. Moderate to severe centrilobular emphysema. Ankle CT scan: Distal tibial and fibular fractures status post casting. Diffuse soft tissue swelling noted. wrist xray Subtle cortical lucencies are present associated with the proximal pole of the scaphoid possibly representing a nondisplaced fracture versus artifact. Recommend correlation with point tenderness. knee xray: comminuted fracture involving the distal femur shaft left leg ultrasound: no dvt Plan: 3RBC already given: hb 10.9 Iron infusion Open reduction internal fixation of right distal tibia/ fibula fracture, no complications Open reduction internal fixation of right distal femur fracture, no complications Apixaban 5 mg BID Keep diltiazem due to HR above 100s [place] and Morphine for pain Fluids 60cc/h Protonix Pending new PT evaluation after new surgery Case discussed Dr Guzmán Time spent on care 23 min Plan discussed with: Patient, Other (rn) My Orders My Orders Orders - VIVIANA SUTTON RESIDENT Procedure Category Date Status Time Pt Exercise [id number] PT 03/15/24 Logged Mins 15:44 Apixaban (Eliquis) PHA 03/16/24 In Process 22:00 Lt Lower Dvt US 03/16/24 Resulted 12:44 Dietary Evaluation Review Comments: Continue current plan of care Expected Outcomes/Goals: F/U in 3-5 days CC Plasma Assessment Blood Product Administration S: 1746 Date of Service: Mar 16, 2024 Billing Provider: BAY GUZMÁN MD Common Visit Codes: [id number] INP/OBS CARE(HIGH) VIVIANA SUTTON RESIDENT Mar 16, 2024 15:01 BAY GUZMÁN MD Mar 18, 2024 18:08
[2024-03-16] MEDS: APIXABAN 5 MG TAB PO SCH (21:50)
[2024-03-17] VITALS (7 sets, daily range): BP systolic 112–136; BP diastolic 62–82; PULSE 88–102; RESP 18–20; TEMP 97.6–98.4; O2SAT 93–97
[2024-03-17 06:05] LABS: Basophils # (auto) 0 10 ^3/uL (0-0.2); Eosinophils # (auto) 0 10 ^3/uL (0-0.8); Eosinophils % (auto) 0.1 % (0.0-7.0); Hemoglobin 10.1 g/dL (12.2-16.2)
[2024-03-17 06:09] LABS: Basophils % (auto) 0.1 % (0.0-2.0); Hematocrit 30.1 % (36.0-46.0); Lymphocytes # (auto) 1.1 10 ^3/uL (0.4-5.4); Lymphocytes % (auto) 13.1 % (10.0-50.0); Mean Corpuscular Hemoglobin 30.2 pg (28.0-32.0); Mean Corpuscular Hgb Conc. 33.4 g/dL (32.0-36.0); Mean Corpuscular Volume 90.6 fL (80.0-100.0); Monocytes # (auto) 1.1 10 ^3/uL (0-1.3); Monocytes % (auto) 12.4 % (0.0-12.0); Neutrophils # (auto) 6.4 10 ^3/uL (1.6-8.6); Neutrophils % (auto) 74.3 % (37.0-80.0); Platelet Count (auto) 438 10^3/uL (140-450); Red Blood Cells 3.33 10^6/uL (4.0-5.20); Red Cell Distribution Width 20.1 % (11.8-14.3); White Blood Cell 8.5 10^3/uL (4.4-10.8)
[2024-03-17 06:33] LABS: Alanine Aminotransferase 12 U/L (7-40); Albumin 3.4 g/dL (3.2-4.8); Alkaline Phosphatase 75 U/L (46-116); Anion Gap 8 (5-15); Aspartate Aminotransferase 22 U/L (13-40); BUN/Creatinine Ratio 19.3 (10.0-20.0); Blood Urea Nitrogen 11 mg/dL (9-23); Calcium 9.5 mg/dL (8.7-10.4); Carbon Dioxide 25 mmol/L (20-31); Chloride 106 mmol/L (98-107); Glucose 88 mg/dL (74-106); Potassium 3.5 mmol/L (3.5-5.1); Sodium 139 mmol/L (136-145)
[2024-03-17 06:34] LABS: Bilirubin, Total 0.8 mg/dL (0.2-1.0)
[2024-03-17 06:46] LABS: Total Protein 5.4 g/dL (5.7-8.2)
[2024-03-17] MEDS: KETOROLAC TROMETH 30 MG/ML 1ML VIAL IV PRN (09:52)
--- NOTE | 2024-03-17 16:28 | DVHPNRES ---
Progress Note Date Seen: Mar 17, 2024 Resident Creating Document: JOSE PRINGLE RESIDENT Medical Necessity Reason Pt with a Central, PICC or Fol: No Subjective Review of Systems Kathy Brooks is a 69-year-old female patient who presents to the ED with chief complaint of lower right ankle and knee pain intensity 10/10 and not being able to bear weight on same limb after sustaining mechanical fall with no loss of consciousness. Mechanism of fall was secondary to attempt to mobilize with walker, but her right hand did not hold properly the walker due to wrist pain, making her lose her balance and falling on the ground from her own height. 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 Current smoker (over 20 pack year history of smoking). Denies alcohol and other drug abuse Allergies: Penicillin Home medication: Diltiazem, aspirin 325 mg p.o. daily, vitamin-D 2000 units daily, ibuprofen 200 mg p.r.n., Pepcid Patient seen and examined at bedside. Patient is still complains of pain, but is better since she was admitted. Currently status post up of right ankle and knee surgery. Pending SNF placement. Objective vital signs Vital Sign Date Time Temp Pulse Resp B/P (MAP) Pulse Ox O2 Delivery O2 Flow Rate FiO2 03/17/24 13:00 97.7 102 18 126/79 (95) 93 97.7 03/17/24 08:00 Room Air* 0 21 Total Intake and Output 03/16/24 03/16/24 03/17/24 15:00 23:00 07:00 Intake Total 50 ml 1220 ml 100 ml Output Total 600 ml 1150 ml Balance 50 ml 620 ml -1050 ml medications Current Medications Medications Dose Ordered Sig/Jez Route Start Time Stop Time Status Last Admin Dose Admin Acetaminophen 650 mg Q6HP PRN PO 03/08/24 19:30 Cancel Morphine Sulfate 2 mg Q4HPRN PRN IV 03/08/24 19:30 03/15/24 00:52 2 MG Pantoprazole Sodium 40 mg DAILY IV 03/09/24 10:00 03/17/24 09:50 40 MG Acetaminophen/ Hydrocodone Bitart 1 tab Q6HP PRN PO 03/10/24 09:30 03/17/24 14:59 1 TAB Diltiazem HCl 120 mg BID PO 03/12/24 20:15 03/17/24 09:51 120 MG Diphenhydramine HCl 12.5 mg Q4HP PRN IV 03/15/24 09:30 Ondansetron HCl 2 mg Q4HP PRN IV 03/15/24 09:30 Ketorolac Tromethamine 15 mg Q6HP PRN IV 03/15/24 09:30 03/20/24 09:29 03/17/24 09:52 15 MG Docusate Sodium 100 mg Q12HR PO 03/15/24 10:00 03/17/24 09:51 100 MG Bisacodyl 5 mg Q12HP PRN PO 03/15/24 09:30 Apixaban 5 mg BID PO 03/16/24 22:00 03/17/24 09:51 5 MG Examination Patient lying in bed, in no acute distress General: Lucid, afebrile, mucosae are moist Cardiovascular: Normal S1 and S2. No murmurs, gallops or rubs Respiratory: Normal ventilation mechanics. Clear lung sounds on auscultation Abdomen: Soft, nontender, no organomegaly, normal bowel sounds MSK/skin: Mobilizes 4 limbs, when mobilizing right lower limb presents severe pain. Skin is dry and warm. Right foot has conserved pulses and warm to touch. Presents purpuric on left thigh. Surgical wounds with no dysphagia no hematoma Neurological: Oriented in 3 spheres. No motor no sensitive deficits. Pupils are isocoric and reactive laboratory and microbiology Laboratory Tests 03/17/24 05:06 Test 03/17/24 05:06 Range/Units Serum Glucose 88 74-106 mg/dL Microbiology Date/Time Source Procedure Growth Status 03/14/24 18:55 Nose MRSA Screen - Final Complete Problem List/Assessment/Plan Problem List/Assessment/Plan Comminuted fracture of the right ankle and knee due to trauma from mechanical fall with no loss of consciousness - status post op of reduction internal fixation of right distal tibia-fibula and posterior open reduction internal fixation of right distal femur fracture Surgical intervention completed on 03/11/2024 and posterior 03/14/2024 Orthopedic on board: Initial surgery completed of right ankle fracture, posteriorly diagnosed right knee fracture once patient has started ambulating with PT, completed right knee surgery and a 2nd time Cardiological clearance was completed before surgeries Planning discharge to SNF for PT rehabilitation Possible right schaphoid nondisplaced fracture- conservative management Evidence on right hand x-ray senior tax specialist on board: Conservative management Paroxysmal Atrial fibrillation RVR ([id number] score of 2/HAS-BLED of 2) secondary hypercoagulability state - not anticoagulated as outpatient due to high-risk of bleeding Managed with diltiazem an aspirin as outpatient Currently in hospitalization patient on apixaban 5 mg p.o. b.i.d. EKG in this visit shows atrial fibrillation with normal ventricular response, no ST alteration. Completed echocardiogram: Mildly concentric LVH, LVEF 55%, grade two diastolic dysfunction, RVSP 35 mmHg COPD, not on exacerbation Oxygen supplementation through nasal cannula Completed chest CT: Vague ground-glass densities seen in the right middle lobe may reflect mild atypical pneumonia. Recommend follow-up noncontrast chest CT in 3 months to evaluate for stability. Moderate to severe centrilobular emphysema. Severe iron deficiency microcytic anemia Required 3 units of RBCs during this admission Currently patient is on apixaban 5 mg p.o. b.i.d. Monitoring H&H. Currently is stable. Continue with IV iron Moderate left hip osteoarthritis Optimize pain medication Current tobacco abuse Smoking cessation counseling for 18 minutes Fall risk prevention Recommend physical therapy eval postoperatively History of bone tumor - status post resection Completed surgery at age 13 Sick euthyroid syndrome Monitor Goals of care discussed with patient for 20 minutes: Full code status Discussed plan with Dr. Guzmán, patient and nurses: Patient is completing PT sessions during hospitalization, the patient is noncompliant due to pain. Planning to discharge to SNF to continue PT session rehabilitation. We will discharge with apixaban 5 mg p.o. b.i.d.. Plan discussed with: Patient, Other (Nurses) Dietary Evaluation Review Comments: Continue current plan of care Expected Outcomes/Goals: F/U in 3-5 days CC Plasma Assessment Blood Product Administration S: 1746 Date of Service: Mar 17, 2024 Billing Provider: BAY GUZMÁN MD Common Visit Codes: [id number] INP/OBS CARE(MOD) JOSE PRINGLE RESIDENT Mar 17, 2024 16:28 BAY GUZMÁN MD Mar 18, 2024 18:08
[2024-03-18] VITALS (7 sets, daily range): BP systolic 97–133; BP diastolic 61–80; PULSE 88–128; RESP 16–20; TEMP 97.2–98.1; O2SAT 94–98
[2024-03-18 08:01] LABS: Chloride 107 mmol/L (98-107); Sodium 140 mmol/L (136-145)
[2024-03-18 08:02] LABS: Anion Gap 6 (5-15); Carbon Dioxide 27 mmol/L (20-31)
[2024-03-18 08:03] LABS: Calcium 8.8 mg/dL (8.7-10.4)
[2024-03-18 08:04] LABS: Basophils # (auto) 0 10 ^3/uL (0-0.2); Basophils % (auto) 0.2 % (0.0-2.0); Eosinophils # (auto) 0.1 10 ^3/uL (0-0.8); Eosinophils % (auto) 1.1 % (0.0-7.0); Hematocrit 30.6 % (36.0-46.0); Hemoglobin 10.2 g/dL (12.2-16.2); Mean Corpuscular Hemoglobin 30.2 pg (28.0-32.0); Mean Corpuscular Hgb Conc. 33.4 g/dL (32.0-36.0); Mean Corpuscular Volume 90.2 fL (80.0-100.0); Monocytes # (auto) 0.7 10 ^3/uL (0-1.3); Monocytes % (auto) 10.6 % (0.0-12.0); Neutrophils # (auto) 4.6 10 ^3/uL (1.6-8.6); Neutrophils % (auto) 72.1 % (37.0-80.0); Nucleated Red Blood Cells % 0.1 %; Platelet Count (auto) 483 10^3/uL (140-450); Red Blood Cells 3.39 10^6/uL (4.0-5.20); Red Cell Distribution Width 20.1 % (11.8-14.3); White Blood Cell 6.4 10^3/uL (4.4-10.8)
[2024-03-18 08:07] LABS: Blood Urea Nitrogen 11 mg/dL (9-23); Glucose 83 mg/dL (74-106)
[2024-03-18 08:08] LABS: Magnesium 1.7 mg/dL (1.6-2.6)
[2024-03-18 08:15] LABS: Phosphorus 2.1 mg/dL (2.4-5.1); Potassium 3.5 mmol/L (3.5-5.1)
[2024-03-18] MEDS: ONDANSETRON HCL 4 MG/2 ML VIAL IV PRN (09:15)
--- NOTE | 2024-03-18 13:39 | DVHDSRES ---
Discharge Summary Date of Admission Resident Creating Document: SEN STEELE RESIDENT Mar 08, 2024 at 19:28 Date of Discharge: Mar 19, 2024 Admitting Diagnosis Comminuted fracture of the right ankle and knee due to fall Labs/Diagnostic Data: Laboratory Results Test 03/18/24 06:46 03/17/24 05:06 03/11/24 05:34 03/10/24 05:11 White Blood Count 6.4 10^3/uL (4.4-10.8) Red Blood Count 3.39 10^6/uL (4.0-5.20) Hemoglobin 10.2 g/dL (12.2-16.2) Hematocrit 30.6 % (36.0-46.0) Mean Corpuscular Volume 90.2 fL (80.0-100.0) Mean Corpuscular Hemoglobin 30.2 pg (28.0-32.0) Mean Corpuscular Hemoglobin Concent 33.4 g/dL (32.0-36.0) Red Cell Distribution Width 20.1 % (11.8-14.3) Platelet Count 483 10^3/uL (140-450) Mean Platelet Volume 6.9 fL (6.9-10.8) Neutrophils (%) (Auto) 72.1 % (37.0-80.0) Lymphocytes (%) (Auto) 16.0 % (10.0-50.0) Monocytes (%) (Auto) 10.6 % (0.0-12.0) Eosinophils (%) (Auto) 1.1 % (0.0-7.0) Basophils (%) (Auto) 0.2 % (0.0-2.0) Neutrophils # (Auto) 4.6 10 ^3/uL (1.6-8.6) Lymphocytes # (Auto) 1.0 10 ^3/uL (0.4-5.4) Monocytes # (Auto) 0.7 10 ^3/uL (0-1.3) Eosinophils # (Auto) 0.1 10 ^3/uL (0-0.8) Basophils # (Auto) 0 10 ^3/uL (0-0.2) Nucleated Red Blood Cells 0.1 % Sodium Level 140 mmol/L (136-145) Potassium Level 3.5 mmol/L (3.5-5.1) Chloride Level 107 mmol/L (98-107) Carbon Dioxide Level 27 mmol/L (20-31) Anion Gap 6 (5-15) Blood Urea Nitrogen 11 mg/dL (9-23) Creatinine 0.55 mg/dL (0.550-1.02) Glomerular Filtration Rate Calc 99 mL/min (>90) BUN/Creatinine Ratio 20.0 (10.0-20.0) Serum Glucose 83 mg/dL (74-106) Calcium Level 8.8 mg/dL (8.7-10.4) Phosphorus Level 2.1 mg/dL (2.4-5.1) Magnesium Level 1.7 mg/dL (1.6-2.6) Total Bilirubin 0.8 mg/dL (0.2-1.0) Aspartate Amino Transferase (AST) 22 U/L (13-40) Alanine Aminotransferase (ALT) 12 U/L (7-40) Alkaline Phosphatase 75 U/L (46-116) Total Protein 5.4 g/dL (5.7-8.2) Albumin 3.4 g/dL (3.2-4.8) Haptoglobin 162 mg/dL (37-355) Iron Level 18 ug/dL (50-170) Total Iron Binding Capacity 255 ug/dL (250-425) Percent Iron Saturation 7.1 % (15-50) Ferritin 48.8 ng/mL (10-291) Hemoglobin A1c 5.2 % A1C (<5.7) Test 03/09/24 14:20 03/09/24 05:48 03/08/24 23:06 03/08/24 18:18 Urine Color Light-yellow (Yellow) Urine Clarity Clear (Clear) Urine pH 6.5 (5.0-9.0) Urine Specific [place] 1.019 (1.001-1.035) Urine Protein Trace (Negative) Urine Ketones 1+ (Negative) Urine Blood Negative /uL (Negative) Urine Nitrite Negative (Negative) Urine Bilirubin Negative (Negative) Urine Urobilinogen Normal mg/dL (Negative) Urine Leukocyte Esterase Negative /uL (Negative) Urine RBC 1 /hpf (0 - 4) Urine WBC 2 /hpf (0 - 5) Urine Squamous Epithelial Cells Few /hpf (<5) Urine Bacteria None seen /hpf (None Seen) Urine Glucose Normal mg/dL (Normal) Urine Opiates Screen Pos (NEGATIVE) Urine Fentanyl Screen Pos (NEGATIVE) Urine Barbiturates Screen Neg (NEGATIVE) Urine Phencyclidine Screen Neg (NEGATIVE) Urine Amphetamines Screen Neg (NEGATIVE) Urine Benzodiazepines Screen Pos (NEGATIVE) Urine Cocaine Screen Neg (NEGATIVE) Urine Cannabinoids Screen Neg (NEGATIVE) Vitamin D 25-Hydroxy 32.7 ng/mL (30.0-100) Free Thyroxine (T4) Calculated 0.94 ng/dL (0.89-1.76) Free Triiodothyronine (T3) pg/mL 2.89 pg/mL (2.3-4.2) Prothrombin Time 11.1 sec (9.3-11.8) Prothrombin Time INR 1.05 (0.9-1.15) Activated Partial Thromboplast Time 24.9 SEC (24.5-34.5) Thyroid Stimulating Hormone (TSH) 5.57 uIU/mL (0.55-4.78) Other Laboratory Tests 03/18/24 06:46 Brief Hx & Hospital Course: Kathy Connolly is a 69-year-old female with past medical history ofParoxysmal A-Fib (CV 2/HB 2) on Diltiazem and with no on blood thinners due to high-risk of mechanical fall, COPD, 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 Mechanism of fall was secondary to attempt to mobilize with walker, but her right hand did not hold properly the walker due to wrist pain, making her lose her balance and falling on the ground from her own height. Denies palpitation, syncope, chest pain, dyspnea, nausea, vomiting, diarrhea, dysuria, sick contacts, recent travel and other motor or sensory deficits. Patient Found to have Comminuted fracture of the right ankle and knee due to trauma from mechanical fall with no loss of consciousness, status post op of reduction internal fixation of right distal tibia-fibula on 03/11/2024 and posterior open reduction internal fixation of right distal femur fracture on 03/15/2024. And Possible right schaphoid nondisplaced fracture- conservative management. Patient's meds were sent to the pharmacy electronically. Patient was advised to follow up with the PCP in 1 week and also to follow up with the orthopedic surgeon as per schedule. Patient was clinically stable on discharge. Patient is clinically improving and being discharge to correction facility. Operations or Procedures PATIENT: KATHY CONNOLLY ACCT: [id number] UNIT: [id number] : 1955 LOC: ER ROOM / BED: / AGE / SEX: 69 / F ADM STATUS: REG ER SERVICE 41 ORDERING PHYSICIAN: THOMAS SHANNON MD PROCEDURE(s): RANK2 - R ANKLE 2 VIEW XRAY REASON: ankle pain ORDER NUMBER(s): [id number], ACCESSION NUMBER(s): [id number] EXAM: XY R ANKLE 2 VIEW XRAY CLINICAL HISTORY: ankle pain COMPARISON: None TECHNIQUE: XY R ANKLE 2 VIEW XRAY Findings/Impression: 2 views of the right ankle. Moderately displaced comminuted fractures of the distal tibial and fibular metadiaphyses with moderate lateral angulation of the distal fracture fragments. Moderate soft tissue edema. Possible nondisplaced longitudinal fracture of the distal 2nd metatarsal. There is no evidence of dislocation, blastic, or lytic lesions. No radiopaque foreign bodies. ATED BY: DANA SMITH DO DICTATED DATE/TIME: 03/08/241847 SIGNED BY: DANA SMITH DO SIGNED DATE/TIME: 03/08/241847 DIAGNOSTIC IMAGING Diagnostic Imaging Report : [id number] Signed PATIENT: KATHY CONNOLLY ACCT: [id number] UNIT: [id number] : 1955 LOC: TELE ROOM / BED: [address] [place] [address] AGE / SEX: 69 / F ADM STATUS: ADM IN SERVICE 55 ORDERING PHYSICIAN: THOMAS SHANNON MD PROCEDURE(s): RANK2 - R ANKLE 2 VIEW XRAY REASON: POST REDUCTION ORDER NUMBER(s): [id number], ACCESSION NUMBER(s): [id number] EXAM: XY R ANKLE 2 VIEW XRAY CLINICAL HISTORY: POST REDUCTION COMPARISON: XY R ANKLE 2 VIEW XRAY on DOS: 03/08/24 TECHNIQUE: XY R ANKLE 2 VIEW XRAY Findings/Impression: 2 views of the right ankle. Suboptimal visualization of the fine osseous and soft tissue details due to the overlying fibrous splint. Improved alignment of the comminuted fractures of the distal tibia and fibula with mild residual anterior angulation of the distal fracture fragments. There is no evidence of dislocation, blastic, or lytic lesions. ATED BY: DANA SMITH DO DICTATED DATE/TIME: 03/08/242114 SIGNED BY: DANA SMITH DO SIGNED DATE/TIME: 03/08/242114 CC: Diagnostic Imaging Report : [id number] Signed PATIENT: KATHY CONNOLLY ACCT: [id number] UNIT: [id number] : 1955 [facility]GE / SEX: 69 / F ADM STATUS: ADM IN SERVICE 06 ORDERING PHYSICIAN: RAMONA GARNER PROCEDURE(s): CXRP - CHEST PORTABLE REASON: preop ORDER NUMBER(s): [id number], ACCESSION NUMBER(s): [id number] CHEST RADIOGRAPH Indication: preop Technique: Single frontal view of the chest was obtained Comparison: EKG on DOS: 02/08/22 IMPRESSION: The heart appears normal in size. No sizable effusion or pneumothorax. The right lung appears clear. Somewhat irregular appearance of the left hilum which may be vascular versus mass. Attention on follow-up versus cross-sectional imaging is recommended when the patient is clinically able. ATED BY: EUGENIE HECTOR MD DICTATED DATE/TIME: 03/09/24407 SIGNED BY: EUGENIE HECTOR MD SIGNED DATE/TIME: 03/09/24407 CC: PATIENT: KATHY CONNOLLY ACCT: [id number] UNIT: [id number] : 1955 LOC: [facility]GE / SEX: 69 / F ADM STATUS: ADM IN SERVICE 06 ORDERING PHYSICIAN: RAMONA GARNER PROCEDURE(s): CXRP - CHEST PORTABLE REASON: preop ORDER NUMBER(s): [id number], ACCESSION NUMBER(s): [id number] CHEST RADIOGRAPH Indication: preop Technique: Single frontal view of the chest was obtained Comparison: EKG on DOS: 02/08/22 IMPRESSION: The heart appears normal in size. No sizable effusion or pneumothorax. The right lung appears clear. Somewhat irregular appearance of the left hilum which may be vascular versus mass. Attention on follow-up versus cross-sectional imaging is recommended when the patient is clinically able. ATED BY: EUGENIE HECTOR MD DICTATED DATE/TIME: 03/09/24407 SIGNED BY: EUGENIE HECTOR MD SIGNED DATE/TIME: 03/09/24407 Signed PATIENT: KATHY CONNOLLY ACCT: [id number] UNIT: [id number] : 1955 LOC: [facility] ROOM / BED: [address] [place] [address] A AGE / SEX: 69 / F ADM STATUS: ADM IN SERVICE 0556 ORDERING PHYSICIAN: LD DIAMOND PROCEDURE(s): CX2CT - CHEST WITHOUT CONTRAST REASON: possible mediastenal mass. ORDER NUMBER(s): [id number], ACCESSION NUMBER(s): [id number] Procedure: CT CHEST WITHOUT CONTRAST Reason for study/Clinical History: possible mediastenal mass. Comparison Study: None available at time of dictation. Exam Date: 03/09/2024 08:37 AM TECHNIQUE: Multidetector CT of the chest was performed from the lung apices to the upper abdomen without the use of intravenous contract. Axial, coronal and sagittal multiplanar reformats were performed. Radiation Dose Information: CT Dose: CTDI volume is 5.14 mGy. Dose-length product is 192.24 mGy*cm The dose indicators for CT are the volume Computed Tomography (CT) Dose Index (CTDIvol) and the Dose Length Product (DLP), and are measured in units of mGy and mGy-cm, respectively. These indicators are not patient dose, but values generated from the CT scanner acquisition factors. The report includes radiation exposure data for exposures received during this examination. FINDINGS: Lower neck: Normal thyroid. Lungs: Moderate to severe centrilobular emphysema. Vague ground-glass densities in the right middle lobe may reflect mild atypical pneumonia. Bibasilar atelectasis. No pleural effusion or pneumothorax. Heart/Vascular Structures: Normal heart size. No pericardial effusion. No mediastinal mass is seen. Lymph Nodes: No adenopathy Pleura: No pleural effusion or significant pneumothorax. Musculoskeletal: No acute osseous abnormality. Soft tissues: Normal. Upper abdomen: Limited portions of the upper abdomen are unremarkable. IMPRESSION: 1. No mediastinal mass is seen. 2. Vague ground-glass densities seen in the right middle lobe may reflect mild atypical pneumonia. Recommend follow-up noncontrast chest CT in 3 months to evaluate for stability. 3. Moderate to severe centrilobular emphysema. Radiation optimization: All CT scans at this facility use at least one of these dose optimization techniques: automated exposure control mA and/or kV adjustment per patient size (includes targeted exams where dose is matched to clinical indication) or iterative reconstruction. ATED BY: SABIHA MEDRANO MD DICTATED DATE/TIME: 03/09/24957 SIGNED BY: SABIHA MEDRANO MD SIGNED DATE/TIME: 03/09/24957 CC: Diagnostic Imaging Report : [id number] Signed PATIENT: KATHY CONNOLLY ACCT: [id number] UNIT: [id number] : 1955 LOC: [facility] ROOM / BED: [facility] / A AGE / SEX: 69 / F ADM STATUS: ADM IN SERVICE 2 ORDERING PHYSICIAN: YANG CONLEY MD PROCEDURE(s): RANCT - CT R ANKLE WO CONTRAST REASON: fracture ORDER NUMBER(s): [id number], ACCESSION NUMBER(s): [id number] Procedure: CT CT R ANKLE WO CONTRAST 03/09/2024 08:34 AM Indication: fracture Comparison Study: Radiograph dated 03/08/2024 Technique: Axial images of the right ankle were obtained and reformatted in coronal and sagittal planes. All CT scans at this medical facility are performed using dose modulation techniques as appropriate to a performed exam including the following: Automated exposure control was utilized; adjustment of the MA and/or KV according to patient size; and use of iterative reconstruction technique. CT Dose: CTDI volume is 7.75 mGy. Dose-length product is 187.68 mGy*cm FINDINGS: Bones: Comminuted, impacted, apex dorsal angulated distal tibial metadiaphysis. Acute nondisplaced fracture of the anterior -medial tibial plafond noted. Acute, impacted comminuted distal fibular shaft noted. Old corticated avulsion fracture of the lateral malleolus is seen. There is a cast overlying the ankle. Soft tissues: Diffuse soft tissue swelling noted. Moderate atherosclerotic calcification is seen. There is no discontinuity of the Achilles tendon. IMPRESSION: Distal tibial and fibular fractures status post casting. Diffuse soft tissue swelling noted. ATED BY: DELORES CARDENAS MD DICTATED DATE/TIME: 03/09/24 100 SIGNED BY: DELORES CARDENAS MD SIGNED DATE/TIME: 03/09/24 1004 CC: Ph: [phone] DIAGNOSTIC IMAGING Diagnostic Imaging Report : [id number] Signed PATIENT: KATHY CONNOLLY ACCT: [id number] UNIT: [id number] : 1955 LOC: [facility] ROOM / BED: [facility] / A AGE / SEX: 69 / F ADM STATUS: ADM IN SERVICE 07 ORDERING PHYSICIAN: JOSE PRINGLE RESIDENT PROCEDURE(s): RWRI - R WRIST 3+ VIEW XRAY REASON: Right wrist pain ORDER NUMBER(s): [id number], ACCESSION NUMBER(s): [id number] CLINICAL INDICATION: Right wrist pain TECHNIQUE: XY R WRIST 3+ VIEW XRAY Comparison: XY R ANKLE 2 VIEW XRAY on DOS: 03/08/24, XY R ANKLE 2 VIEW XRAY on DOS: 03/08/24 FINDINGS/IMPRESSION: : Limited examination secondary to osteopenia and overlying artifact. Subtle cortical lucencies are present associated with the proximal pole of the scaphoid possibly representing a nondisplaced fracture versus artifact. Recommend correlation with point tenderness. ATED BY: LEOBARDO SOLIS MD DICTATED DATE/TIME: 03/11/24649 SIGNED BY: LEOBARDO SOLIS MD SIGNED DATE/TIME: 03/11/2450 CC: Signed PATIENT: KATHY CONNOLLY ACCT: [id number] UNIT: [id number] : 1955 LOC: TELE-CENTR ROOM / BED: [facility] / A AGE / SEX: 69 / F ADM STATUS: ADM IN SERVICE 1228 ORDERING PHYSICIAN: PHANI BERGER MD PROCEDURE(s): RANK2 - R ANKLE 2 VIEW XRAY REASON: ORIF RIGHT ANKLE ORDER NUMBER(s): [id number], ACCESSION NUMBER(s): [id number] C-ARM FLUOROSCOPY: PROCEDURE: ORIF right ankle FLUOROSCOPY TIME: 17.5 sec ATED BY: CHARBEL CONLEY MD DICTATED DATE/TIME: 03/11/24 124 SIGNED BY: CHARBEL CONLEY MD SIGNED DATE/TIME: 03/11/24 124 CC: DIAGNOSTIC IMAGING Diagnostic Imaging Report : [id number] Signed PATIENT: KATHY CONNOLLY ACCT: [id number] UNIT: [id number] : 1955 LOC: TELE-CENTR ROOM / BED: [address] [place] [address] AGE / SEX: 69 / F ADM STATUS: ADM IN SERVICE 1228 ORDERING PHYSICIAN: PHANI BERGER MD PROCEDURE(s): CARM1 - C ARM FLUOROSCOPY UP TO 60MIN REASON: ORIF RIGHT ANKLE ORDER NUMBER(s): [id number], ACCESSION NUMBER(s): [id number] C-ARM FLUOROSCOPY: PROCEDURE: ORIF right ankle FLUOROSCOPY TIME: 17.5 sec ATED BY: CHARBEL CONLEY MD DICTATED DATE/TIME: 03/11/24 124 SIGNED BY: CHARBEL CONLEY MD SIGNED DATE/TIME: 03/11/24 124 CC: PATIENT: KATHY CONNOLLY ACCT: [id number] UNIT: [id number] : 1955 LOC: TELE-CENTR ROOM / BED: [facility] / A AGE / SEX: 69 / F ADM STATUS: ADM IN SERVICE 1015 ORDERING PHYSICIAN: VIVIANA SUTTON RESIDENT PROCEDURE(s): LHIP - L HIP COMPLETE XRAY REASON: hip pain ORDER NUMBER(s): [id number], ACCESSION NUMBER(s): [id number] CLINICAL INDICATION: hip pain TECHNIQUE: XY L HIP COMPLETE XRAY Comparison: None FINDINGS/IMPRESSION: There is no evidence of acute fracture or dislocation. Moderate left hip osteoarthritis The alignment is anatomical. There is no radiopaque foreign body. ATED BY: CHARBEL CONLEY MD DICTATED DATE/TIME: 03/13/24 1224 SIGNED BY: CHARBEL CONLEY MD SIGNED DATE/TIME: 03/13/24 1224 CC: DIAGNOSTIC IMAGING Diagnostic Imaging Report : [id number] Signed PATIENT: KATHY CONNOLLY ACCT: [id number] UNIT: [id number] : 1955 LOC: TELE-CENTR ROOM / BED: [facility] / A AGE / SEX: 69 / F ADM STATUS: ADM IN SERVICE 1018 ORDERING PHYSICIAN: VIVIANA SUTTON RESIDENT PROCEDURE(s): RKNE2 - R KNEE 2V XRAY REASON: knee pain ORDER NUMBER(s): [id number], ACCESSION NUMBER(s): [id number] CLINICAL INDICATION: knee pain TECHNIQUE: XY R KNEE 2V XRAY Comparison: XY R ANKLE 2 VIEW XRAY on DOS: 03/11/24, XY R ANKLE 2 VIEW XRAY on DOS: 03/08/24, XY R ANKLE 2 VIEW XRAY on DOS: 03/08/24 FINDINGS/IMPRESSION: comminuted fracture involving the distal femur shaft. Moderate joint effusion. Diffuse soft tissue swelling. ATED BY: CHARBEL CONLEY MD DICTATED DATE/TIME: 03/13/24 1226 SIGNED BY: CHARBEL CONLEY MD SIGNED DATE/TIME: 03/13/24 1226 CC: Ph: [phone] DIAGNOSTIC IMAGING Diagnostic Imaging Report : [id number] Signed PATIENT: KATHY CONNOLLY ACCT: [id number] UNIT: [id number] : 1955 [facility] SEX: 69 / F ADM STATUS: ADM IN SERVICE 0911 ORDERING PHYSICIAN: PHANI BERGER MD PROCEDURE(s): CARM1 - C ARM FLUOROSCOPY UP TO 60MIN REASON: ORIF DISTAL RIGHT FEMUR ORDER NUMBER(s): [id number], ACCESSION NUMBER(s): [id number] CLINICAL INFORMATION: 69 years old, Female; ORIF RIGHT DISTAL FEMUR. TECHNIQUE: Fluoroscopy was provided for assistance during open reduction internal fixation of the right distal femur. 4 fluoroscopic images were submitted. Total fluoroscopy time was 3.9 s. Cumulative radiation dose was 0.23 mGy. COMPARISON: XY R KNEE 2V XRAY on DOS: 03/13/24 FINDINGS: Fluoroscopy was provided for assistance during open reduction internal fixation of the distal right femur. Images demonstrate placement of a compression plate and associated screws transfixing the distal right femur fracture site. IMPRESSION: Fluoroscopy was provided for assistance during open reduction internal fixation of the distal right femur as described above. Please correlate with the operative report. ATED BY: HARLEY TUCKER DO DICTATED DATE/TIME: 03/15/24 1027 SIGNED BY: HARLEY TUCKER DO SIGNED DATE/TIME: 03/15/24 1027 CC: Signed PATIENT: KATHY CONNOLLY ACCT: [id number] UNIT: [id number] : 1955 [facility] SEX[facility] 69 / F ADM STATUS: ADM IN SERVICE 0912 ORDERING PHYSICIAN: PHANI BERGER MD PROCEDURE(s): RANK2 - R ANKLE 2 VIEW XRAY REASON: EVALUATE HARDWARE PLACEMENT ORDER NUMBER(s): [id number], ACCESSION NUMBER(s): [id number] CLINICAL INFORMATION: 69 years old, Female; EVALUATE HARDWARE PLACEMENT. TECHNIQUE: Fluoroscopy was provided for assistance during evaluation of hardware placement at the right ankle. 1 fluoroscopic image was submitted. Total fluoroscopy time was 3.9 s. Cumulative radiation dose was 0.23 mGy. COMPARISON: XY R ANKLE 2 VIEW XRAY on DOS: 03/11/24 FINDINGS: Fluoroscopy was provided for assistance during evaluation of hardware placement at the right ankle. Images demonstrate compression plates and associated screws transfixing the tibia and fibula. IMPRESSION: Fluoroscopy was provided for assistance during evaluation of hardware placement at the right ankle as described above. Please correlate with the operative report. ATED BY: HARLEY TUCKER DO DICTATED DATE/TIME: 03/15/24 103 SIGNED BY: HARLEY TUCKER DO SIGNED DATE/TIME: 03/15/24 103 CC: DIAGNOSTIC IMAGING Diagnostic Imaging Report : [id number] Signed PATIENT: KATHY CONNOLLY ACCT: [id number] UNIT: [id number] : 1955 LOC: [facility] ROOM / BED: [address] [place] [address] AGE / SEX: 69 / F ADM STATUS: ADM IN SERVICE 1 ORDERING PHYSICIAN: PHANI BERGER MD PROCEDURE(s): RFEM - R FEMUR XRAY REASON: ORIF RIGHT DISTAL FEMUR ORDER NUMBER(s): [id number], ACCESSION NUMBER(s): [id number] CLINICAL INFORMATION: 69 years old, Female; ORIF RIGHT DISTAL FEMUR. TECHNIQUE: Fluoroscopy was provided for assistance during open reduction internal fixation of the right distal femur. 4 fluoroscopic images were submitted. Total fluoroscopy time was 3.9 s. Cumulative radiation dose was 0.23 mGy. COMPARISON: XY R KNEE 2V XRAY on DOS: 03/13/24 FINDINGS: Fluoroscopy was provided for assistance during open reduction internal fixation of the distal right femur. Images demonstrate placement of a compression plate and associated screws transfixing the distal right femur fracture site. IMPRESSION: Fluoroscopy was provided for assistance during open reduction internal fixation of the distal right femur as described above. Please correlate with the operative report. ATED BY: HARLEY TUCKER DO DICTATED DATE/TIME: 03/15/24 1027 SIGNED BY: HARLEY TUCKER DO SIGNED DATE/TIME: 03/15/24 102 CC: [place] [address] Ph: [phone] DIAGNOSTIC IMAGING Diagnostic Imaging Report : [id number] Signed PATIENT: KATHY CONNOLLY ACCT: [id number] UNIT: [id number] : 1955 LOC: TELE-CENTR ROOM / BED: 0222T / B AGE / SEX: 69 / F ADM STATUS: ADM IN SERVICE 1244 ORDERING PHYSICIAN: VIVIANA SUTTON PROCEDURE(s): LLDVT - LT Lower DVT REASON: rule out dvt ORDER NUMBER(s): [id number], ACCESSION NUMBER(s): [id number] EXAM: US Duplex Left Lower Extremity Veins CLINICAL INDICATION: rule out dvt TECHNIQUE: Real-time duplex ultrasound scan of the left lower extremity veins integrating B-mode two-dimensional vascular structure, Doppler spectral analysis, color flow Doppler imaging and compression. COMPARISON: None FINDINGS: DEEP VEINS: Unremarkable. No DVT in the visualized common femoral, femoral, proximal deep femoral or popliteal veins. The veins demonstrate normal color flow, are normally compressible, with normal phasic flow and/or augmentation response. SUPERFICIAL VEINS: Unremarkable. No thrombus in the visualized great saphenous vein. SOFT TISSUES: No acute findings. No popliteal cyst. OTHER FINDINGS: . . . IMPRESSION: No DVT. ATED BY: CRISPIN HUTCHINSON MD DICTATED DATE/TIME: 03/16/24 135 SIGNED BY: CRISPIN HUTCHINSON MD SIGNED DATE/TIME: 03/16/24 1356 CC: Ph: [phone] DIAGNOSTIC IMAGING Diagnostic Imaging Report : [id number] Signed PATIENT: KATHY CONNOLLY ACCT: [id number] UNIT: [id number] : 1955 LOC: TELE-CENTR ROOM / BED: 0215T / A AGE / SEX: 69 / F ADM STATUS: ADM IN SERVICE 192 ORDERING PHYSICIAN: RAMONA GARNER RESIDENT PROCEDURE(s): ECIDC - ECHO 2D MODE CARDIAC DOP REASON: afib ORDER NUMBER(s): [id number], ACCESSION NUMBER(s): [id number] APPROVED REPORT EXAM: LIMITED Two-dimensional and M-mode echocardiogram with Doppler and color Doppler. Blood Pressure: 107/63 mmHg INDICATION afib RISK FACTORS Obesity: Height: 5'6, Weight: 122 DIMENSIONS LVDd 4.3 (3.8-5.7cm) LA (2D) 3.4 (1.9-4.0cm) Aortic Root (2.0- 3.7cm) LVDs 3.7 (2.5-4.0cm) LA (MM) (1.9-4.0cm) Aortic Cusp Exc (1.5- 2.0cm) EF (%) 30.0 (55-70%) Rt. Atrium (1.9-4.0cm) Asc. Aorta 3.5 cm IVSd 0.8 (0.7-1.1cm) RV (D) (1.8-2.4cm) PWd 1.2 (0.7-1.1cm) Mitral Valve Mitral Mitral Stenosis E wave 0.80m/s MV Mean GR. mmHg A wave 0.01m/s MV Peak GR. 65mmHg E/A ratio 80.0 2D MVA cm2 DECEL Time 167ms PRESS 1/2 Time ms Aortic Valve Aortic Valve Aortic Stenosis V1 0.91m/s AO Mean GR. 4mmHg V2 1.25m/s AO Peak GR. 6mmHg LVOT Diameter 2.0 (1.8-2.4cm) Doppler NOBLE 2.29cm2 Pulmonic Valve V2 0.86m/s Tricuspid Valve TR Velocity 2.73m/s RVSP 35mmHg Conclusion Mildly concentric left ventricular hypertrophy. Well-preserved left ventricular systolic function with estimated ejection fraction 55%. There is a grade diastolic 2 dysfunction. Normal right ventricular size and dimension. Normal left ventricular systolic function. Mildly elevated right ventricular systolic [id number] mm of mercury. Moderately dilated right and left atria. Aortic valve is thickened and calcific it is functionally bicuspid aortic valve with mild aortic valve regurgitation. The mitral valve is mildly thickened there is mild mitral valve regurgitation. There is moderate to severe tricuspid valve regurgitation. The pulmonary valve is grossly normal. No pericardial effusion. SIGNED BY: MARISELA SANFORD MD SIGNED DATE/TIME: 03/09/24 1327 CC: atient: KATHY CONNOLLY Acct: [id number] : 1955 Loc: [facility] Age/Sex: 69/F Room: 0215T / Bed: A Attending Phy: VIVIANA SUTTON RESIDENT Operative Report - 2 Report Details Date: 03/11/24 Preop Diagnosis: Right distal tib fib fracture Postop Diagnosis: same Surgeon: Phani Berger MD Construction Administrator: none Anesthesiologist: Dr Raza Anesthesia: Regional Drains: none Implant: recon fitting plates, tibia-anterolateral, fibula - lateral Consent: The patient was informed of the risks and benefits of the procedure. These include but are not limited to complications of anesthesia, postoperative infection, incomplete relief of symptoms, recurrence of symptoms, damage to blood vessels, nerves and tendons, deep venous thrombosis, pulmonary embolism and possible need for repeat surgery in the future. Complications: none Estimated Blood Loss: 50cc Findings: very poor bone quality, comminuted fracture of distal tibia, fibula Indications for Surgery: unstable fracture with expected non-union, malunion without fixation , subsequent bedrest and compications associated with bedrest Name of Procedure Performed Open reduction internal fixation of right distgal tiba, fibula fracture Procedure Details Procedure Details: patient brought into the OR, received ancef 1g and TXA 1 g IVPV pre-opeatively. Spinal anetshtesia Dr Raza, no complicatons, non sterile tourniquet right thigh, sterile prep and drape right LE. TIme out performed, confirmation right side correct and ORIF of distal tib/fib correct porcedurew after review operative constent , H and P, my initials on right lower leg. compression with esmarch, tourniquet elevated to 250 mm Hg, total time, 40 min, lateral incision 15 cm, deep to fascia, fascia divided subperiosteal elevation of fibula, placement of recon plate laterally, screws proximal and distal to the comminuted fracture. The tibia was fixed by making an anterior incision, limited to 5 cm length to decrease risk of skin necrosis, incision to deep fascia, deep fascia divided, blunt dissection of deep peroneal artery and nerve medially with EHL, and EDC retracted laterally. subperosteal elevation of anterior distal tibia and anterolateral porximal tibia, then a pre-contoured anterolateral plate placed subcutaneously. C arm Fluoro showed good alignment of fracture and plate. Plate fixed with 6 distal cancellous screws and proximally with 5 bicortical screws, locking. tourniquet let down after c arm showed good alignment of fracture and plate , excellent hemostasis noted. EBL 50cc, irrigation, placement of demineralized bone graft at both tibia and fibula fractures. closure with 2.0 vicryl subvcutaneous, skin with yash. dry dressing , walker boot, strict non-wt bearing 6-8 weeks. Specimen: none Condition Stable Disposition 2 Still a Patient PHANI BERGER MD Mar 11, 2024 12:40 DICTATED BY:PHANI BERGER MD DICTATED DATE/TIME:03/11/24 1240 ELECTRONICALLY SIGNED BY:PHANI BERGER MD 03/11/241239 ELECTRONICALLY CO-SIGNED BY: Patient: KATHY CONNOLLY Acct: [id number] : 1955 Loc: [facility] Age/Sex: 69/F [facility] Attending Phy: VIVIANA SUTTON RESIDENT Operative Report - 2 Report Details Date: 03/15/24 Preop Diagnosis: Right supracondylar femur fracture Postop Diagnosis: same Surgeon: Phani Berger MD Construction Administrator: none Anesthesiologist: Dr Thompson Anesthesia: Regional Drains: none Implant: Lateral distal femoral plate Consent: The patient was informed of the risks and benefits of the procedure. These include but are not limited to complications of anesthesia, postoperative infection, incomplete relief of symptoms, recurrence of symptoms, damage to blood vessels, nerves and tendons, deep venous thrombosis, pulmonary embolism and possible need for repeat surgery in the future. Complications: none Estimated Blood Loss: 50cc Fluids: 500 cc crystalloid Findings: poor bone quality , supracondylar fracture distal femur Indications for Surgery: unstable fracture with expected non-union malunion without fixation Name of Procedure Performed Open reduction internal fixation of right distal femur fracture Procedure Details Procedure Details: Patient brought in the operating room given Ancef 2 g IV piggyback preoperatively spinal anesthetic Dr. Curran without complication nonsterile tourniquet right thigh sterile prep and drape right lower extremity keeping walker boot in place from prior surgery right distal tib-fib time-out performed comprehension right-sided correct site open reduction internal fixation right distal femur fracture correct procedure after review of operative consent history and physical my initials on right thigh exsanguination with Esmarch tourniquet elevated to 250 mm of mercury total tourniquet time 28 minutes longitudinal incision made from Gerdy's tubercle to mid mid lateral thigh sharp dissection through skin down to deep fascia deep fascia divided and elevated off of the lateral distal femur and subperiosteal elevation performed over lateral femoral shaft anatomic alignment of fracture achieved with slight traction flexion to 40 and slight valgus stress C-arm fluoro confirmed anatomic alignment of fracture on AP and lateral views a lateral distal femoral plate applied fixed with six screws cancellous distally and five screws proximally cortical fluoro taken again showing anatomic alignment of fracture and good placement of plate irrigation performed excellent hemostasis noted after tourniquet let down closure of deep fascia with some interrupted 0 Vicryl sutures subcutaneous 2-0 Vicryl skin yash fluffs ABD Coban splint from groin to toe with foot dorsiflexed to neutral position patient understands she is to be nonweightbearing for a minimum of six up to eight weeks and that she may be permanently nonweightbearing the purpose of fixation to allow more ease with [id number] transfers that given her extremely poor bone density she has extreme risk of re fracture and failure of fixation if she ambulates Specimen: none Condition Stable Disposition 2 Still a Patient PHANI BERGER MD Mar 15, 2024 09:19 DICTATED BY:PHANI BERGER MD DICTATED DATE/TIME:03/15/24918 ELECTRONICALLY SIGNED BY:PHANI BERGER MD 03/15/24918 ELECTRONICALLY CO-SIGNED BY: Condition at Discharge: Stable Final Diagnosis/Problems List #Comminuted fracture of the right ankle and knee due to trauma from mechanical fall with no loss of consciousness - status post op of reduction internal fixation of right distal tibia-fibula and posterior open reduction internal fixation of right distal femur fracture #Possible right schaphoid nondisplaced fracture- conservative management #Paroxysmal Atrial fibrillation RVR ([id number] score of 2/HAS-BLED of 2)secondary hypercoagulability state - not anticoagulated as outpatient due to high-risk of bleeding #COPD, not on exacerbation #Severe iron deficiency microcytic anemia #Moderate left hip osteoarthritis #Current tobacco abuse #Fall risk prevention # Moderate left hip osteoarthritis #History of bone tumor - status post resection #Sick euthyroid syndrome Discharge Disposition: Detention Facility Discharge Instruct/Medications Diet: Cardiac 2g Na,low cholest Activity: Light activity Follow Up/Referral: please follow up with your PCP in one week Medications: resume home medication Discharge Statement: "Patient was advised to return to the ER or call 911 if any headaches, dizziness, shortness of breath, chest pain, abdominal pain, bleeding, fevers, or worsening of medical condition. Patient was counseled about treatment plan, medications, possible side effects, patientverbalized understanding. All questions were answered to the best of my ability. This discharge took greater then 30 minutes in planning, reviewing documentation, counseling the patient, and discussing with other team members." ASSESSMENT ASSESSMENT Assessment Comminuted fracture of the right ankle and knee due to trauma from mechanical fall with no loss of consciousness - status post op of reduction internal fixation of right distal tibia-fibula and posterior open reduction internal fixation of right distal femur fracture Possible right schaphoid nondisplaced fracture- conservative management Paroxysmal Atrial fibrillation RVR ([id number] score of 2/HAS-BLED of 2) secondary hypercoagulability state - not anticoagulated as outpatient due to high-risk of bleeding COPD, not on exacerbation Severe iron deficiency microcytic anemia Moderate left hip osteoarthritis Current tobacco abuse Fall risk prevention History of bone tumor - status post resection Sick euthyroid syndrome Date of Service: Mar 18, 2024 Billing Provider: BAY MICHAELS MD Common Visit Codes: 42165-HTE/OBS DISCH DAY >30min SEN STEELE RESIDENT Mar 18, 2024 13:39 BAY MICHAELS MD Mar 18, 2024 18:08
[2024-03-19 01:00] VITALS: BP 122/71; PULSE 112; RESP 18; TEMP 98.2; O2SAT 92
[2024-03-19 05:00] VITALS: BP 132/74; PULSE 101; RESP 18; TEMP 97.2; O2SAT 92
[2024-03-19 08:00] VITALS: PULSE 90; RESP 18; O2SAT 99
[2024-03-19 08:41] VITALS: BP 120/73; PULSE 91; RESP 16; TEMP 98.2; O2SAT 99
[2024-03-19 11:38] VITALS: BP 122/83; PULSE 72; TEMP 36.8
[2024-03-19 13:34] VITALS: BP 130/65; PULSE 105; RESP 18; TEMP 98.2; O2SAT 93
--- NOTE | 2024-03-19 19:12 | DVHPNRES ---
Progress Note Date Seen: Mar 19, 2024 Resident Creating Document: SEN STEELE RESIDENT Medical Necessity Reason Pt with a Central, PICC or Fol: No Subjective Review of Systems Kathy Brooks is a 69-year-old female patient who presents to the ED with chief complaint of lower right ankle and knee pain intensity 10/10 and not being able to bear weight on same limb after sustaining mechanical fall with no loss of consciousness. Mechanism of fall was secondary to attempt to mobilize with walker, but her right hand did not hold properly the walker due to wrist pain, making her lose her balance and falling on the ground from her own height. 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 Current smoker (over 20 pack year history of smoking). Denies alcohol and other drug abuse Allergies: Penicillin Home medication: Diltiazem, aspirin 325 mg p.o. daily, vitamin-D 2000 units daily, ibuprofen 200 mg p.r.n., Pepcid Patient seen and examined at bedside. Patient's pain is much better than before. Patient was discharged to SNF today in hemodynamically stable condition. Objective vital signs Vital Sign Date Time Temp Pulse Resp B/P (MAP) Pulse Ox O2 Delivery O2 Flow Rate FiO2 03/19/24 13:34 98.2 105 18 130/65 (86) 93 98.2 03/19/24 08:00 Room Air* 0 21 Total Intake and Output 03/18/24 03/18/24 03/19/24 14:59 22:59 06:59 Intake Total 1400 ml 920 ml Output Total 1100 ml 600 ml Balance 300 ml 320 ml medications Current Medications Medications Dose Ordered Sig/Jez Route Start Time Stop Time Status Last Admin Dose Admin Acetaminophen 650 mg Q6HP PRN PO 03/08/24 19:30 Cancel Examination Patient lying in bed, in no acute distress General: Lucid, afebrile, mucosae are moist Cardiovascular: Normal S1 and S2. No murmurs, gallops or rubs Respiratory: Normal ventilation mechanics. Clear lung sounds on auscultation Abdomen: Soft, nontender, no organomegaly, normal bowel sounds MSK/skin: Mobilizes 4 limbs, when mobilizing right lower limb presents severe pain. Skin is dry and warm. Right foot has conserved pulses and warm to touch. Presents purpuric on left thigh. Surgical wounds with no dysphagia no hematoma Neurological: Oriented in 3 spheres. No motor no sensitive deficits. Pupils are isocoric and reactive laboratory and microbiology Laboratory Tests 03/18/24 06:46 Test 03/18/24 06:46 Range/Units Serum Glucose 83 74-106 mg/dL Microbiology Date/Time Source Procedure Growth Status 03/14/24 18:55 Nose MRSA Screen - Final Complete Problem List/Assessment/Plan Problem List/Assessment/Plan Problem List/Assessment/Plan Comminuted fracture of the right ankle and knee due to trauma from mechanical fall with no loss of consciousness - status post op of reduction internal fixation of right distal tibia-fibula and posterior open reduction internal fixation of right distal femur fracture Surgical intervention completed on 03/11/2024 and posterior 03/14/2024 Orthopedic on board: Initial surgery completed of right ankle fracture, posteriorly diagnosed right knee fracture once patient has started ambulating with PT, completed right knee surgery and a 2nd time Cardiological clearance was completed before surgeries Planning discharge to SNF for PT rehabilitation Possible right schaphoid nondisplaced fracture- conservative management Evidence on right hand x-ray technician inventory specialist on board: Conservative management Paroxysmal Atrial fibrillation RVR ([id number] score of 2/HAS-BLED of 2) secondary hypercoagulability state - not anticoagulated as outpatient due to high-risk of bleeding Managed with diltiazem an aspirin as outpatient Currently in hospitalization patient on apixaban 5 mg p.o. b.i.d. EKG in this visit shows atrial fibrillation with normal ventricular response, no ST alteration. Completed echocardiogram: Mildly concentric LVH, LVEF 55%, grade two diastolic dysfunction, RVSP 35 mmHg COPD, not on exacerbation Oxygen supplementation through nasal cannula Completed chest CT: Vague ground-glass densities seen in the right middle lobe may reflect mild atypical pneumonia. Recommend follow-up noncontrast chest CT in 3 months to evaluate for stability. Moderate to severe centrilobular emphysema. Severe iron deficiency microcytic anemia Required 3 units of RBCs during this admission Currently patient is on apixaban 5 mg p.o. b.i.d. Monitoring H&H. Currently is stable. Continue with IV iron Moderate left hip osteoarthritis Optimize pain medication Current tobacco abuse Smoking cessation counseling for 18 minutes Fall risk prevention Recommend physical therapy eval postoperatively History of bone tumor - status post resection Completed surgery at age 13 Sick euthyroid syndrome Monitor Goals of care discussed with patient for 20 minutes: Full code status Discussed plan with Dr. Guzmán, patient and nurses: Patient is completing PT sessions during hospitalization, the patient is noncompliant due to pain. Planning to discharge to SNF to continue PT session rehabilitation. We will discharge with apixaban 5 mg p.o. b.i.d.. Plan discussed with: Patient, Other (Nurses) Plan discussed with: Patient, Other (RN) Dietary Evaluation Review Comments: Continue current plan of care Expected Outcomes/Goals: F/U in 3-5 days CC Plasma Assessment Blood Product Administration S: [id number] Date of Service: Mar 19, 2024 Billing Provider: BAY GUZMÁN MD Common Visit Codes: 97378-OPEFRXBFOT INP/OBS CARE(MOD) SEN STEELE RESIDENT Mar 19, 2024 19:12 BAY GUZMÁN MD Mar 19, 2024 19:16
--- NOTE | 2024-03-26 13:30 | ECG ---
[facility] Test Date: 2024-03-09 Test Time: 04:09:42 Pat Name: ZIA CONNOLLY Department: Room: 0222 B Gender: F Project Administrative Assistant: MADDIE : 1955 Requested By: RAMONA LEAL Order Number: [id number] Reading MD: Sid Cardenas Measurements Intervals [place] Rate: 95 P: 0 WA: 0 QRS: 57 QRSD: 87 T: 19 QT: 335 QTc: 421 Interpretive Statements Atrial fibrillation Low voltage, extremity leads Probable anteroseptal infarct, old Electronically Signed On 03-26-2024 13:32:14 PST by Sid Cardenas Please click the below link to view image of tracing.
== END 2024-03-19 14:45 | DRG 481 ==
LOC: EDBD 16:53 → ER 16:53 → TELE 19:28 → TELE-CENTR 21:56 → CENTRAL 03-17 10:53
PROVIDERS: ADMIT Internal Medicine Geriatric Medicine; ATTEND Internal Medicine Geriatric Medicine
PROC: 0QSJXZZ Reposition Right Fibula, External Approach (ICD-10-PCS; 2024-03-08)
PROC: 0QSGXZZ Reposition Right Tibia, External Approach (ICD-10-PCS; 2024-03-08)
PROC: 0QSG04Z Reposition Right Tibia with Internal Fixation Device, Open Approach (ICD-10-PCS; 2024-03-11)
PROC: 0QUJ0KZ Supplement Right Fibula with Nonautologous Tissue Substitute, Open Approach (ICD-10-PCS; 2024-03-11)
PROC: 0QUG0KZ Supplement Right Tibia with Nonautologous Tissue Substitute, Open Approach (ICD-10-PCS; 2024-03-11)
PROC: 0QSJ04Z Reposition Right Fibula with Internal Fixation Device, Open Approach (ICD-10-PCS; principal; 2024-03-11 10:15)
PROC: 30233N1 Transfusion of Nonautologous Red Blood Cells into Peripheral Vein, Percutaneous Approach (ICD-10-PCS; 2024-03-12)
PROC: 0QSB04Z Reposition Right Lower Femur with Internal Fixation Device, Open Approach (ICD-10-PCS; 2024-03-15)
DX: S82.391A Other fracture of lower end of right tibia, initial encounter for closed fracture (principal); D68.69 Other thrombophilia; S72.451A Displaced supracondylar fracture without intracondylar extension of lower end of right femur, initial encounter for closed fracture; I48.20 Chronic atrial fibrillation, unspecified; S82.451A Displaced comminuted fracture of shaft of right fibula, initial encounter for closed fracture; J44.9 Chronic obstructive pulmonary disease, unspecified; D50.9 Iron deficiency anemia, unspecified; F17.210 Nicotine dependence, cigarettes, uncomplicated; W01.0XXA Fall on same level from slipping, tripping and stumbling without subsequent striking against object, initial encounter; I10 Essential (primary) hypertension; F17.290 Nicotine dependence, other tobacco product, uncomplicated; E87.6 Hypokalemia; E03.8 Other specified hypothyroidism; K21.9 Gastro-esophageal reflux disease without esophagitis; E83.39 Other disorders of phosphorus metabolism; M16.12 Unilateral primary osteoarthritis, left hip; E07.81 Sick-euthyroid syndrome; Z88.0 Allergy status to penicillin; Z98.51 Tubal ligation status; Y93.89 Activity, other specified; Y92.89 Other specified places as the place of occurrence of the external cause; Y99.8 Other external cause status
CPT/HCPCS: 27750; 36415; 71045; 71250; 73110; 73502; 73560; 73600; 73700; 76000; 80048; 80053; 80307; 81001; 82306; 82728; 83010; 83036; 83540; 83550; 83735; 84100; 84439; 84443; 84481; 85014; 85018; 85025; 85610; 85730; 86850; 86900; 86901; 86920; 87081; 93005; 93306; 93971; 96374; 96375; 97110; 97116; 97163; 97530; G0378; J1756; J1885; J2250; J2405; J2470; J2704; J3490